=== PATIENT | female | born 1975 | race Caucasian/White ===

== ENCOUNTER → 2025-07-08 | Outpatient (CLI) | payer MEDICAID, SELFPAY ==
--- OUTSIDE RECORDS SUMMARY | 2025-07-09 10:46 | XMS RPT_ITS | CCD ---
Author Organization [facility] Care Team Providers Care Seo Professional Name Role Phone Marika Ortega Unavailable David Steven Unavailable Inder Jordan Admitting Unavaila ble Inder Jordan Attending Unavaila ble Octavio Tomlinson Admitting Unavailable Octavio Tomlinson Attending Unavailable Ortega, Marika Admitting Unavailable Ortega, Marika Attending Unavailable Ortega, Marika Admitting Unavailable Ortega, Marika Attending Unavailable Ortega, Marika Admitting Unavailable Ortega, Marika Attending Unavailable Apolinar Ta Admitting Unavailable Apolinar Ta Attending Unavailable Ortega, Marika Admitting Unavailable Ortega, Marika Attending Unavailable Ortega, Marika Admitting Unavailable Ortega, Marika Attending Unavailable Ortega, Marika Lara Primary Care Provider [phone] Ortega, Marika Lara Primary Care Provider Ortega, Marika Primary Care Provider Ortega, Marika Lara Primary Care Provider Ortega BOULEVARD GLASSWARE REPLACER, Marika Lara Primary Care Provider Ortega BOULEVARD GLASSWARE REPLACER, Marika Lara Primary Care Provider Ortega BOULEVARD GLASSWARE REPLACER, Marika Lara Primary Care Provider [phone] PRYKHODKO, GAYATHRI OLEKSEYOVICH Referring U navailable PRYKHODKO, GAYATHRI OLEKSEYOVICH Admitting U navailable ORTEGA, MARIKA LARA Primary Care Unavailable ORTEGA, MARIKA LARA Primary Care Unavailable MARIELLE PALMER Referring Unavailab le MARIELLE PALMER Admitting Unavailab le Ortega BOULEVARD GLASSWARE REPLACER, Marika Lara Primary Care Provider Ortega BOULEVARD GLASSWARE REPLACER, Marika Lara Primary Care Provider Arpita Coto RN Unavailable Unavailable Ortega BOULEVARD GLASSWARE REPLACER, Marika Lara Primary Care Provider MEGAN MCMAHAN Attending Unavai lable ORTEGA, MARIKA LARA Primary Care Unavailable MEGAN MCMAHAN Attending Unavai lable ORTEGA, MARIKA LARA Primary Care Unavailable ORTEGA, MARIKA LARA Primary Care Unavailable ORTEGA, MARIKA LARA Attending Unavailable MEGAN MCMAHAN Attending Unavai lable ORTEGA, MARIKA LARA Primary Care Unavailable MEGAN MCMAHAN Attending Unavai lable ORTEGA, MARIKA LARA Primary Care Unavailable ROTEGA, MARIKA LARA Primary Care Unavailable ORTEGA, MARIKA LARA Primary Care Unavailable LEONID ECHOLS Attending Unavailable MIHAI HOFFMAN Attending Unavailable ORTEGA, MARIKA LARA Primary Care Unavailable MARTIN NATION Attending Unavailab le ORTEGA, MAIRKA LARA Primary Care Unavailable MARTIR FISHER Attending Unavailable SELF Referring Unavailable Allergies Allergy Classification Reported Allergen(s) Allergy Type Date of Onset Reaction(s) Facility Corticosteroids (2 sources) Hydrocortisone Drug Allergy 04-11-20 18 Itching [facility] Latex (2 sources) Latex Substance Allergy 07-09-20 17 Rash [facility] Penicillins (antibiotic) (4 sources) Amoxicillin Drug Allergy 10-03-19 18 [facility] (20 sources) Latex; Translations: [LATEX] Propensity to adverse reactions to drug 07-09-20 17 Rash, Contact Dermatitis [facility] Work Phone: (20 sources) penicillin g; Translations: [PENICILLIN G] Propensity to adverse reactions to drug 10-03-19 18 [facility] (20 sources) Amoxicillin; Translations: [AMOXICILLIN] Drug Allergy 08-15-19 19 [facility] (20 sources) Hydrocortisone; Translations: [HYDROCORTISONE] Drug Allergy 04-11-20 18 Itching [facility] Medications Current Medications Medication Drug Class(es) Dates Sig (Normalized) Sig (Original) acetaminophen 325 mg / HYDROcodone bitartrate 5 mg oral tablet (3 sources) Opioid Agonist Start: 03-10-2020 End: 03-13-2020 take 1 tablet by mouth every six hours as needed for pain HYDROcodone-aceta minophen (NORCO) 5-325 mg per tablet Indications: Cellulitis of right lower extremity Take 1 (one) tablet by mouth every 6 (six) hours as needed for pain (Days supply per fill: {DAYS SUPPLY:3) . 12 tablet 0 03/10/2020 03/13/2020 Active Start: 08-28-2017 End: 09-02-2017 take 1 tablet by mouth every four hours for pain and pain HYDROcodone-acetaminophen (NORCO) 5-325 mg per tablet Indications: Post-op pain Take 1 (one) tablet by mouth every 4 (four) hours as needed. 20 tablet 0 08/28/2017 09/02/2017 Active [id number] 200 actuat albuterol 0.09 mg/actuat metered dose inhaler (20 sources) beta2-Adrenergic Agonist Start: 06-30-2021 End: 05-01-2024 take 2 puff(s) by inhalation every four to six hours as needed for wheezing albuterol 90 mcg/actuation inhaler Inhale 2 (two) puffs every 4 to 6 hours as needed for wheezing . 6.7 g 2 04/24/2024 Active Start: 08-25-2019 End: 09-24-2019 take 2 puff(s) by inhalation every six hours as needed for wheezing ProAir HFA 90 mcg/actuation inhaler Inhale 2 (two) puffs every 6 (six) hours as needed for wheezing . 1 Inhaler 0 08/25/2019 Active Start: 08-25-2019 End: 03-02-2021 take 2 puff(s) by inhalation every six hours as needed for wheezing ProAir HFA 90 mcg/actuation inhaler Inhale 2 (two) puffs every 6 (six) hours as needed for wheezing . 1 Inhaler 0 08/25/2019 03/02/2021 Discontinued (Therapy completed) Start: 08-25-2019 albuterol inha ler 2 puff aspirin 81 mg delayed release oral tablet (3 sources) Platelet Aggregation Inhibitor, Nonsteroidal Anti-inflammatory Drug Start: 01-26-2022 End: 02-25-2022 take 1 tablet by mouth twice daily aspirin 81 MG EC tablet Take 1 (one) tablet (81 mg total) by mouth 2 (two) times a day . 60 tablet 0 01/26/2022 02/25/2022 Active busPIRone hydrochloride 10 mg oral tablet (7 sources) Start: 01-22-2020 End: 01-21-2021 take 1 tablet by mouth three times daily busPIRone (BUSPAR) 10 MG tablet Indications: Anxiety and depression Take 1 (one) tablet (10 mg total) by mouth 3 (three) times a day . 90 tablet 2 01/22/2020 01/21/2021 Active cetirizine hydrochloride 10 mg oral tablet (18 sources) Histamine-1 Receptor Antagonist Start: 11-30-2022 End: 04-24-2025 take 1 tablet by mouth once daily cetirizine (ZYRTEC) 10 MG tablet Indications: Asthma, unspecified asthma severity, unspecified whether complicated, unspecified whether persistent Take 1 (one) tablet (10 mg total) by mouth daily . 90 tablet 1 04/24/2024 04/24/2025 Active cyclobenzaprine hydrochloride 10 mg oral tablet (3 sources) Muscle Relaxant Start: 06-06-2023 End: 07-23-2023 take 1 tablet by mouth twice daily as needed for pain cyclobenzaprine (FLEXERIL) 10 MG tablet Take 1 tablet p.o. twice daily as needed muscle spasm/pain. . 8 tablet 0 06/06/2023 07/23/2023 Discontinued (Patient's Request) Start: 02-07-2022 End: 02-17-2022 take 1 tablet by mouth three times daily as needed for muscle spasms cyclobenzaprine (FLEXERIL) 10 MG tablet Indications: S/P left knee arthroscopy Take 1 (one) tablet (10 mg total) by mouth 3 (three) times a day as needed for muscle spasms . 30 tablet 0 02/07/2022 02/17/2022 Active docusate sodium 100 mg oral capsule (3 sources) Start: 05-13-2019 take 1 capsule by mouth at bedtime docusate 100 MG Cap capsule Take 1 capsule by mouth at bedtime. 30 capsule 0 05/13/2019 Active ELDERBERRY FRUIT (11 sources) End: 07-23-2023 ELDERBERRY FRUIT ORAL Take by mouth daily . 0 07/23/2023 Discontinued (Patient's Request) ELDERBERRY FRUIT ORAL Take by mouth daily . 0 Active erythromycin 0.005 mg/mg ophthalmic ointment (1 source) Macrolide, Macrolide Antimicrobial Start: 02-19-2019 End: 02-26-2019 apply 3.5 g into the eye(s) four times daily erythromycin 0.5% (ROMYCIN) ophthalmic ointment Administer into the left eye 4 (four) times a day for 7 days . 3.5 g 0 02/19/2019 02/26/2019 Active estrogens, conjugated (correction) 0.625 mg/ml vaginal cream (8 sources) Estrogen Start: 05-04-2024 conjugated estrogens (Premarin) vaginal cream Insert 0.5 (one-half) g into the vagina twice weekly . 30 g 05/04/2024 Active Start: 09-12-2023 End: 09-11-2024 conjugated estrogens (Premar in) vaginal cream Insert 0.5 (one-half) g into the vagina daily Daily for two weeks followed by twice weekly . A pea size amount when applying internally . 42.5 g 3 09/12/2023 05/04/2024 Discontinued fluconazole 150 mg oral tablet (6 sources) Azole Antifungal Start: 07-25-2023 End: 07-25-2023 take 1 tablet by mouth once fluconazole (DIFLUCAN) 150 MG tablet Take 1 (one) tablet (150 mg total) by mouth once for 1 dose . 1 tablet 0 07/25/2023 07/25/2023 Active Start: 11-10-2018 End: 06-05-2019 take 1 tablet by mouth every other day fluconazole (DIFLUCAN) 150 MG tablet Take 1 (one) tablet (150 mg total) by mouth every other day . 3 tablet 0 11/10/2018 06/05/2019 Discontinued (Therapy completed) Start: 08-15-2018 End: 08-20-2018 take 1 tablet by mouth every other day fluconazole (DIFLUCAN) 150 MG tablet Take 1 (one) tablet (150 mg total) by mouth every other day for 3 doses . 3 tablet 0 08/15/2018 08/20/2018 Active fluocinonide 0.5 mg/ml topical cream (12 sources) Corticosteroid Start: 04-04-2018 End: 11-10-2019 fluocinonide (LIDEX) 0.05 % cream Indications: Skin rash Apply topically 2 (two) times a day . 120 g 2 11/10/2018 11/10/2019 Active hydrocortisone 25 mg/ml topical cream (12 sources) Corticosteroid Start: 06-29-2019 End: 07-29-2019 hydrocortisone (ANUSOL-HC) 2.5 % Cream Indications: Rectal bleed Apply 1 Application topically 2 times daily. 1 Tube 0 06/29/2019 07/29/2019 Active Start: 12-06-2017 End: 12-06-2018 hydrocortisone valerate (ABI T-JM) 0.2 % cream Indications: Dermatitis Apply topically 2 (two) times a day. 45 g 2 12/06/2017 04/04/2018 Discontinued Start: 12-06-2017 End: 12-06-2018 hydrocortisone valerate (ABI T-JM) 0.2 % cream Indications: Dermatitis Apply topically 2 (two) times a day. 45 g 2 12/06/2017 12/06/2018 Active ibuprofen 600 mg oral tablet (17 sources) Nonsteroidal Anti-inflammatory Drug Start: 06-22-2023 take 1 tablet by mouth every six hours as needed for pain ibuprofen (ADVIL,MOTRIN) 600 MG tablet Take 1 (one) tablet (600 mg total) by mouth every 6 (six) hours as needed for pain . 10 tablet 06/22/2023 Active Start: 02-19-2019 End: 02-19-2019 ibuprofen (ADVIL,MOTRIN) tab let 400 mg Start: 10-31-2018 End: 11-30-2018 take 1 tablet by mouth every eight hours as needed ibuprofen (ADVIL,MOTRIN) 400 MG tablet Take 1 (one) tablet (400 mg total) by mouth every 8 (eight) hours as needed for pain . 20 tablet 0 10/31/2018 11/30/2018 Active Start: 04-11-2018 take 1 tablet by earle three times daily as needed for pain ibuprofen 600 MG Tab tablet Take 1 tablet by mouth 3 times daily as needed for Mild Pain for up to 5 days. 15 tablet 0 04/11/2018 Active Start: 10-04-2017 End: 10-05-2017 take 1 tablet by mouth every six hours Iron (3 sources) IRON PO Take by mouth. 0 Active Lactobacillus acidoph-L.bulgar 1 million cell Tab (3 sources) Start: 04-12-2021 Lactobacillus acidoph-L.bulgar 1 million cell Tab Take 1 tablet by mouth daily . 90 tablet 1 04/12/2021 Active lactobacillus acidophilus 1 mg oral tablet (20 sources) Start: 02-20-2019 take 1 capsule by mouth once daily Lactobacillus acidophilus 0.5 mg (100 million cell) Tab Take 1 capsule by mouth daily . 90 tablet 3 02/20/2019 Active Start: 07-21-2018 End: 11-10-2018 take 1 capsule by mouth once daily Lactobacillus acidophilus 0.5 mg (100 million cell) Tab Take 1 capsule by mouth daily . 90 tablet 3 02/20/2019 Active End: 11-10-2018 take 1 tablet by mouth once daily in the morning LACTOBACILLUS ACIDOPHILUS (PROBIOTIC ORAL) Take 1 tablet by mouth every morning. 0 11/10/2018 Discontinued (Therapy completed) End: 11-10-2018 take 1 tablet by mouth once daily in the morning LACTOBACILLUS ACIDOPHILUS (PROBIOTIC ORAL) Take 1 tablet by mouth every morning. 0 11/10/2018 Discontinued take 1 tablet by earle th once daily in the morning LACTOBACILLUS ACIDOPHILUS (PROBIOTIC ORAL) Take 1 tablet by mouth every morning. 0 Active take 1 tablet by earle th once daily in the morning LACTOBACILLUS ACIDOPHILUS (PROBIOTIC ORAL) Take 1 tablet by mouth every morning. Active meclizine hydrochloride 25 mg oral tablet (1 source) Antiemetic Start: 07-05-2023 take 1 tablet by mouth three times daily as needed for nausea meclizine (ANTIVERT) 25 mg tablet Take 1 (one) tablet (25 mg total) by mouth 3 (three) times a day as needed for nausea . 9 tablet 0 07/05/2023 Active omeprazole 40 mg delayed release oral capsule (20 sources) Proton Pump Inhibitor Start: 07-23-2023 End: 04-19-2025 take 1 capsule by mouth once daily omeprazole (PRILOSEC) 40 MG capsule Indications: Laryngopharyngeal reflux disease Take 1 (one) capsule (40 mg total) by mouth daily . 90 capsule 3 04/24/2024 04/19/2025 Active Start: 06-01-2022 take 1 capsule by mo ut once daily omeprazole (PRILOSEC) 40 MG capsule Indications: Laryngopharyngeal reflux disease Take 1 (one) capsule (40 mg total) by mouth daily . 90 capsule 3 06/01/2022 Active Start: 08-21-2021 End: 09-20-2021 take 1 capsule by mouth once daily omeprazole (PRILOSEC) 40 MG capsule Indications: Laryngopharyngeal reflux disease Take 1 (one) capsule (40 mg total) by mouth daily . 90 capsule 3 08/21/2021 Active Start: 04-12-2021 End: 05-12-2021 take 1 capsule by mouth once daily omeprazole (PRILOSEC) 40 MG capsule Indications: Laryngopharyngeal reflux disease Take 1 (one) capsule (40 mg total) by mouth daily . 30 capsule 5 04/12/2021 Active predniSONE 20 mg oral tablet (6 sources) Start: 08-25-2019 End: 08-28-2019 take 3 tablets by mouth once daily predniSONE (DELTASONE) 20 MG tablet Take 3 (three) tablets (60 mg total) by mouth daily for 3 days . 9 tablet 0 08/25/2019 08/28/2019 Active Start: 08-25-2019 End: 08-25-2019 predniSONE (DELTASONE) table t 60 mg Start: 07-30-2017 take 1 tablet by earle th twice daily predniSONE 20 MG Tab tablet Take 1 tablet by mouth 2 times daily. 10 tablet 0 07/30/2017 Active Probiotic Product (PROBIOTIC DAILY PO) (3 sources) Probiotic Produc t (PROBIOTIC DAILY PO) Take by mouth. 0 Active levothyroxine sodium 0.088 mg oral tablet (20 sources) l-Thyroxine Start: 06-01-2022 End: 12-02-2024 take 1 tablet by mouth once daily in the morning levothyroxine (SYNTHROID, LEVOTHROID) 88 MCG tablet Indications: Hypothyroidism, unspecified type Take 1 (one) tablet (88 mcg total) by mouth every morning . 90 tablet 12/02/2024 Active Start: 02-24-2020 End: 12-12-2021 take 1 tablet by mouth once daily in the morning levothyroxine (SYNTHROID, LEVOTHROID) 88 MCG tablet Indications: Hypothyroidism, unspecified type Take 1 (one) tablet (88 mcg total) by mouth every morning . 90 tablet 1 12/13/2021 Active Start: 12-24-2018 take 1 tablet by earle th once daily in the morning levothyroxine (SYNTHROID, LEVOTHROID) 88 MCG tablet Indications: Hypothyroidism, unspecified type Take 1 (one) tablet (88 mcg total) by mouth every morning . 90 tablet 3 02/20/2019 Active Start: 10-20-2018 take 1 tablet by earle th once daily in the morning levothyroxine (SYNTHROID, LEVOTHROID) 88 MCG tablet Indications: Hypothyroidism, unspecified type take 1 tablet by mouth every morning 30 tablet 1 10/20/2018 Active Start: 12-06-2017 End: 06-26-2019 take 1 tablet by mouth once daily in the morning levothyroxine (SYNTHROID, LEVOTHROID) 75 MCG tablet Indications: Hypothyroidism, unspecified type take 1 tablet by mouth every morning 30 tablet 5 02/17/2018 04/04/2018 Discontinued (Reorder (Suppress CancelRx Message to Pharmacy)) Start: 10-04-2017 End: 12-06-2017 Start: 06-14-2017 levothyroxine 100 MCG Tab tablet Completed/Discontinued Medications Medication Drug Class(es) Dates Sig (Normalized) Sig (Original) acetaminophen 325 mg oral tablet (3 sources) Start: 12-09-2018 End: 12-09-2018 acetaminophen (TYLENOL) tablet 975 mg Start: 10-31-2018 End: 10-31-2018 acetaminophen (TYLENOL) tabl et 650 mg Start: 10-04-2017 End: 10-05-2017 take 2 tablets by mouth every four hours acetaminophen 325 mg / oxyCODONE hydrochloride 5 mg oral tablet (1 source) Opioid Agonist Start: 10-04-2017 End: 10-04-2017 take 2 tablets by mouth every twenty-four hours as needed Acidophilus Probiotic Complex 250 million cell cap (1 source) Start: 05-21-2020 End: 09-12-2020 take 1 capsule by mouth once daily Acidophilus Probiotic Complex 250 million cell cap TAKE 1 CAPSULE BY MOUTH DAILY 90 capsule 1 05/21/2020 09/12/2020 Discontinued (Reorder) atorvastatin 10 mg oral tablet (4 sources) HMG-CoA Reductase Inhibitor Start: 12-06-2022 End: 12-06-2023 take 1 tablet by mouth once daily atorvastatin (LIPITOR) 10 MG tablet Take 1 (one) tablet (10 mg total) by mouth daily . 90 tablet 1 12/06/2022 05/03/2023 Discontinued (Non-compliance (Suppress CancelRx Message to Pharmacy)) Azithromycin (4 sources) Macrolide Antimicrobial Start: 08-25-2019 End: 09-21-2019 take 2 tablets by mouth once daily, then take 1 tablet by mouth, then take 1 tablet by mouth once daily azithromycin (Z-JAIME) 5 day dose pack Two tabs given in ER already today (day 1). Please take 1 tablet by mouth daily on days 2-5. . 4 tablet 0 08/25/2019 09/21/2019 Discontinued (Error) Start: 08-25-2019 take 2 tablets by mo uth once daily, then take 1 tablet by mouth, then take 1 tablet by mouth once daily azithromycin (Z-JAIME) 5 day dose pack Two tabs given in ER already today (day 1). Please take 1 tablet by mouth daily on days 2-5. . 4 tablet 0 08/25/2019 Active Start: 08-25-2019 End: 08-25-2019 azithromycin (ZITHROMAX) tab let 500 mg calcium chloride 0.0014 meq/ ml / potassium chloride 0.004 meq/ml / sodium chloride 0.103 meq/ml / sodium lactate 0.028 meq/ml injectable solution (3 sources) Start: 06-26-2019 End: 06-26-2019 lactated ringers IV solution Start: 10-04-2017 End: 10-05-2017 cephalexin 500 mg oral capsule (3 sources) Cephalosporin Antibacterial Start: 01-31-2018 End: 02-14-2018 take 1 capsule by mouth four times daily cephALEXin (KEFLEX) 500 MG capsule Indications: Cellulitis of right lower leg Take 1 (one) capsule (500 mg total) by mouth 4 (four) times a day. 28 capsule 0 01/31/2018 02/14/2018 Discontinued 12 hr cetirizine hydrochloride 5 mg / pseudoephedrine hydrochloride 120 mg extended release oral tablet (1 source) alpha-Adrenergic Agonist, Histamine-1 Receptor Antagonist Start: 09-18-2021 End: 11-14-2021 take 1 tablet by mouth every twelve hours as needed for congestion cetirizine-pseudo ePHEDrine (ZyrTEC-D) 5-120 mg per tablet Take 1 tablet p.o. every 12 hours as needed congestion. . 14 tablet 0 09/18/2021 11/14/2021 Discontinued (Therapy completed) clindamycin 150 mg oral capsule (10 sources) Lincosamide Antibacterial Start: 04-05-2021 End: 04-12-2021 take 3 capsules by mouth three times daily clindamycin (CLEOCIN) 150 MG capsule Take 3 (three) capsules (450 mg total) by mouth 3 (three) times a day for 7 days . 63 capsule 0 04/05/2021 04/12/2021 Start: 03-10-2020 End: 03-18-2020 take 3 capsules by mouth three times daily clindamycin (CLEOCIN) 150 MG capsule Take 3 (three) capsules (450 mg total) by mouth 3 (three) times a day for 7 days . 63 capsule 0 03/10/2020 03/18/2020 cyanocobalamin, vitamin B-12 , (VITAMIN B-12 ORAL) (9 sources) End: 06-03-2023 cyanocobalamin, vitamin B-12 , (VITAMIN B-12 ORAL) Take by mouth daily . 0 06/03/2023 Discontinued (Patient's Request) cyanocobalamin, vitamin B-12, (VITAMIN B-12 ORAL) Take by mouth daily . 0 Active diphenhydrAMINE hydrochloride 25 mg oral tablet (3 sources) Histamine-1 Receptor Antagonist Start: 10-05-2017 End: 10-05-2017 take 25 mg by mouth every six hours as needed diphenhydrAMINE (BENADRYL) oral solid 25 mg Start: 10-04-2017 End: 10-04-2017 diphenhydrAMINE (BENADRYL) injection 25 mg Start: 10-04-2017 End: 10-04-2017 take 12.5 mg intravenous route every twenty-four hours as needed diphenhydrAMINE (BENADRYL) injection 12.5 mg docusate sodium 50 mg / sennosides, correction 8.6 mg oral tablet (1 source) Start: 10-04-2017 End: 10-05-2017 doxycycline hyclate 100 mg oral tablet (4 sources) Tetracycline- class Drug Start: 12-06-2017 End: 01-03-2018 take 1 tablet by mouth twice daily doxycycline hyclate (VIBRA-TABS) 100 MG tablet Indications: Acute non-recurrent sinusitis, unspecified location Take 1 (one) tablet (100 mg total) by mouth 2 (two) times a day. 20 tablet 0 12/06/2017 01/03/2018 Discontinued escitalopram 10 mg oral tablet (20 sources) Serotonin Reuptake Inhibitor Start: 12-06-2017 End: 02-20-2020 take 1 tablet by mouth once daily escitalopram oxalate (LEXAPRO) 10 MG tablet Indications: Current severe episode of major depressive disorder without psychotic features without prior episode (HCC) Take 1 (one) tablet (10 mg total) by mouth daily. 90 tablet 3 01/03/2018 04/04/2018 Discontinued (Reorder (Suppress CancelRx Message to Pharmacy)) famotidine (PEPCID) injection 20 mg (1 source) Start: 10-04-2017 End: 10-05-2017 take 20 mg intravenous route every twelve hours as needed famotidine (PEPCID) injection 20 mg ferrous sulfate 325 mg oral tablet (1 source) End: 10-05-2017 take 1 tablet by mouth once daily in the morning ferrous sulfate 325 (65 FE) MG tablet Take 325 mg by mouth every morning. 10/05/2017 Discontinued FLUoxetine 20 mg oral capsule (20 sources) Serotonin Reuptake Inhibitor Start: 01-22-2020 End: 11-30-2022 take 1 capsule by mouth once daily FLUoxetine (PROZAC) 20 MG capsule Indications: Anxiety and depression Take 1 (one) capsule (20 mg total) by mouth daily . 90 capsule 1 04/12/2021 11/30/2022 Discontinued (Therapy completed) furosemide 20 mg oral tablet (20 sources) Loop Diuretic Start: 03-08-2021 End: 11-06-2023 take 1 tablet by mouth once daily as needed furosemide (LASIX) 20 MG tablet Indications: Localized edema Take 1 (one) tablet (20 mg total) by mouth daily as needed (swelling) . 30 tablet 1 11/06/2022 05/03/2023 Discontinued (Patient's Request) hydroCHLOROthiazide 25 mg oral tablet (20 sources) Thiazide Diuretic Start: 03-18-2020 End: 04-12-2022 take 1 tablet by mouth once daily hydroCHLOROthiazide (HYDRODIURIL) 25 MG tablet Indications: Localized edema Take 1 (one) tablet (25 mg total) by mouth daily . 90 tablet 1 02/26/2022 04/12/2022 Discontinued (Therapy completed) Start: 02-14-2018 End: 01-21-2021 take 1 capsule by mouth once daily hydroCHLOROthiazide (MICROZIDE) 12.5 mg capsule Indications: Localized edema Take 1 (one) capsule (12.5 mg total) by mouth daily. 30 capsule 2 02/14/2018 04/04/2018 Discontinued (Reorder (Suppress CancelRx Message to Pharmacy)) HYDROCHLOROTHIAZ LAKSHMI PO Take by mouth. 0 Active 0.5 ml HYDROmorphone hydrochloride 1 mg/ml prefilled syringe (1 source) Opioid Agonist Start: 10-04-2017 End: 10-04-2017 [id number]-SVKA-b e-mv 1.5 mg iron- 8.73 mg CpID (16 sources) End: 01-23-2021 [id number]-ece-[id number]-[id number]-DEJH -be-mv 1.5 mg iron- 8.73 mg CpID Take by mouth . 0 01/23/2021 Discontinued (Therapy completed) [id number]-XP-hhu-epa- OOV-TSCQ-iw-mv 1.5 mg iron- 8.73 mg CpID Take by mouth . 0 Active 1 ml ketorolac tromethamine 30 mg/ml injection (3 sources) Nonsteroidal Anti-inflammatory Drug, Cyclooxygenase Inhibitor Start: 10-29-2020 End: 10-29-2020 ketorolac (TORADOL) injection 60 mg Start: 09-21-2019 End: 09-21-2019 ketorolac (TORADOL) injectio n 60 mg Start: 07-16-2019 End: 07-16-2019 ketorolac (TORADOL) injectio n 15 mg L.acidophilus,helvet-B.bifid um (Acidophilus Probiotic Complex) 250 million cell cap (9 sources) Start: 01-23-2021 End: 03-02-2021 take 1 capsule by mouth once daily L.acidophilus,helvet-B.bifidum (Acidophilus Probiotic Complex) 250 million cell cap Take 1 capsule by mouth daily . 90 capsule 1 01/23/2021 03/02/2021 Discontinued (Therapy completed) Start: 01-23-2021 take 1 capsule by mouth once daily L.acidophilus,helvet-B.bifidum (Acidophi geovany Probiotic Complex) 250 million cell cap Take 1 capsule by mouth daily . 90 capsule 1 01/23/2021 Active Start: 09-12-2020 End: 01-23-2021 take 1 capsule by mouth once daily L.acidophilus,helvet-B.bifidum (Acidophi geovany Probiotic Complex) 250 million cell cap Take 1 capsule by mouth daily . 90 capsule 1 09/12/2020 01/23/2021 Discontinued (Reorder) Start: 09-12-2020 take 1 capsule by mouth once daily L.acidophilus,helvet-B.bifidum (Acidophi geovany Probiotic Complex) 250 million cell cap Take 1 capsule by mouth daily . 90 capsule 1 09/12/2020 Active L.crispa,simón,ludwin,rhamno/allyson t (AZO DUAL PROTECTION ORAL) (2 sources) End: 07-13-2022 L.crispa,simón,ludwin,rhamno/allyson t (AZO DUAL PROTECTION ORAL) Take by mouth . 0 07/13/2022 Discontinued (Therapy completed) L.crispa,simón,je n,rhamno/bact (AZO DUAL PROTECTION ORAL) Take by mouth . 0 Active loratadine 10 mg oral tablet (8 sources) Start: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 [id number] #### LAB [address] [place] [address] Jose Goodwin M.D. [id number] Neutrophils/100 WBC (Bld) 48.3 % Normal [facility] Comment on above: Performed By: #### L [id number] #### LAB [address] [place] [address] Jose Goodwin M.D. [id number] Platelet mean volume (Bld) [Entitic vol] 10.3 fL Normal 9.4-12.4 [facility] Comment on above: Performed By: #### L [id number] #### LAB [address] [place] [address] Jose Goodwin M.D. [id number] Platelets (Bld) [#/Vol] 291 10*3/uL Normal 150-400 [facility] Comment on above: Performed By: #### L [id number] #### MH LAB [address] [address] Jose Goodwin M.D. [id number] RBC (Bld) [#/Vol] 4.78 10*6/uL Normal 4.00-5.20 [facility] Comment on above: Performed By: #### L [id number] #### MH LAB [address] [address] Jose Goodwin M.D. [id number] WBC (Bld) [#/Vol] 7.01 10*3/uL Normal 4.50-11.00 [facility] Comment on above: Performed By: #### L [id number] #### G[facility] LAB [address] [address] Jose Goodwin M.D. [id number] COMPREHENSIVE METABOLIC PANE Bucky 02-27-2024 Albumin [Mass/Vol] 4.1 g/dL Normal 3.2-5.2 [facility] Comment on above: Order Comment: [facility] has implemented the eGFR calculation approach that does not have a coefficient for race that conforms to the NKF-ASN Task Force Recommendations. Performed By: #### 4 [id number] #### MH LAB [address] [address] Jose Goodwin M.D. [id number] ALP [Catalytic activity/Vol] 94 U/L Normal 40-150 [facility] Comment on above: Order Comment: [facility] has implemented the eGFR calculation approach that does not have a coefficient for race that conforms to the NKF-ASN Task Force Recommendations. Performed By: #### 4 [id number] #### MH LAB [address] [address] Jose Goodwin M.D. [id number] ALT [Catalytic activity/Vol] 17 U/L Normal 0-35 U/L [facility] Comment on above: Order Comment: [facility] has implemented the eGFR calculation approach that does not have a coefficient for race that conforms to the NKF-ASN Task Force Recommendations. Performed By: #### 4 [id number] #### LAB [address] [address] Jose Goodwin M.D. [id number] Anion gap [Moles/Vol] 14 mmol/L Normal 10-20 [facility] Comment on above: Order Comment: [facility] has implemented the eGFR calculation approach that does not have a coefficient for race that conforms to the NKF-ASN Task Force Recommendations. Performed By: #### 4 [id number] #### LAB [address] [address] Jose Goodwin M.D. [id number] AST [Catalytic activity/Vol] 23 U/L Normal 0-35 U/L [facility] Comment on above: Order Comment: [facility] has implemented the eGFR calculation approach that does not have a coefficient for race that conforms to the NKF-ASN Task Force Recommendations. Performed By: #### 4 [id number] #### LAB [address] [address] Jose Goodwin M.D. [id number] Bilirubin [Mass/Vol] 0.4 mg/dL Normal 0.0-1.3 [facility] Comment on above: Order Comment: [facility] has implemented the eGFR calculation approach that does not have a coefficient for race that conforms to the NKF-ASN Task Force Recommendations. Performed By: #### 4 [id number] #### LAB [address] [address] Jose Goodwin M.D. [id number] Calcium [Mass/Vol] 9.4 mg/dL Normal 8.4-10.2 [facility] Comment on above: Order Comment: [facility] has implemented the eGFR calculation approach that does not have a coefficient for race that conforms to the NKF-ASN Task Force Recommendations. Performed By: #### 4 [id number] #### LAB [address] [address] Jose Goodwin M.D. [id number] Chloride [Moles/Vol] 105 mmol/L Normal 98-108 [facility] Comment on above: Order Comment: [facility] has implemented the eGFR calculation approach that does not have a coefficient for race that conforms to the NKF-ASN Task Force Recommendations. Performed By: #### 4 6182 #### LAB [address] [place], [place] [address] Jose Goodwin M.D. [id number] Creatinine [Mass/Vol] 0.88 mg/dL Normal 0.40-1.10 [facility] Comment on above: Order Comment: [facility] has implemented the eGFR calculation approach that does not have a coefficient for race that conforms to the NKF-ASN Task Force Recommendations. Performed By: #### 4 6187 #### LAB [address] [address] Jose Goodwin M.D. [id number] EGFR 81 mL/min/1.73 m2 Normal >=60 [facility] Comment on above: Order Comment: [facility] has implemented the eGFR calculation approach that does not have a coefficient for race that conforms to the NKF-ASN Task Force Recommendations. Result Comment: Siena mated GFR was calculated using the 2020 CKD-EPI creatinine equation. Performed By: #### 4 6170 #### LAB [address] [address] Jose Goodwin M.D. [id number] Glucose [Mass/Vol] 93 mg/dL Normal 65-99 [facility] Comment on above: Order Comment: [facility] has implemented the eGFR calculation approach that does not have a coefficient for race that conforms to the NKF-ASN Task Force Recommendations. Performed By: #### 4 6198 #### LAB [address] [id number] Jose Goodwin M.D. [id number] HCO3 (Bld) [Moles/Vol] 24 mmol/L Normal 21-32 [facility] Comment on above: Order Comment: [facility] has implemented the eGFR calculation approach that does not have a coefficient for race that conforms to the NKF-ASN Task Force Recommendations. Performed By: #### 4 [id number] #### MH LAB [address] [id number] Jose Goodwin M.D. [id number] Potassium [Moles/Vol] 4.0 mmol/L Normal 3.5-5.1 [facility] Comment on above: Order Comment: [facility] has implemented the eGFR calculation approach that does not have a coefficient for race that conforms to the NKF-ASN Task Force Recommendations. Performed By: #### 4 [id number] #### LAB [address] [address] Jose Goodwin M.D. [id number] Protein [Mass/Vol] 7.3 g/dL Normal 6.0-8.0 [facility] Comment on above: Order Comment: [facility] has implemented the eGFR calculation approach that does not have a coefficient for race that conforms to the NKF-ASN Task Force Recommendations. Performed By: #### 4 [id number] #### LAB [address] [address] Jose Goodwin M.D. [id number] Sodium [Moles/Vol] 139 mmol/L Normal 135-145 [facility] Comment on above: Order Comment: [facility] has implemented the eGFR calculation approach that does not have a coefficient for race that conforms to the NKF-ASN Task Force Recommendations. Performed By: #### 4 [id number] #### LAB [address] [address] Jose Goodwin M.D. [id number] Urea nitrogen [Mass/Vol] 17 mg/dL Normal 8-25 [facility] Comment on above: Order Comment: [facility] has implemented the eGFR calculation approach that does not have a coefficient for race that conforms to the NKF-ASN Task Force Recommendations. Performed By: #### 4 6126 #### LAB [address] [address] Jose Goodwin M.D. [id number] Urea nitrogen/Creatinine [Mass ratio] 19.3 mg/mg Normal 10.0-20.0 [facility] Comment on above: Order Comment: [facility] has implemented the eGFR calculation approach that does not have a coefficient for race that conforms to the NKF-ASN Task Force Recommendations. Performed By: #### 4 [id number] #### MH LAB [address] [address] Jose Goodwin M.D. [id number] HEMOGLOBIN A1Con 02-27-2024 Glucose [Mass/Vol] 117 mg/dL High 74-114 [facility] Comment on above: Performed By: #### 4 [id number] #### MH LAB [address] [address] Jose Goodwin M.D. [id number] HbA1c (Bld) [Mass fraction] 5.7 % High 4.2-5.6 [facility] Comment on above: Performed By: #### 4 8202 #### MH LAB [address] [address] Jose Goodwin M.D. [id number] LIPID PANELon 02-27-2024 Cholesterol [Mass/Vol] 194 mg/dL Normal 100-199 [facility] Comment on above: Performed By: #### 4 6087 #### MH LAB [address] [address] Jose Goodwin M.D. [id number] Cholesterol in HDL [Mass/Vol] 54 mg/dL Normal 40-59 [facility] Comment on above: Performed By: #### 4 6087 #### MH LAB [address] [address] Jose Goowdin M.D. [id number] Cholesterol.total/Chol esterol in HDL [Mass ratio] 3.6 {ratio} Normal [facility] Comment on above: Result Comment: Fema le Cholesterol/HDL Ratio: Average risk: 4.4 1/2 average risk: 3.3 2 x average risk: 7.1 Performed By: #### 4 6087 #### MH LAB [address] [address] Jose Goodwin M.D. [id number] LDL CHOLESTEROL CALCULATED 121 mg/dL Normal 10-130 [facility] Comment on above: Result Comment: [facility] Cholesterol Education Program Guidelines: LDL Cholesterol Optimal: <100 mg/dL Near Optimal/above Optimal: 100-129 mg/dL Borderline High: 130-159 mg/dL High: 160-189 mg/dL Very High: greater than or equal to 190 mg/dL Performed By: #### 4 6087 #### LAB [address] [address] Jose Goodwin M.D. [id number] NON HDL CHOL 140 mg/dL Normal [facility] Comment on above: Result Comment: [facility] Cholesterol Education Program Guidelines: NON HDL Cholesterol Desirable: <130 mg/dL Borderline High: 130-159 mg/dL High: 160-189 mg/dL Very High: > or = 190 mg/dL Performed By: #### 4 [id number] #### LAB [address] [address] Jose Goodwin M.D. [id number] Triglyceride [Mass/Vol] 93 mg/dL Normal 30-150 [facility] Comment on above: Performed By: #### 4 [id number] #### LAB [address] [address] Jose Goodwin M.D. [id number] T4, FREEon 02-27-2024 Free T4 [Mass/Vol] 1.3 ng/dL Normal 0.7-1.7 [facility] Comment on above: Performed By: #### 4 6567 #### LAB [address] [address] Jose Goodwin M.D. [id number] TSHon 02-27-2024 TSH Qn 3.06 m[IU]/L Normal 0.27-4.20 [facility] Comment on above: Performed By: #### 4 6613 #### LAB [address] [address] Jose Goodwin M.D. [id number] COVID-19, MOLECULARon 2022 SARS-CoV-2 (COVID-19) Ab IA Ql Not detected Normal Not Detected [facility] Comment on above: Result Comment: Test ing was performed using the [employer] ID NOW COVID-19 assay on the ID NOW platform. This test has not been approved for use in asymptomatic patients and its performance in this patient population has not been evaluated. Negative results do not rule out the presence of SARS-CoV-2/COVID-19. Performed By: #### L [id number] #### ONED FSED POCT LAB [address] [address] Boyd López D.O. [id number] XR CHEST AP/PA AND LATon XR CHEST AP/PA AND LAT EXAMINATION: XR CHEST AP/PA AND LAT HISTORY: ORDERING SYSTEM PROVIDED HISTORY: cough, TECHNOLOGIST PROVIDED HISTORY: Illness/Other Reason for exam: /o body aches, congestion, lower back pain x 1 week. Cancer History: n Surgery, RadiationHistory: n Encounter Type: Initial Additional signs and symptoms: N ORDERING SYSTEM PROVIDED DIAGNOSIS CODES: COMPARISON: 11/11/2015 FINDINGS: The lungs are clear of airspace consolidation. There is no appreciable pneumothorax or pleural effusion. The pulmonary vascularity is within normal limits for technique. The cardiomediastinal silhouette is within normal limits. IMPRESSION: Lungs are clear. No acute cardiopulmonary disease. Workstation ID: [id number] Dictated by: GREGORY CRAIG on SatJun 06, 2023 5:01:38 PM EDT Transcribed by: GREGORY CRAIG on SatJun 06, 2023 5:01:38 PM EDT Finalized by: GREGORY CRAIG on SatJun 06, 2023 5:01:38 PM EDT [facility] Comment on above: Order Comment: Injur y/Trauma or Illness?:Illness/Other How long have you had these symptoms (acute/chronic)?:Acute Reason for exam?:/o body aches, congestion, lower back pain x 1 week. History of cancer?:n Surgeries, chemotherapy, or radiation?:n Type of Exam?:Initial Additional signs and symptoms?:N Chlamydia/Gonorrhoeae Amplif ied RNAOrdered By: Kelsy Arrington on 06-04-2023 C. trachomatis rRNA MANAS+probe Ql (Vag fld) Negative [facility] N. gonorrhoeae rRNA MANAS+probe Ql (Vag fld) Negative [facility] No Panel InformationOrdered By: Kelsy Arrington on 06-04-2023 Interpretation and review of laboratory results Normal [facility] Trichomonas vaginalis Amplif ied RNAon 06-04-2023 T. vaginalis rRNA MANAS+probe Ql (Vag fld) [facility] V[facility] DNA ProbesOrdered By: Yoon Kat on 06-04-2023 Nataliia sp DNA Probe+sig amp Ql (Vag fld) Negative Negative [facility] G. vaginalis DNA Probe+sig amp Ql (Vag fld) Negative Negative [facility] Interpretation and review of laboratory results Normal [facility] T. vaginalis DNA Probe+sig amp Ql (Vag fld) Refer to Trichomonas Amplified RNA Result Negative [facility] Vaginitis DNA ProbesOrdered By: Cielo Pickens on 05-04-2023 Nataliia sp DNA Probe+sig amp Ql (Vag fld) Negative Negative [facility] G. vaginalis DNA Probe+sig amp Ql (Vag fld) Negative Negative [facility] Interpretation and review of laboratory results Normal [facility] T. vaginalis DNA Probe+sig amp Ql (Vag fld) Negative Negative [facility] HbA1c (Bld) [Mass fraction]O rdered By: Gia Lawrence on 12-02-2022 Average glucose Estimated from glycated hemoglobin (Bld) [Mass/Vol] 108 mg/dL 68 - 114 mg/dL [facility] Interpretation and review of laboratory results Normal [facility] Normal: 4.0% - 5.6% Increased risk for diabetes: 5.7% - 6.4% Diabetes: >= 6.5% Pediatrics: No established reference range Estimated average glucose: 68-114 mg/dL [facility] Hemoglobin [id number] By: Wilma Lawrence on 12-02-2022 HbA1c (Bld) [Mass fraction] 5.4 % 4.0 - 5.6 % [facility] B12/Folateon 11-30-2022 Cobalamin (Vitamin B12) [Mass/Vol] 592 pg/mL 193 - 986 pg/mL [facility] Folate [Mass/Vol] 10.0 ng/mL 3.1 - 17.5 ng/mL [facility] Comment on above: Deficient <2.2 Borderline 2.2 - 3.0 Excessive >17.5 Interpretation and review of laboratory results Normal [facility] Comprehensive metabolic 2000 panelon 11-30-2022 Albumin [Mass/Vol] 3.6 g/dL 3.2 - 5.2 g/dL [facility] ALP [Catalytic activity/Vol] 101 U/L 40 - 150 U/L [facility] ALT [Catalytic activity/Vol] 37 U/L 14 - 65 U/L [facility] Anion gap [Moles/Vol] 7 mmol/L Low 10 - 2 0 mmol/L [facility] AST [Catalytic activity/Vol] 20 U/L 0 - 45 U/L [facility] Bilirubin [Mass/Vol] 0.3 mg/dL 0.0 - 1 .3 mg/dL [facility] Calcium [Mass/Vol] 9.1 mg/dL 8.4 - 10. 2 mg/dL [facility] Chloride [Moles/Vol] 109 mmol/L High 98 - 10 8 mmol/L [facility] Creatinine [Mass/Vol] 0.85 mg/dL 0.40 - 1.10 mg/dL [facility] GFR/1.73 sq M.predicted CKD-EPI (S/P/Bld) [Vol rate/Area] 85 - PINF [facility] Comment on above: Estimated GFR was ca lculated using the 2020 CKD-EPI creatinine equation. Glucose [Mass/Vol] 85 mg/dL 65 - 99 mg/dL [facility] HCO3 [Moles/Vol] 26 mmol/L 21 - 32 mmol/L [facility] Potassium [Moles/Vol] 4.4 mmol/L 3.5 - 5.1 mmol/L [facility] Protein [Mass/Vol] 7.3 g/dL 6.0 - 8.0 g/dL [facility] Sodium [Moles/Vol] 138 mmol/L 135 - 145 mmol/L [facility] Urea nitrogen [Mass/Vol] 15 mg/dL 8 - 25 mg/dL [facility] Urea nitrogen/Creatinine [Mass ratio] 17.6 mg/mg 10.0 - 20.0 [facility] has implemented the eGFR calculation approach that does not have a coefficient for race that conforms to the NKF-ASN Task Force Recommendations. [facility] Iron Study with Ferritinon 0 11-30-2022 Ferritin [Mass/Vol] 133 ng/mL 13 - 150 ng/mL [facility] Iron [Mass/Vol] 62 ug[facility]dL [facility] binding capacity [Mass/Vol] 333 [facility] Iron saturation [Mass fraction] 19 % Low 20 - 50 % [facility] Lipid 1996 panelon 04-21-202 3 Cholesterol [Mass/Vol] 227 mg/dL High 100 - 199 mg/dL [facility] Comment on above: National Cholesterol Education Program Guidelines: Cholesterol Desirable: <200 mg/dL Borderline High: 200-239 mg/dL High: greater than or equal to 240 mg/dL Cholesterol in HDL [Mass/Vol] 58 mg/dL 40 - 59 mg/dL [facility] Comment on above: National Cholesterol Education Program Guidelines: HDL Cholesterol Low: <40 mg/dL Near Optimal: 40-59 mg/dL High: greater than or equal to 60 mg/dL Cholesterol in LDL [Mass/Vol] 144 mg/dL High 10 - 130 mg/dL [facility] Comment on above: National Cholesterol Education Program Guidelines: LDL Cholesterol Optimal: <100 mg/dL Near Optimal/above Optimal: 100-129 mg/dL Borderline High: 130-159 mg/dL High: 160-189 mg/dL Very High: greater than or equal to 190 mg/dL Cholesterol non HDL [Mass/Vol] 169 mg/dL [facility] Comment on above: National Cholesterol Education Program Guidelines: NON HDL Cholesterol Desirable: <130 mg/dL Borderline High: 130-159 mg/dL High: 160-189 mg/dL Very High: > or = 190 mg/dL Cholesterol.total/Chol esterol in HDL [Mass ratio] 3.9 {ratio} ratio [facility] Comment on above: Female Cholesterol/H DL Ratio: Average risk: 4.4 1/2 average risk: 3.3 2 x average risk: 7.1 Triglyceride [Mass/Vol] 126 mg/dL 30 - 150 mg/dL [facility] Comment on above: National Cholesterol Education Program Guidelines: Triglyceride Normal: <150 mg/dL Borderline High: 150-199 mg/dL High: 200-499 mg/dL Very High: greater than or equal to 500 mg/dL No Panel Informationon 11-30 Interpretation and review of laboratory results Abnormal [facility] Interpretation and review of laboratory results Normal [facility] T4, Freeon 11-30-2022 Free T4 [Mass/Vol] 0.8 ng/dL 0.7 - 1.7 ng/dL [facility] TSH DL <= 0.005 mIU/L Qnon 0 11-30-2022 TSH Qn 2.60 m[IU]/L [facility] Vaginitis DNA ProbesOrdered By: Valeri Patel on 07-14-2022 Nataliia sp DNA Probe+sig amp Ql (Vag fld) Negative Negative [facility] G. vaginalis DNA Probe+sig amp Ql (Vag fld) Negative Negative [facility] Interpretation and review of laboratory results Normal [facility] T. vaginalis DNA Probe+sig amp Ql (Vag fld) Negative Negative [facility] POC Urinalysis Dipstick, Aut oOrdered By: Radha Haskins on 07-13-2022 Bilirubin Ql (U) Negative Negative [facility] Glucose Ql (U) Negative Normal, Negative mg/dL [facility] Hemoglobin Ql (U) Trace-lysed Abnormal Negative [facility] alth Interpretation and review of laboratory results Abnormal [facility] Ketones Ql (U) Negative Negative mg/dL [facility] Leukocyte esterase Test strip Ql (U) Negative Negative [facility] Nitrite Ql (U) Negative Negative [facility] pH (U) 5.5 [pH] 5.0 - 7.0 [facility] Protein Ql (U) Negative Negative mg/dL [facility] Specific gravity (U) [Rel density] 1.025 1.005 - 1.025 [facility] Urobilinogen Qn (U) 0.2 mg/dL <2.0, 0. 2, Normal, Negative, 1.0, 2.0, <1.0 [facility] Bacteria identified Aer cx N om (Unsp spec)Ordered By: Cathy Fournier on 04-15-2022 [facility] Urine Aerobic CultureOrdered By: Cathy Fournier on 04-15-2022 Bacteria identified Aer cx Nom (Unsp spec) < 10,000 CFU/mL of normal urogenital microbiota [facility] Urinalysis with microscopicO rdered By: Tawana Howe on 04-13-2022 Bacteria Auto Ql (U) None Seen None Se en /hpf [facility] Bilirubin Ql (U) Negative Negative [facility] Clarity Refractometry automated (U) Clear Clear [facility] Color (U) Yellow Colorless, Yellow [facility] Epithelial cells.squamous Auto (Urine sed) [#/Area] 6 High [facility] Glucose Auto test strip (U) [Mass/Vol] Negative Negative mg/dL [facility] Hemoglobin Auto test strip Ql (U) Small Abnormal Negative [facility] Interpretation and review of laboratory results Abnormal [facility] Ketones (U) [Mass/Vol] Negative Negat haylie mg/dL [facility] Leukocyte esterase Auto test strip Ql (U) Negative Negative [facility] h Mucus Auto (Urine sed) [#/Area] Rare None Seen, Rare /lpf [facility] Nitrite Auto test strip Ql (U) Negative Negative [facility] pH (U) 6.0 [pH] 5 - 7 [facility] Protein (U) [Mass/Vol] Negative Negat haylie mg/dL [facility] RBC Auto (Urine sed) [#/Area] 8 High [facility] Specific gravity (U) [Rel density] 1.031 High 1.005 - 1.025 [facility] Urobilinogen (U) [Mass/Vol] mg/dL NINF - 2.0 mg/dL [facility] WBC Auto (Urine sed) [#/Area] 1 [facility] Microscopic examination is performed on all urinalysis samples and only positive findings are reported. The test for blood on the chemical analytic portion of urinalysis may also be positive due to hemoglobinuria and myoglobinuria and if red blood cells are present they are quantified by microscopic examination. [facility] Vaginitis DNA ProbesOrdered By: Guillermina Lopez on 04-13-2022 Nataliia sp DNA Probe+sig amp Ql (Vag fld) Negative Negative [facility] G. vaginalis DNA Probe+sig amp Ql (Vag fld) Negative Negative [facility] Interpretation and review of laboratory results Normal [facility] T. vaginalis DNA Probe+sig amp Ql (Vag fld) Negative Negative [facility] Urinalysis macro (dipstick) panel (U)Ordered By: Lesetr Ardon on 11-14-2021 Bilirubin Ql (U) Negative Negative [facility] Glucose Ql (U) Negative Normal, Negative mg/dL [facility] Hemoglobin Ql (U) Trace-intact Abnormal Negative [facility] ealth Interpretation and review of laboratory results Abnormal [facility] Ketones Ql (U) Negative Negative mg/dL [facility] Leukocyte esterase Test strip Ql (U) Negative Negative [facility] Nitrite Ql (U) Negative Negative [facility] pH (U) 7.0 [pH] [facility] Protein Ql (U) Negative Negative mg/dL [facility] Specific gravity (U) [Rel density] 1.020 [facility] Urobilinogen Qn (U) 0.2 mg/dL <2.0, 0. 2, Normal, Negative, 1.0, 2.0, <1.0 [facility] COVID-19, MOLECULARon 2021 SARS-CoV-2 (COVID-19) RNA MANAS+probe Ql (Unsp spec) Not detected Normal Not Detected [facility] Comment on above: Result Comment: This test was performed under the FDA's Emergency Use Authorization (EUA). Testing was performed using the Tamica SARS-CoV-2 RT-PCR assay on the Ted Tamica 6800 System. This test has not been approved for use in asymptomatic patients and its performance in this patient population has not been evaluated. Negative results do not rule out the presence of SARS-CoV-2/COVID-19. Fact sheets for this EUA can be found at the following links: For Healthcare Providers: https://www.fda.gov/media/491375/download For Patients: https://www.fda.gov/media/659650/download Performed By: #### L [id number] #### [facility] [address] [place] [address] Richard Knutson M.D. [id number] COVID-19, MOLECULARon 2020 SARS-CoV-2 (COVID-19) RNA MANAS+probe Ql (Unsp spec) Not detected Normal Not Detected [facility] Comment on above: Result Comment: This test was performed under the FDA's Emergency Use Authorization (EUA). Testing was performed using the Tamica SARS-CoV-2 RT-PCR assay on the Ted Tamica 6800 System. This test has not been approved for use in asymptomatic patients and its performance in this patient population has not been evaluated. Negative results do not rule out the presence of SARS-CoV-2/COVID-19. Fact sheets for this EUA can be found at the following links: For Healthcare Providers: https://www.fda.gov/media/980922/download For Patients: https://www.fda.gov/media/123335/download Performed By: #### L [id number] #### [facility] [address] [place] [address] Richard Knutson M.D. [id number] COVID-19, MolecularOrdered B y: Madisyn Shankar on 05-08-2021 SARS-CoV-2 (COVID-19) RNA MANAS+probe Ql (Resp) Not detected Not Detected [facility] Comment on above: This test was perfor med under the FDA's Emergency Use Authorization (EUA). Testing was performed using the Tamica SARS-CoV-2 RT-PCR assay on the Ted Tamica 6800 System. This test has not been approved for use in asymptomatic patients and its performance in this patient population has not been evaluated. Negative results do not rule out the presence of SARS-CoV-2/COVID-19. Fact sheets for this EUA can be found at the following links: For Healthcare Providers: https://www.fda.gov/media/399598/download For Patients: https://www.fda.gov/media/808936/download SARS-CoV-2 (COVID-19) RNA NA A+probe Ql (Resp)Ordered By: Madisyn Shankar on 05-08-2021 Interpretation and review of laboratory results Normal [facility] Comprehensive metabolic 2000 panelOrdered By: Marika Ortega on 03-02-2021 Albumin [Mass/Vol] 3.3 g/dL 3.2 - 5.2 g/dL [facility] ALP [Catalytic activity/Vol] 81 U/L 40 - 150 U/L [facility] ALT [Catalytic activity/Vol] 27 U/L 14 - 65 U/L [facility] Anion gap [Moles/Vol] 9 mmol/L Low 10 - 2 0 mmol/L [facility] AST [Catalytic activity/Vol] 17 U/L 0 - 45 U/L [facility] Bilirubin [Mass/Vol] 0.4 mg/dL 0.0 - 1 .3 mg/dL [facility] Calcium [Mass/Vol] 8.9 mg/dL 8.4 - 10. 2 mg/dL [facility] Chloride [Moles/Vol] 105 mmol/L 98 - 10 8 mmol/L [facility] Creatinine [Mass/Vol] 0.87 mg/dL 0.40 - 1.[address] [facility] GFR/1.73 sq M.predicted CKD-EPI (S/P/Bld) [Vol rate/Area] 80 >=60 mL/min/1.73 m2 [facility] Glucose [Mass/Vol] 86 mg/dL 65 - 99 mg/dL [facility] HCO3 [Moles/Vol] 27 mmol/L 21 - 32 mmol/L [facility] Interpretation and review of laboratory results Abnormal [facility] Potassium [Moles/Vol] 3.3 mmol/L Low 3.5 - 5.1 mmol/L [facility] Protein [Mass/Vol] 7.7 g/dL 6.0 - 8.0 g/dL [facility] Sodium [Moles/Vol] 138 mmol/L 135 - 145 mmol/L [facility] Urea nitrogen [Mass/Vol] 16 mg/dL 8 - 25 mg/dL [facility] Urea nitrogen/Creatinine [Mass ratio] 18.4 mg/mg [facility] The eGFR should be used for monitoring renal function only and not for medication dosing. [facility] ECG 12-LEADOrdered By: Marika Ortega on 03-02-2021 Atrial Rate [facility] P [place] [facility] P-R Interval [facility] Q-T Interval [facility] Q-T Interval (corrected) [facility] QRS Duration [facility] QTC Calculation (Bezet) [facility] R [place] [facility] T [place] [facility] Ventricular Rate [facility] th [facility] NT PRO BNPOrdered By: Marika Ortega on 03-02-2021 Natriuretic peptide.B prohormone N-Terminal [Mass/Vol] 36 pg/mL 0 - 300 pg/mL [facility] Natriuretic peptide.B prohor marina N-Terminal [Mass/Vol]Ordered By: Marika Ortega on 03-02-2021 Pride Study Cut-offs Rule In: < /= 50 Years >450 pg/mL 51 Years - 75 Years >900 pg/mL 76 Years - 99 Years >1800 pg/mL Rule Out: All patients <300 pg/mL [facility] No Panel InformationOrdered By: Marika Ortega on 03-02-2021 Interpretation and review of laboratory results Normal [facility] T4, FreeOrdered By: Marika Todd [email or web address] on 03-02-2021 Free T4 [Mass/Vol] 1.0 ng/dL 0.7 - 1.7 ng/dL [facility] TSH DL <= 0.005 mIU/L QnOrde red By: Marika Ortega on 03-02-2021 TSH Qn 4.11 m[IU]/L [facility] CHLAMYDIA/GONORRHOEAE AMPLIF IED RNAOrdered By: Marika Ortega on 01-24-2021 C. trachomatis rRNA MANAS+probe Ql (Cvx) Negative Negative [facility] Interpretation and review of laboratory results Normal [facility] N. gonorrhoeae rRNA MANAS+probe Ql (Cvx) Negative Negative [facility] Trichomonas vaginalis Amplif ied RNAOrdered By: Marika Ortega on 01-24-2021 Interpretation and review of laboratory results Normal [facility] T. vaginalis rRNA MANAS+probe Ql (Cvx) Negative Negative [facility] XR KNEE LEFT 2 VIEWS ([address])on 10-29-2020 No evidence for acute fracture or malalignment. Workstation ID: [id number] [facility] EXAMINATION: XR KNEE LEFT 2 VIEWS (STANDARD) 10/29/2020 3:12 pm HISTORY: ORDERING SYSTEM PROVIDED HISTORY: Patient was walking and felt sharp pain in left knee which then gave out. Now complains of pain left medial knee., TECHNOLOGIST PROVIDED HISTORY: Illness/Other Reason for exam: sharp stabbing pain in left knee, no known injury Cancer History: n Surgery, RadiationHistory: n Encounter Type: Initial Additional signs and symptoms: no ORDERING SYSTEM PROVIDED DIAGNOSIS CODES: COMPARISON: Left knee x-rays of 03/17/2020 FINDINGS: No acute fracture is seen. Alignment of the osseous structures is normal. The joint spaces are preserved. The soft tissues are unremarkable. No significant joint effusion is seen. [facility] Interface, Rad In Fuji Speechq - 10/29/2020 3:22 PM EDT EXAMINATION: XR KNEE LEFT 2 VIEWS (STANDARD) 10/29/2020 3:12 pm HISTORY: ORDERING SYSTEM PROVIDED HISTORY: Patient was walking and felt sharp pain in left knee which then gave out. Now complains of pain left medial knee., TECHNOLOGIST PROVIDED HISTORY: Illness/Other Reason for exam: sharp stabbing pain in left knee, no known injury Cancer History: n Surgery, RadiationHistory: n Encounter Type: Initial Additional signs and symptoms: no ORDERING SYSTEM PROVIDED DIAGNOSIS CODES: COMPARISON: Left knee x-rays of 03/17/2020 FINDINGS: No acute fracture is seen. Alignment of the osseous structures is normal. The joint spaces are preserved. The soft tissues are unremarkable. No significant joint effusion is seen. IMPRESSION: No evidence for acute fracture or malalignment. Workstation ID: [id number] [facility] Stool/GI PCR Panelon 020 Adenovirus 40+41 DNA MANAS+non-probe Ql (Stl) Not Detected Not Detected [facility] Astrovirus subtypes 1-8 RNA MANAS+non-probe Ql (Stl) Not Detected Not Detected [facility] C. cayetanensis DNA MANAS+non-probe Ql (Stl) Not Detected Not Detected [facility] C. coli+jejuni+upsaliensi s DNA MANAS+non-probe Ql (Stl) Not Detected Not Detected [facility] C. difficile toxin A+B tcdA+tcdB genes MANAS+non-probe Ql (Stl) Not Detected Not Detected [facility] Cryptosporidium sp DNA MANAS+non-probe Ql (Stl) Not Detected Not Detected [facility] E. coli enteroaggregative Chelsie plasmid aggR+aatA genes MANAS+non-probe Ql (Stl) Not Detected Not Detected [facility] E. coli enteropathogenic eae gene MANAS+non-probe Ql (Stl) Not Detected Not Detected [facility] E. coli enterotoxigenic ltA+st1a+st1b genes MANAS+non-probe Ql (Stl) Not Detected Not Detected [facility] E. coli stx1+stx2 genes MANAS+non-probe Ql (Stl) Not Detected Not Detected [facility] E. histolytica DNA MANAS+non-probe Ql (Stl) Not Detected Not Detected [facility] G. lamblia DNA MANAS+non-probe Ql (Stl) Not Detected Not Detected [facility] Interpretation and review of laboratory results Normal [facility] Norovirus genogroup I+II RNA MANAS+non-probe Ql (Stl) Not Detected Not Detected [facility] P. shigelloides DNA MANAS+non-probe Ql (Stl) Not Detected Not Detected [facility] Rotavirus A RNA MANAS+non-probe Ql (Stl) Not Detected Not Detected [facility] S. enterica+bongori DNA MANAS+non-probe Ql (Stl) Not Detected Not Detected [facility] Sapovirus genogroups I+II+IV+V RNA MANAS+non-probe Ql (Stl) Not Detected Not Detected [facility] Shigella species+EIEC invasion plasmid antigen H ipaH gene MANAS+non-probe Ql (Stl) Not Detected Not Detected [facility] V. cholerae DNA MANAS+non-probe Ql (Stl) Not Detected Not Detected [facility] V. cholerae+parahaemolyti cus+vulnificus DNA MANAS+non-probe Ql (Stl) Not Detected Not Detected [facility] Y. enterocolitica DNA MANAS+non-probe Ql (Stl) Not Detected Not Detected [facility] Results of PCR testing for stool pathogens must be taken into clinical context when making treatment decisions. Most gastrointestinal infections due to common bacterial and viral causes are self-limited in nature and do not require antimicrobial therapy. The use of antimicrobial therapy must be carefully weighed against unintended and potentially harmful consequences. The role of antimicrobial therapy depends on the implicated pathogen. In general, antimicrobial agents are only used to treat parasitic infections as well as select bacterial infections. [facility] XR KNEE LEFT 2 VIEWS ([address] RD)on 03-17-2020 1. No acute fracture or osseous abnormality identified as described above. 2. Some stable peripheral soft tissue varicose veins suspected. Correlate clinically. [employer] Workstation ID: [id number] [facility] EXAMINATION: TWO VIEWS LEFT KNEE, 03/17/2020 COMPARISON: Left knee, 10/31/2018. HISTORY: Injury/Trauma or Illness?:Illness/Oth er How long have you had these symptoms (acute/chronic)?:Acu teknee pain Injury/Trauma or Illness?:Illness/Oth er How long have you had these symptoms (acute/chronic)?:Acu te Reason for exam?:Pt was seen at [facility] on 03/10/20 with Dx of cellulitis to right leg. Pt states was putting more weight on left leg due to this. C/o right knee pain. More pain with weightbearing and movement. History of cancer?:n Surgeries, chemotherapy, or radiation?:n S86.912A Strain of left knee, initial encounterknee pain FINDINGS: No acute fracture, subluxation or dislocation. If there is persistent clinical concern for the possibility of a subtle or nondisplaced acute fracture, a repeat radiograph may be helpful in one or two week period of time. No joint effusion. Some superficial venous collateralization suspected suggestive of some varicose veins is a stable finding. [facility] Interface, Rad In Fuji Speechq - 03/17/2020 6:05 PM EDT EXAMINATION: TWO VIEWS LEFT KNEE, 03/17/2020 COMPARISON: Left knee, 10/31/2018. HISTORY: Injury/Trauma or Illness?:Illness/Oth er How long have you had these symptoms (acute/chronic)?:Acu teknee pain Injury/Trauma or Illness?:Illness/Oth er How long have you had these symptoms (acute/chronic)?:Acu te Reason for exam?:Pt was seen at [facility] on 03/10/20 with Dx of cellulitis to right leg. Pt states was putting more weight on left leg due to this. C/o right knee pain. More pain with weightbearing and movement. History of cancer?:n Surgeries, chemotherapy, or radiation?:n S86.911D Strain of left knee, initial encounterknee pain FINDINGS: No acute fracture, subluxation or dislocation. If there is persistent clinical concern for the possibility of a subtle or nondisplaced acute fracture, a repeat radiograph may be helpful in one or two week period of time. No joint effusion. Some superficial venous collateralization suspected suggestive of some varicose veins is a stable finding. IMPRESSION: 1. No acute fracture or osseous abnormality identified as described above. 2. Some stable peripheral soft tissue varicose veins suspected. Correlate clinically. [employer] Workstation ID: [id number] [facility] POC Basic Metabolic Panelon 03-10-2020 Calcium.ionized (Bld) [Mass/Vol] 4.6 mg/dL 4.5 - 5.3 mg/dL [facility] Chloride [Moles/Vol] 107 mmol/L 98 - 10 8 mmol/L [facility] CO2 [Moles/Vol] 23 mmol/L 21 - 32 mmol/L [facility] Creatinine [Mass/Vol] 0.72 mg/dL 0.40 - 1.[address] [facility] GFR/1.73 sq M.predicted MDRD (S/P/Bld) [Vol rate/Area] 101 mL/min/{1.73_m2} >=60 mL/min/1.73 m2 [facility] Glucose [Mass/Vol] 85 mg/dL 65 - 99 mg/dL [facility] Interpretation and review of laboratory results Normal [facility] Potassium [Moles/Vol] 3.9 mmol/L 3.5 - 5.1 mmol/L [facility] Sodium [Moles/Vol] 141 mmol/L 135 - 145 mmol/L [facility] Urea nitrogen [Mass/Vol] 13 mg/dL 8 - 25 mg/dL [facility] POC CBC and Differentialon 0 03-10-2020 Erythrocyte distribution width (RBC) [Entitic vol] 13.8 % 11.6 - 14.8 % [facility] Hematocrit (Bld) [Volume fraction] 41.0 % 36 - 46 % [facility] Hemoglobin (Bld) [Mass/Vol] 13.9 g/dL 12 - 16 g/dL [facility] Lymphocytes (Bld) [#/Vol] 2.1 10*3/uL [facility] Lymphocytes/100 WBC (Bld) 34.1 % [facility] MCH (RBC) [Entitic mass] 29.8 pg 26 - 34 pg [facility] MCHC (RBC) [Mass/Vol] 33.9 g/dL 31 - 37 g/dL [facility] MCV (RBC) [Entitic vol] 88.0 fL 80 - 100 fL [facility] Mixed 7.8 % [facility] Mixed Abs 0.5 K/mcl [facility] Neutrophil Abs 3.6 [facility] Neutrophils/100 WBC (Bld) 58.1 % [facility] Platelet mean volume (Bld) [Entitic vol] 10.4 fL 9.4 - 12.4 fL [facility] Platelets (Bld) [#/Vol] 268 10*3/uL [facility] RBC (Bld) [#/Vol] 4.66 10*6/uL [facility] WBC (Bld) [#/Vol] 6.20 10*3/uL [facility]alth POC D-dimeron 03-10-2020 Fibrin D-dimer DDU (PPP) [Mass/Vol] 279 <350 ng/mL DDU [facility] Interpretation and review of laboratory results Normal [facility] A D-Dimer concentration of <350 ng/mL DDU is considered a low probability for pulmonary embolism (PE) and deep venous thrombosis (DVT). Results of this test should always be interpreted in conjunction with the patient's medical history, clinical presentation, and other findings. Clinical diagnosis should not be based on the results of the D-dimer alone. The above D-dimer cutoff pertains to its use for the exclusion of DVT or PE. The range associated with other clinical conditions (e.g. sepsis) has not been validated for this method. 90% of normal patients are less than 400 ng/ml. [facility] POC PT/INRon 03-10-2020 INR Coag (Bld) [Relative time] 1.0 {INR} [facility] Interpretation and review of laboratory results Normal [facility] XR Elbow Left 3+ Views ([place] dard)on 09-21-2019 FINDINGS/ No evidence of acute fracture or dislocation. Joint spaces appear maintained. No sizable joint effusion. Overlying soft tissues are grossly unremarkable. Workstation ID: [id number] [facility] EXAMINATION: XR ELBOW LEFT 3+ VIEWS (STANDARD) HISTORY: ORDERING SYSTEM PROVIDED HISTORY: injury, struck on object, TECHNOLOGIST PROVIDED HISTORY: Illness/Other Reason for exam: left elbow pain, anterior/posterior and lateral pain, no injury Cancer History: n Surgery, RadiationHistory: n Encounter Type: Initial Additional signs and symptoms: no ORDERING SYSTEM PROVIDED DIAGNOSIS CODES: COMPARISON: No relevant prior study available at time of interpretation. [facility], Rad In Fuji Speechq - 09/21/2019 9:35 PM EST EXAMINATION: XR ELBOW LEFT 3+ VIEWS (STANDARD) HISTORY: ORDERING SYSTEM PROVIDED HISTORY: injury, struck on object, TECHNOLOGIST PROVIDED HISTORY: Illness/Other Reason for exam: left elbow pain, anterior/posterior and lateral pain, no injury Cancer History: n Surgery, RadiationHistory: n Encounter Type: Initial Additional signs and symptoms: no ORDERING SYSTEM PROVIDED DIAGNOSIS CODES: COMPARISON: No relevant prior study available at time of interpretation. IMPRESSION: FINDINGS/ No evidence of acute fracture or dislocation. Joint spaces appear maintained. No sizable joint effusion. Overlying soft tissues are grossly unremarkable. Workstation ID: [id number] [facility] CBCon 07-16-2019 ABSOLUTE BAS 0.1 10*3/uL Normal 0.0-0.2 [facility] ABSOLUTE EOS 0.30 10*3/uL Normal 0.0-0.7 [facility] ABSOLUTE NEUTROPHIL COUNT 3.7 10*3/uL Normal 1.4-6.5 [facility] Basophils/100 WBC (Bld) 0.8 % Normal 0.0-2.0 [facility] DTYPE AUTO DIFF Normal [facility] Eosinophils/100 WBC (Bld) 4.0 % Normal 0.0-11.0 [facility] Lymphocytes (Bld) [#/Vol] 2.10 10*3/uL Normal 1.2-3.4 [facility] Lymphocytes/100 WBC (Bld) 32.0 % Normal 20.0-55.0 [facility] Monocytes (Bld) [#/Vol] 0.4 10*3/uL Normal 0.0-0.7 [facility] Monocytes/100 WBC (Bld) 6.3 % Normal 0.0-10.0 [facility] Neutrophils/100 WBC (Bld) 56.9 % Normal 37.0-75.0 [facility] Erythrocyte distribution width (RBC) [Ratio] 13.1 % Normal 11.5-14.5 [facility] Hematocrit (Bld) [Volume fraction] 39.2 % Normal 36.0-48.0 [facility] Hemoglobin (Bld) [Mass/Vol] 13.2 g/dL Normal 12.0-16.0 [facility] MCH (RBC) [Entitic mass] 29.5 pg Normal 26.0-35.0 [facility] MCHC (RBC) [Mass/Vol] 33.7 g/dL Normal 27.0-37.0 [facility] MCV (RBC) [Entitic vol] 87.6 fL Normal 80.0-100.0 [facility] Platelet mean volume (Bld) [Entitic vol] 7.7 fL Normal 7.4-11.0 [facility] Platelets (Bld) [#/Vol] 226 10*3/uL Normal 130.0-400.0 [facility] RBC (Bld) [#/Vol] 4.47 10*6/uL Normal 4.0-5.4 [facility] WBC (Bld) [#/Vol] 6.6 10*3/uL Normal 3.6-11.0 [facility] CBC, EDIF, PLATELETon 2018 ABSOLUTE BASOPHIL COUNT 0.1 10*3/uL 0 - 0.2 10*3/uL [facility] Basophils/100 WBC (Bld) 0.8 % 0 - 2 % [facility] Differential cell count method Nom (Bld) AUTO DIFF % [facility] Eosinophils (Bld) [#/Vol] 0.30 10*3/uL 0 - 0.7 10*3/uL [facility] Eosinophils/100 WBC (Bld) 4.0 % 0 - 11 % [facility] Erythrocyte distribution width (RBC) [Ratio] 13.1 % 11.5 - 14.5 % [facility] Hematocrit (Bld) [Volume fraction] 39.2 % 36 - 48 % [facility] Hemoglobin (Bld) [Mass/Vol] 13.2 g/dL [facility] Lymphocytes (Bld) [#/Vol] 2.10 10*3/uL 1.2 - 3.4 10*3/uL [facility] Lymphocytes/100 WBC (Bld) 32.0 % 20 - 55 % [facility] MCH (RBC) [Entitic mass] 29.5 pg 26 - 35 PG [facility] MCHC (RBC) [Mass/Vol] 33.7 g/dL [facility] MCV (RBC) [Entitic vol] 87.6 fL [facility] Monocytes (Bld) [#/Vol] 0.4 10*3/uL 0 - 0.7 10*3/uL [facility] Monocytes/100 WBC (Bld) 6.3 % 0 - 10 % [facility] Neutrophils (Bld) [#/Vol] 3.7 10*3/uL 1.4 - 6.5 10*3/uL [facility] Neutrophils/100 WBC (Bld) 56.9 % 37 - 75 % [facility] Platelet mean volume (Bld) [Entitic vol] 7.7 fL [facility] Platelets (Bld) [#/Vol] 226 10*3/uL 130 - 400 10*3/uL [facility] RBC (Bld) [#/Vol] 4.47 10*6/uL 4 - 5.4 10*6/uL [facility] WBC (Bld) [#/Vol] 6.6 10*3/uL 3.6 - 11 10*3/uL [facility] CMP FASTINGon 07-16-2019 A:G RATIO 1.1 RATIO Low 1.3-2.2 [facility] Albumin [Mass/Vol] 3.6 G/dl Normal 3.5-5.0 [facility] ALP [Catalytic activity/Vol] 62 U/L Normal 38-126 [facility] ALT [Catalytic activity/Vol] 21 U/L Normal 9-52 [facility] AST [Catalytic activity/Vol] 23 U/L Normal 14-36 [facility] Bilirubin [Mass/Vol] 0.2 mg/dL Normal 0.2-1.3 [facility] Calcium [Mass/Vol] 8.8 mg/dL Normal 8.4-10.2 [facility] Chloride [Moles/Vol] 108 mmol/L High 98-107 [facility] Comment on above: Result Comment: Sondra herrera note: Triglyceride levels of 600mg/dL or higher may positively bias chloride results by approximately 2.1 mmol CO2 [Moles/Vol] 27 mmol/L Normal 22-30 [facility] Creatinine [Mass/Vol] 0.73 mg/dL Normal 0.7-1.2 [facility] EST. GFR, >60 Normal [facility] EST. GFR,Non >60 Normal [facility] GFR/1.73 sq M predicted among non-blacks MDRD (S/P/Bld) [Vol rate/Area] Average GFR for 40-49 years old = 99. Normal [facility] Comment on above: Result Comment: Triage Registered Nurse bk Kidney disease, GFR = <60. Kidney failure, GFR = <15. The GFR estimate is not adjusted for extreme body surface area or acute process, nor has it been validated for women or ethnic groups other than and . Glucose [Mass/Vol] 95 mg/dL Normal 70-100 [facility] Comment on above: Result Comment: NORMAL <100 mg/dL PREDIABETES 101-126 mg/dL DIABETES 126 mg/dL or higher Potassium [Moles/Vol] 4.0 mmol/L Normal 3.5-5.1 [facility] Protein [Mass/Vol] 7.0 g/dL Normal 6.3-8.2 [facility] Sodium [Moles/Vol] 140 mmol/L Normal 137-145 [facility] Urea nitrogen [Mass/Vol] 18 mg/dL Normal 7-20 [facility] COMPREHENSIVE METABOLIC PANE Bucky 07-16-2019 Albumin [Mass/Vol] 3.6 G/dl 3.5 - 5 G/dl [facility] Albumin/Globulin [Mass ratio] 1.1 {ratio} Low [facility] ALP [Catalytic activity/Vol] 62 U/L [facility] ALT [Catalytic activity/Vol] 21 U/L [facility] AST [Catalytic activity/Vol] 23 U/L [facility] Bilirubin [Mass/Vol] 0.2 mg/dL [facility] Calcium [Mass/Vol] 8.8 mg/dL [facility] Chloride [Moles/Vol] 108 mmol/L High [facility] [employer] Comment on above: Please note: Triglyc eride levels of 600mg/dL or higher may positively bias chloride results by approximately 2.1 mmol CO2 [Moles/Vol] 27 mmol/L [facility] Creatinine [Mass/Vol] 0.73 mg/dL [employer] GFR/1.73 sq M predicted among blacks MDRD (S/P/Bld) [Vol rate/Area] mL/min/{1.73_m2} ml/min/1.73s q.m [facility] [employer] GFR/1.73 sq M predicted among non-blacks MDRD (S/P/Bld) [Vol rate/Area] mL/min/{1.73_m2} ml/min/1.73s q.m [facility] GFR/1.73 sq M predicted among non-blacks MDRD (S/P/Bld) [Vol rate/Area] Average GFR for 40-49 years old = 99. [facility] Comment on above: Chronic Kidney disea se, GFR = <60. Kidney failure, GFR = <15. The GFR estimate is not adjusted for extreme body surface area or acute process, nor has it been validated for women or ethnic groups other than and . Glucose post fast [Mass/Vol] 95 mg/dL [facility] Comment on above: NORMAL <100 mg/dL PREDIABETES 101-126 mg/dL DIABETES 126 mg/dL or higher Interpretation and review of laboratory results Abnormal [facility] Potassium [Moles/Vol] 4.0 mmol/L [employer] Protein [Mass/Vol] 7.0 g/dL [facility] Sodium [Moles/Vol] 140 mmol/L [facility] Urea nitrogen [Mass/Vol] 18 mg/dL [facility] HCG QUALITATIVE, URINEon HCG ( test) Ql (U) Negative [facility] INFLUENZA A AND B, PCRon FLUBV Ag IA Ql (Unsp spec) Negative NEGATIVE [facility] Comment on above: TESTING PERFORMED BY [facility] INFLUENZA A Negative NEGATIVE [facility] Otheron 07-16-2019 Interpretation and review of laboratory results Abnormal [facility] RAPID FLU Aon 07-16-2019 INFLUENZA A Negative Normal NEGATIVE [facility] INFLUENZA B Negative Normal NEGATIVE [facility] Comment on above: Result Comment: TEST ING PERFORMED BY MANAS TSHon 07-16-2019 TSH Qn 1.830 uIU/ML Normal 0.46-4.68 [facility] TSH Qn 1.830 m[IU]/L [facility] URINALYSIS, MACROon 07-16-20 19 Bilirubin Ql (U) SMALL Abnormal NEGATIVE [facility] Clarity (U) CLEAR CLEAR [facility] Color (U) YELLOW YELLOW [facility] Glucose Test strip (U) [Mass/Vol] Negative NEGATIVE mg/dl [facility] Hemoglobin Ql (U) TRACE Abnormal NEGATIVE [facility] Ketones (U) [Mass/Vol] Negative NEGAT [place] mg/dl [facility] Leukocyte esterase Test strip Ql (U) Negative NEGATIVE [facility] Nitrite Ql (U) Negative NEGATIVE [facility] pH (U) 6.5 [pH] [facility] Protein Ql (U) TRACE Abnormal NEGATIVE mg/dl [facility] Specific gravity (U) [Rel density] 1.015 [facility] Urobilinogen (U) [Mass/Vol] 0.2 [facility] URINE HCG QUALon 07-16-2019 Beta HCG ( test) Ql (U) Negative Normal [facility] URINE MACROSCOPICon 07-16-20 19 Bilirubin Ql (U) SMALL Abnormal NEGATIVE [facility] Clarity (U) CLEAR Normal CLEAR [facility] Color (U) YELLOW Normal YELLOW [facility] Glucose Ql (U) Negative Normal NEGATIVE [facility] pH (U) 6.5 [pH] Normal 5.0-7.0 [facility] Protein (U) [Mass/Vol] TRACE Abnormal NEGATIVE [facility] URINE HEMOGLOBIN TRACE Abnormal NEGATIVE [facility] URINE KETONE Negative Normal NEGATIVE [facility] URINE LEUKOTEST Negative Normal NEGATIVE [facility] URINE NITRATES Negative Normal NEGATIVE [facility] URINE SPEC GRAVITY 1.015 Normal 1.010-1.025 [facility] Urobilinogen Qn (U) 0.2 {Zamzam'U}/dL Normal 0.2-1.0 [facility] URINE MICROSCOPICon 07-16-20 19 Bacteria LM.HPF (Urine sed) [#/Area] TRACE Abnormal NEGATIVE [facility] Casts LM.LPF (Urine sed) [#/Area] NONE Normal NONE [facility] CRYSTAL NONE Normal NONE [facility] Epithelial cells LM.HPF (Urine sed) [#/Area] TOO NUMEROUS TO COUNT Normal [facility] Mucus Ql (Urine sed) Negative Normal NEGATIVE [facility] RBC (U) [#/Vol] 1 TO 5 Normal NEGATIVE [facility] URINE COMMENT CULTURE CRITERIA NOT MET, NO CULTURE PERFORMED. Normal [facility] WBC (U) [#/Vol] Negative Normal NEGATIVE [facility] Bacteria LM.HPF (Urine sed) [#/Area] TRACE Abnormal NEGATIVE [facility] Casts LM.LPF (Urine sed) [#/Area] NONE NONE /LPF [facility] Crystals LM Nom (Urine sed) NONE NONE [facility] Epithelial cells LM Ql (Urine sed) TOO NUMEROUS TO COUNT /HPF [facility] Mucus Ql (Urine sed) Negative NEGATIVE [facility] RBC LM.HPF (Urine sed) [#/Area] 1 TO 5 NEGATIVE /HPF [facility] Urine sediment comments LM Francisco (Urine sed) CULTURE CRITERIA NOT MET, NO CULTURE PERFORMED. [facility] WBC LM.HPF (Urine sed) [#/Area] Negative NEGATIVE /HPF [facility] COLONOSCOPYon 06-26-2019 [facility] Gastroenterology Patient Name: Neda Lawrence Procedure Date: 06/26/2019 12:27 PM Date of : 1975 Admit Type: Outpatient Age: 43 Room: Procedure Room #1 Gender: Female Note Status: Finalized Attending MD: Ye Doty DO Instrument Name: [id number] Procedure: Colonoscopy Indications: Rectal bleeding Providers: Ye Doty DO Referring MD: Self Self, MD Complications: No immediate complications. Procedure: After I obtained informed consent, the scope was passed under direct vision. Throughout the procedure, the patient's blood pressure, pulse, and oxygen saturations were monitored continuously. CO2 was used. The Colonoscope was introduced through the anus and advanced to the cecum, identified by the appendiceal orifice, ileocecal valve and palpation. The colonoscopy was performed without difficulty. The patient tolerated the procedure well. Findings: Non-bleeding internal hemorrhoids were found. The hemorrhoids were small. The exam was otherwise without abnormality. Impression: - Non-bleeding internal hemorrhoids. - The examination was otherwise normal. - No specimens collected. Recommendation: - Repeat colonoscopy in 10 years for screening purposes. Procedure Code(s): --- Professional --- 54357, Colonoscopy, flexible; diagnostic, including collection of specimen(s) by brushing or washing, when performed (separate procedure) Diagnosis Code(s): --- Professional --- K64.8, Other hemorrhoids K62.5, Hemorrhage of anus and rectum CPT copyright 2018 [employer]. All rights reserved. The codes documented in this report are preliminary and upon information assurance review may be revised to meet current compliance requirements. DO Ye Novak DO 06/26/2019 1:13:45 PM This report has been signed electronically. Number of Addenda: 0 Note Initiated On: 06/26/2019 12:27 PM [employer] [facility] US SOFT TISSUE NECK OR HEADo n 06-19-2019 Heterogeneous, multinodular, hypervascular thyroid gland. /[employer] Workstation ID: [id number] [facility] EXAMINATION: US SOFT TISSUE NECK OR HEAD HISTORY: ORDERING SYSTEM PROVIDED HISTORY: hypothyroidism, TECHNOLOGIST PROVIDED HISTORY: Illness/Other Reason for exam: Dysphagia, hypothyroid Cancer History: n Surgery, RadiationHistory: n Encounter Type: Initial Additional signs and symptoms: n ORDERING SYSTEM PROVIDED DIAGNOSIS CODES: E03.9 Hypothyroidism, unspecified type COMPARISON: None. TECHNIQUE: Thyroid ultrasound. FINDINGS: Normal-sized thyroid gland. Diffusely heterogeneous echotexture of multifocal nodularity. Right thyroid lobe measures 4.6 x 1.5 x 2.1 cm. Isthmus measures 0.6 cm. Left thyroid lobe measures 4.5 x 1.6 x 1.8 cm. Multiple nodules are seen throughout the thyroid gland. For example: 1 cm hypoechoic nodule at the left isthmus, 0.8 cm hypoechoic nodule at the mid right thyroid and additional 0.7 cm hypoechoic nodule at the mid right thyroid. [facility] Interface, Rad In [employer] - 06/19/2019 7:30 PM EST EXAMINATION: US SOFT TISSUE NECK OR HEAD HISTORY: ORDERING SYSTEM PROVIDED HISTORY: hypothyroidism, TECHNOLOGIST PROVIDED HISTORY: Illness/Other Reason for exam: Dysphagia, hypothyroid Cancer History: n Surgery, RadiationHistory: n Encounter Type: Initial Additional signs and symptoms: n ORDERING SYSTEM PROVIDED DIAGNOSIS CODES: E03.9 Hypothyroidism, unspecified type COMPARISON: None. TECHNIQUE: Thyroid ultrasound. FINDINGS: Normal-sized thyroid gland. Diffusely heterogeneous echotexture of multifocal nodularity. Right thyroid lobe measures 4.6 x 1.5 x 2.1 cm. Isthmus measures 0.6 cm. Left thyroid lobe measures 4.5 x 1.6 x 1.8 cm. Multiple nodules are seen throughout the thyroid gland. For example: 1 cm hypoechoic nodule at the left isthmus, 0.8 cm hypoechoic nodule at the mid right thyroid and additional 0.7 cm hypoechoic nodule at the mid right thyroid. IMPRESSION: Heterogeneous, multinodular, hypervascular thyroid gland. /formerly named [facility] Workstation ID: [id number] [facility] CBCon 05-13-2019 ABSOLUTE BAS 0.1 10*3/uL Normal 0.0-0.2 [facility] Comment on above: Performed By: #### A CBC, CMPF, LIPA2 #### Testing performed at [address] [address] ABSOLUTE EOS 0.30 10*3/uL Normal 0.0-0.7 [facility] [place] Comment on above: Performed By: #### A CBC, CMPF, LIPA2 #### Testing performed at [address] [address] ABSOLUTE NEUTROPHIL COUNT 4.6 10*3/uL Normal 1.4-6.5 [facility] Comment on above: Performed By: #### A CBC, CMPF, LIPA2 #### Testing performed at [address] [address] Basophils/100 WBC (Bld) 0.7 % Normal 0.0-2.0 [facility] Comment on above: Performed By: #### A CBC, CMPF, LIPA2 #### Testing performed at [address] [address] DTYPE AUTO DIFF Normal [facility] Comment on above: Performed By: #### A CBC, CMPF, LIPA2 #### Testing performed at [address] [place] [address] Eosinophils/100 WBC (Bld) 4.0 % Normal 0.0-11.0 [facility] Comment on above: Performed By: #### A CBC, CMPF, LIPA2 #### Testing performed at [address] [address] Lymphocytes (Bld) [#/Vol] 2.70 10*3/uL Normal 1.2-3.4 [facility] Comment on above: Performed By: #### A CBC, CMPF, LIPA2 #### Testing performed at [address] [address] Lymphocytes/100 WBC (Bld) 32.9 % Normal 20.0-55.0 [facility] Comment on above: Performed By: #### A CBC, CMPF, LIPA2 #### Testing performed at [address] [address] Monocytes (Bld) [#/Vol] 0.5 10*3/uL Normal 0.0-0.7 [facility] Comment on above: Performed By: #### A CBC, CMPF, LIPA2 #### Testing performed at [address] [address] Monocytes/100 WBC (Bld) 6.1 % Normal 0.0-10.0 [facility] Comment on above: Performed By: #### A CBC, CMPF, LIPA2 #### Testing performed at [address] [address] Neutrophils/100 WBC (Bld) 56.3 % Normal 37.0-75.0 [facility] Comment on above: Performed By: #### A CBC, CMPF, LIPA2 #### Testing performed at [address] [address] Erythrocyte distribution width (RBC) [Ratio] 13.2 % Normal 11.5-14.5 [facility] Comment on above: Performed By: #### A CBC, CMPF, LIPA2 #### Testing performed at [address] [address] Hematocrit (Bld) [Volume fraction] 40.2 % Normal 36.0-48.0 [facility] Comment on above: Performed By: #### A CBC, CMPF, LIPA2 #### Testing performed at [address] [address] Hemoglobin (Bld) [Mass/Vol] 13.6 g/dL Normal 12.0-16.0 [facility] Comment on above: Performed By: #### A CBC, CMPF, LIPA2 #### Testing performed at [address] [address] MCH (RBC) [Entitic mass] 29.6 pg Normal 26.0-35.0 [facility] Comment on above: Performed By: #### A CBC, CMPF, LIPA2 #### Testing performed at [address] [address] MCHC (RBC) [Mass/Vol] 33.7 g/dL Normal 27.0-37.0 [facility] Comment on above: Performed By: #### A CBC, CMPF, LIPA2 #### Testing performed at [address] [address] MCV (RBC) [Entitic vol] 88.0 fL Normal 80.0-100.0 [facility] Comment on above: Performed By: #### A CBC, CMPF, LIPA2 #### Testing performed at [address] [address] Platelet mean volume (Bld) [Entitic vol] 7.9 fL Normal 7.4-11.0 [facility] Comment on above: Performed By: #### A CBC, CMPF, LIPA2 #### Testing performed at [address] [address] Platelets (Bld) [#/Vol] 246 10*3/uL Normal 130.0-400.0 [facility] Comment on above: Performed By: #### A CBC, CMPF, LIPA2 #### Testing performed at [address] [address] RBC (Bld) [#/Vol] 4.57 10*6/uL Normal 4.0-5.4 [facility] Comment on above: Performed By: #### A CBC, CMPF, LIPA2 #### Testing performed at [address] [place] [address] WBC (Bld) [#/Vol] 8.1 10*3/uL Normal 3.6-11.0 [facility] Comment on above: Performed By: #### A CBC, CMPF, LIPA2 #### Testing performed at [address] [address] CMP FASTINGon 05-13-2019 A:G RATIO 1.1 RATIO Low 1.3-2.2 [facility] Comment on above: Performed By: #### A CBC, CMPF, LIPA2 #### Testing performed at [address] [address] Albumin [Mass/Vol] 3.9 G/dl Normal 3.5-5.0 [facility] Comment on above: Performed By: #### A CBC, CMPF, LIPA2 #### Testing performed at [address] [address] ALP [Catalytic activity/Vol] 62 U/L Normal 38-126 [facility] Comment on above: Performed By: #### A CBC, CMPF, LIPA2 #### Testing performed at [address] [place] [address] ALT [Catalytic activity/Vol] 14 U/L Normal 14-54 [facility] Comment on above: Performed By: #### A CBC, CMPF, LIPA2 #### Testing performed at [address] [address] AST [Catalytic activity/Vol] 17 U/L Normal 15-41 [facility] Comment on above: Performed By: #### A CBC, CMPF, LIPA2 #### Testing performed at [address] [address] Bilirubin [Mass/Vol] 0.4 mg/dL Normal 0.2-1.2 [facility] Comment on above: Performed By: #### A CBC, CMPF, LIPA2 #### Testing performed at [address] [address] Creatinine [Mass/Vol] 0.82 mg/dL Normal 0.52-1.04 [facility] Comment on above: Performed By: #### A CBC, CMPF, LIPA2 #### Testing performed at [address] [address] EST. GFR, >60 Normal [facility] Comment on above: Performed By: #### A CBC, CMPF, LIPA2 #### Testing performed at [address] [address] EST. GFR,Non >60 Normal [facility] Comment on above: Performed By: #### A CBC, CMPF, LIPA2 #### Testing performed at [address] [address] GFR/1.73 sq M predicted among non-blacks MDRD (S/P/Bld) [Vol rate/Area] Average GFR for 40-49 years old = 99. Normal [facility] Comment on above: Result Comment: Triage Registered Nurse bk Kidney disease, GFR = <60. Kidney failure, GFR = <15. The GFR estimate is not adjusted for extreme body surface area or acute process, nor has it been validated for women or ethnic groups other than and . Performed By: #### A CBC, CMPF, LIPA2 #### Testing performed at [address] [address] Protein [Mass/Vol] 7.6 g/dL Normal 6.3-8.2 [facility] Comment on above: Performed By: #### A CBC, CMPF, LIPA2 #### Testing performed at [address] [address] Urea nitrogen [Mass/Vol] 19 mg/dL Normal 7-20 [facility] Comment on above: Performed By: #### A CBC, CMPF, LIPA2 #### Testing performed at [address] [address] Calcium [Mass/Vol] 8.6 mg/dL Normal 8.4-10.2 [facility] Comment on above: Performed By: #### A CBC, CMPF, LIPA2 #### Testing performed at [address] [address] Chloride [Moles/Vol] 106 mmol/L Normal 98-107 [facility] Comment on above: Performed By: #### A CBC, CMPF, LIPA2 #### Testing performed at [address] [address] CO2 [Moles/Vol] 23 mmol/L Normal 22-30 [facility] Comment on above: Performed By: #### A CBC, CMPF, LIPA2 #### Testing performed at [address] [address] Glucose [Mass/Vol] 98 mg/dL Normal 70-100 [facility] Comment on above: Result Comment: NORMAL <100 mg/dL PREDIABETES 101-126 mg/dL DIABETES 126 mg/dL or higher Performed By: #### A CBC, CMPF, LIPA2 #### Testing performed at [address] [address] Potassium [Moles/Vol] 3.3 mmol/L Low 3.5-5.1 [facility] Comment on above: Performed By: #### A CBC, CMPF, LIPA2 #### Testing performed at [address] [address] Sodium [Moles/Vol] 136 mmol/L Normal 136-145 [facility] Comment on above: Performed By: #### A CBC, CMPF, LIPA2 #### Testing performed at [address] [address] [address] ABDOMEN/PELVIS WITHOUT CO NTRASTon 05-13-2019 CT ABDOMEN/PELVIS WITHOUT CONTRAST EXAMINATION: CT ABDOMEN/PELVIS WITHOUT CONTRAST HISTORY: Rectal bleeding COMPARISON: No relevant prior TECHNIQUE: Non-contrast helical imaging of the abdomen and pelvis is performed. Multiplanar reconstructions are submitted. Dose reduction techniques were achieved by using: automated exposure control and/or adjustment of mA and /or kV according to patient size and/or use of iterative reconstruction technique. FINDINGS: Hepatobiliary:The liver, spleen, gallbladder, and pancreas are normal. No free air or fluid collections are identified. . Gastrointestinal: No bowel wall thickening or obstruction. No evidence for acute appendicitis. There is diverticulosis without evidence for diverticulitis. Genitourinary: Kidneys are symmetric in size and contour. No hydronephrosis or perinephric fluid. No calcifications in the collecting system. Status post hysterectomy. Bladder is unremarkable. There is no significant fluid collection or lymphadenopathy. Skeleton: No acute fracture or bone destruction. Lower thorax: No acute process. IMPRESSION: No acute abdominal process There is diverticulosis without evidence for diverticulitis. Normal [facility] LIPASE,SERUMon 05-13-2019 LIPASE,SERUM 28 U/L Normal 23-300 [facility] Comment on above: Performed By: #### A CBC, CMPF, LIPA2 #### Testing performed at [facility] [address] [place] [address] POC Basic Metabolic Panelon 12-09-2018 Calcium mass conc 9.4 mg/dL 8.4 - 10.2 mg/dL [facility] Chloride molar conc 102 mmol/L 98 - 108 mmol/L [facility] CO2 molar conc 28 mmol/L 21 - 32 mmol/L [facility] Creatinine mass conc 0.9 mg/dL 0.4 - 1 .1 mg/dL [facility] Glucose mass conc 109 mg/dL High 65 - 99 mg/dL [facility] Interpretation and review of laboratory results Abnormal [facility] Potassium molar conc 3.8 mmol/L 3.5 - 5 .1 mmol/L [facility] Sodium molar conc 140 mmol/L 135 - 145 mmol/L [facility] Urea nitrogen mass conc 15 mg/dL 8 - 25 mg/dL [facility] POC CBC and Differentialon 0 12-09-2018 Erythrocyte distribution width Entitic volume (RBC) 13.4 % 11.6 - 14.8 % [facility] Hematocrit Volume Fraction (Bld) 43.9 % 36 - 46 % [facility] Hemoglobin mass conc (Bld) 14.8 g/dL 12 - 16 g/dL [facility] Interpretation and review of laboratory results Abnormal [facility] Lymphocytes #/vol (Bld) 0.9 10*3/uL [facility] Lymphocytes/100 WBC (Bld) 8.7 % [facility] MCH Entitic mass (RBC) 30.1 pg 26 - [address] [facility] MCHC mass conc (RBC) 33.7 g/dL 31 - 37 g/dL [facility] MCV Entitic volume (RBC) 89.2 fL 80 - 100 fL [facility] Mixed 6.0 % [facility] Mixed Abs 0.6 K/mcl [facility] Neutrophil Abs 8.6 High [facility] Neutrophils/100 WBC (Bld) 85.3 % [facility] Platelet mean volume Entitic volume (Bld) 10.3 fL 9 - 15.5 fL [facility] Platelets #/vol (Bld) 230 10*3/uL [facility] RBC #/vol (Bld) 4.92 10*6/uL [facility] WBC #/vol (Bld) 10.10 10*3/uL [facility] alth Otheron 11-10-2018 Interpretation and review of laboratory results Normal [facility] T4, Freeon 11-10-2018 Free T4 [Mass/Vol] 1.0 ng/dL 0.7 - 1.7 ng/dL [facility] TSHon 11-10-2018 TSH Qn 1.35 m[IU]/L [facility] Comment on above: Please note reference range change as of 05/15/18. XR KNEE LEFT 2 VIEWS (ST[address] RD)on 10-31-2018 Unremarkable left knee. Workstation ID: [id number] [facility] EXAMINATION: XR KNEE LEFT 2 VIEWS (STANDARD) ADDITIONAL CLINICAL INFORMATION: left knee pain s/p fall COMPARISON: None. FINDINGS: Three views of the knee were obtained. There is no evidence of fracture, dislocation or significant joint effusion. [facility] [employer] - 10/31/2018 4:39 PM EDT EXAMINATION: XR KNEE LEFT 2 VIEWS (STANDARD) ADDITIONAL CLINICAL INFORMATION: left knee pain s/p fall COMPARISON: None. FINDINGS: Three views of the knee were obtained. There is no evidence of fracture, dislocation or significant joint effusion. IMPRESSION: Unremarkable left knee. Workstation ID: [id number] [facility] XR Wrist Right 3+ Views (Sta [address])on 10-31-2018 Unremarkable right wrist. Workstation ID: [id number] [facility] EXAMINATION: XR WRIST RIGHT 3+ VIEWS (STANDARD) ADDITIONAL CLINICAL INFORMATION: right wrist pain s/p fall COMPARISON: None. FINDINGS: Four views of the right wrist were obtained. There is no evidence of fracture or dislocation. [employer] - 10/31/2018 4:39 PM EDT EXAMINATION: XR WRIST RIGHT 3+ VIEWS (STANDARD) ADDITIONAL CLINICAL INFORMATION: right wrist pain s/p fall COMPARISON: None. FINDINGS: Four views of the right wrist were obtained. There is no evidence of fracture or dislocation. IMPRESSION: Unremarkable right wrist. Workstation ID: [id number] [facility] CBC with Diffon 08-15-2018 Basophils #/vol (Bld) 0.0 K/mcL Normal 0-0.2 [facility] Comment on above: Performed By: #### F T4, TSH, LIPID, CMET, CBCDIF #### Unless otherwise noted, all testing performed by [place] [id number] CLIA: [id number] Exchange Architect: Jose Goodwin M.D. Basophils/100 WBC (Bld) 0.6 % Normal [facility] Comment on above: Performed By: #### F T4, TSH, LIPID, CMET, CBCDIF #### Unless otherwise noted, all testing performed by [place] [id number] CLIA: [id number] Exchange Architect: Jose Goodwin M.D. Eosinophils #/vol (Bld) 0.3 K/mcL Normal 0-0.5 [facility] Comment on above: Performed By: #### F T4, TSH, LIPID, CMET, CBCDIF #### Unless otherwise noted, all testing performed by [place] [address] CLIA: [id number] Exchange Architect: Jose Goodwin M.D. Eosinophils/100 WBC (Bld) 4.2 % Normal [facility] Comment on above: Performed By: #### F T4, TSH, LIPID, CMET, CBCDIF #### Unless otherwise noted, all testing performed by [place] [address] CLIA: [id number] Exchange Architect: Jose Goodwin M.D. Erythrocyte distribution width Ratio (RBC) 12.8 % Normal 10.0-14.4 [facility] Comment on above: Performed By: #### F T4, TSH, LIPID, CMET, CBCDIF #### Unless otherwise noted, all testing performed by [place] [address] CLIA: [id number] Exchange Architect: Jose Goodwin M.D. Hematocrit Volume Fraction (Bld) 43.5 % Normal 34.4-44.8 [facility] Comment on above: Performed By: #### F T4, TSH, LIPID, CMET, CBCDIF #### Unless otherwise noted, all testing performed by [place] [address] CLIA: [id number] Exchange Architect: Jose Goodwin M.D. Hemoglobin mass conc (Bld) 14.4 g/dL Normal 11.6-15.4 [facility] Comment on above: Performed By: #### F T4, TSH, LIPID, CMET, CBCDIF #### Unless otherwise noted, all testing performed by [place] [address] CLIA: [id number] Exchange Architect: Jose Goodwin M.D. Lymphocytes #/vol (Bld) 2.5 K/mcL Normal 1.0-3.7 [facility] Comment on above: Performed By: #### F T4, TSH, LIPID, CMET, CBCDIF #### Unless otherwise noted, all testing performed by [place] [address] CLIA: [id number] Exchange Architect: Jose Goodwin M.D. Lymphocytes/100 WBC (Bld) 32.2 % Normal [facility] Comment on above: Performed By: #### F T4, TSH, LIPID, CMET, CBCDIF #### Unless otherwise noted, all testing performed by [place] [address] CLIA: [id number] Exchange Architect: Jose Goodwin M.D. MCH Entitic mass (RBC) 29.5 pg Normal 27.9-33.9 [facility] Comment on above: Performed By: #### F T4, TSH, LIPID, CMET, CBCDIF #### Unless otherwise noted, all testing performed by [place] [address] CLIA: [id number] Exchange Architect: Jose Goodwin M.D. MCHC mass conc (RBC) 33.0 g/dL Low 33.1-35.1 [facility] Comment on above: Performed By: #### F T4, TSH, LIPID, CMET, CBCDIF #### Unless otherwise noted, all testing performed by [place] [address] CLIA: [id number] Exchange Architect: Jose Goodwin M.D. MCV Entitic volume (RBC) 89.6 fL Normal 82.6-98.9 [facility] Comment on above: Performed By: #### F T4, TSH, LIPID, CMET, CBCDIF #### Unless otherwise noted, all testing performed by [place] [address] CLIA: [id number] Exchange Architect: Jose Goodwin M.D. Monocytes #/vol (Bld) 0.5 K/mcL Normal 0.1-0.6 [facility] Comment on above: Performed By: #### F T4, TSH, LIPID, CMET, CBCDIF #### Unless otherwise noted, all testing performed by [place] [address] CLIA: [id number] Exchange Architect: Jose Goodwin M.D. Monocytes/100 WBC (Bld) 5.9 % Normal [facility] Comment on above: Performed By: #### F T4, TSH, LIPID, CMET, CBCDIF #### Unless otherwise noted, all testing performed by [place] [address] CLIA: [id number] Exchange Architect: Jose Goodwin M.D. Neutrophils #/vol (Bld) 4.5 K/mcL Normal 1.2-6.9 [facility] Comment on above: Performed By: #### F T4, TSH, LIPID, CMET, CBCDIF #### Unless otherwise noted, all testing performed by [place] [address] CLIA: [id number] Exchange Architect: Jose Goodwin M.D. Platelet mean volume Entitic volume (Bld) 8.9 fL Normal 7.0-10.6 [facility] Comment on above: Performed By: #### F T4, TSH, LIPID, CMET, CBCDIF #### Unless otherwise noted, all testing performed by [place] [address] CLIA: [id number] Exchange Architect: Jose Goodwin M.D. Platelets #/vol (Bld) 266 K/mcL Normal 162-402 [facility] Comment on above: Performed By: #### F T4, TSH, LIPID, CMET, CBCDIF #### Unless otherwise noted, all testing performed by [place] [address] CLIA: [id number] Exchange Architect: Jose Goodwin M.D. RBC #/vol (Bld) 4.86 M/mcL Normal 3.7-5.0 [facility] Comment on above: Performed By: #### F T4, TSH, LIPID, CMET, CBCDIF #### Unless otherwise noted, all testing performed by [place] [phone] CLIA: [id number] Exchange Architect: Jose Goodwin M.D. Segmented Neut % 57.1 % Normal [facility] Comment on above: Performed By: #### F T4, TSH, LIPID, CMET, CBCDIF #### Unless otherwise noted, all testing performed by [place] [address] CLIA: [id number] Exchange Architect: Jose Goodwin M.D. WBC #/vol (Bld) 7.9 K/mcL Normal 3.4-10.6 [facility] Comment on above: Performed By: #### F T4, TSH, LIPID, CMET, CBCDIF #### Unless otherwise noted, all testing performed by [place] [address] CLIA: [id number] Exchange Architect: Jose Goodwin M.D. Chlamydia/GC/Trich Amp RNAon 08-15-2018 Chlamydia trach, Amp. RNA Genl Negative Normal Negative [facility] Comment on above: Performed By: #### T SH, FT4 #### Unless otherwise noted, all testing performed by [place] [address] CLIA: [id number] Exchange Architect: Jose Goodwin M.D. Neisseria Gonorrhoeae, Amp.RNA Negative Normal Negative [facility] Comment on above: Result Comment: Test Performed by [facility] [address] [place] [address] Performed By: #### T SH, FT4 #### Unless otherwise noted, all testing performed by [place] [address] CLIA: [id number] Exchange Architect: Jose Goodwin M.D. Trichomonas vaginalis Amp.RNA Negative Normal Negative [facility] Comment on above: Result Comment: Test Performed by [facility] [address] [place] [address] Performed By: #### T SH, FT4 #### Unless otherwise noted, all testing performed by [place] [phone] CLIA: [id number] Exchange Architect: Jose Goodwin M.D. Comprehensive Metabolic Pane [facility] 08-15-2018 Albumin mass conc 3.7 g/dL Normal 3.2-5.2 [facility] Comment on above: Performed By: #### F T4, TSH, LIPID, CMET, CBCDIF #### Unless otherwise noted, all testing performed by [place] [phone] CLIA: [id number] Exchange Architect: Jose Goodwin M.D. ALP enzyme act/vol 81 U/L Normal 40-150 [facility] Comment on above: Performed By: #### F T4, TSH, LIPID, CMET, CBCDIF #### Unless otherwise noted, all testing performed by [place] [phone] CLIA: [id number] Exchange Architect: Jose Goodwin M.D. ALT enzyme act/vol 20 U/L Normal 14-65 [facility] Comment on above: Result Comment: This test result might be falsely depressed or falsely elevated on samples drawn from patients taking Sulfasalazine and Sulfapyridine. Venipuncture should occur prior to taking either of these drugs. Performed By: #### F T4, TSH, LIPID, CMET, CBCDIF #### Unless otherwise noted, all testing performed by [place] [address] CLIA: [id number] Exchange Architect: Jose Goodwin M.D. AST enzyme act/vol 16 U/L Normal 0-45 [facility] Comment on above: Result Comment: This test result might be falsely depressed or falsely elevated on samples drawn from patients taking Sulfasalazine and Sulfapyridine. Venipuncture should occur prior to taking either of these drugs. Performed By: #### F T4, TSH, LIPID, CMET, CBCDIF #### Unless otherwise noted, all testing performed by [place] [address] CLIA: [id number] Exchange Architect: Jose Goodwin M.D. Bilirubin mass conc 0.4 mg/dL Normal 0.3-1.2 [facility] Comment on above: Performed By: #### F T4, TSH, LIPID, CMET, CBCDIF #### Unless otherwise noted, all testing performed by [place] [address] CLIA: [id number] Exchange Architect: Jose Goodwin M.D. Calcium mass conc 8.7 mg/dL Normal 8.4-10.2 [facility] Comment on above: Performed By: #### F T4, TSH, LIPID, CMET, CBCDIF #### Unless otherwise noted, all testing performed by [place] [address] CLIA: [id number] Exchange Architect: Jose Goodwin M.D. Chloride molar conc 104 mmol/L Normal 98-108 [facility] Comment on above: Performed By: #### F T4, TSH, LIPID, CMET, CBCDIF #### Unless otherwise noted, all testing performed by [place] [address] CLIA: [id number] Exchange Architect: Jose Goodwin M.D. CO2 molar conc 28 mmol/L Normal 21-32 [facility] Comment on above: Performed By: #### F T4, TSH, LIPID, CMET, CBCDIF #### Unless otherwise noted, all testing performed by [place] [address] CLIA: [id number] Exchange Architect: Jose Goodwin M.D. Creatinine mass conc 0.90 mg/dL Normal 0.40-1.10 [facility] Comment on above: Performed By: #### F T4, TSH, LIPID, CMET, CBCDIF #### Unless otherwise noted, all testing performed by [place] [address] CLIA: [id number] Exchange Architect: Jose Goodwin M.D. GFR/1.73 sq M predicted among blacks MDRD vol rate/area (S/P/Bld) mL/min/{1.73_m2} Normal [facility] Comment on above: Result Comment: Afri can Guyanese GFR Calc Performed By: #### F T4, TSH, LIPID, CMET, CBCDIF #### Unless otherwise noted, all testing performed by [place] [address] CLIA: [id number] Exchange Architect: Jose Goodwin M.D. GFR/1.73 sq M predicted among non-blacks MDRD vol rate/area (S/P/Bld) mL/min/{1.73_m2} Normal [facility] Comment on above: Result Comment: Non- GFR Calc eGFR is an estimated Glomerular Filtration Rate based on the value of the patient's serum creatinine. In outpatients, eGFR should be used as a helpful tool in screening for CKD. In inpatients or patients with acute renal failure, eGFR represents the GFR at the moment of the draw and should be used with caution. Performed By: #### F T4, TSH, LIPID, CMET, CBCDIF #### Unless otherwise noted, all testing performed by [place] [address] CLIA: [id number] Exchange Architect: Jose Goodwin M.D. Glucose mass conc 88 mg/dL Normal 70-99 [facility] Comment on above: Result Comment: This test result might be falsely depressed or falsely elevated on samples drawn from patients taking Sulfasalazine and Sulfapyridine. Venipuncture should occur prior to taking either of these drugs. Performed By: #### F T4, TSH, LIPID, CMET, CBCDIF #### Unless otherwise noted, all testing performed by [place] [phone] CLIA: [id number] Exchange Architect: Jose Goodwin M.D. Potassium molar conc 4.1 mmol/L Normal 3.5-5.1 [facility] Comment on above: Performed By: #### F T4, TSH, LIPID, CMET, CBCDIF #### Unless otherwise noted, all testing performed by [place] [address] CLIA: [id number] Exchange Architect: Jose Goodwin M.D. Protein mass conc 7.8 g/dL Normal 6.0-8.0 [facility] Comment on above: Performed By: #### F T4, TSH, LIPID, CMET, CBCDIF #### Unless otherwise noted, all testing performed by [place] [phone] CLIA: [id number] Exchange Architect: Jose Goodwin M.D. Sodium molar conc 137 mmol/L Normal 135-145 [facility] Comment on above: Performed By: #### F T4, TSH, LIPID, CMET, CBCDIF #### Unless otherwise noted, all testing performed by [place] [address] CLIA: [id number] Exchange Architect: Jose Goodwin M.D. Urea nitrogen mass conc 20 mg/dL Normal 8-25 [facility] Comment on above: Performed By: #### F T4, TSH, LIPID, CMET, CBCDIF #### Unless otherwise noted, all testing performed by [place] [address] CLIA: [id number] Exchange Architect: Jose Goodwin M.D. Culture,Bacterialon 08-15-19 19 Culture,Bacterial Test Name: Culture,Bacterial Culture Status: Final Culture Report: Normal Tami Gram Stain: Few WBC's Many Squamous Epithelial Cells Few Clue Cells Many Gram Negative Rods Many Gram Positive Cocci Many Gram Variable Rods Gram stain consistent with Bacterial Vaginosis. Micro Source: Genital vaginal Normal [facility] Comment on above: Performed By: #### T SH, FT4 #### Unless otherwise noted, all testing performed by [place] [address] CLIA: [id number] Exchange Architect: Jose Goodwin M.D. 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 Diagnosis Negative for Intraepithelial Lesion or Malignancy. Electronically Signed By Chidi YOUNG (ASCP) , Screening performed at [address] [address] (Case signed 08/25/2018) The Papanicolaou smear is a screening tool, and like any screen, has an inherent false negative rate. Interpretation of results should be made in the context of patient history and clinical findings. Normal [facility] Lipid Panelon 08-15-2018 Cholesterol in HDL mass conc 78 mg/dL High 40-59 [facility] Comment on above: Performed By: #### F T4, TSH, LIPID, CMET, CBCDIF #### Unless otherwise noted, all testing performed by [place] [address] CLIA: [id number] Exchange Architect: Jose Goodwin M.D. Cholesterol in LDL mass conc 106 mg/dL Normal 10-150 [facility] Comment on above: Performed By: #### F T4, TSH, LIPID, CMET, CBCDIF #### Unless otherwise noted, all testing performed by [place] [address] CLIA: [id number] Exchange Architect: Jose Goodwin M.D. Cholesterol in VLDL mass conc 9 mg/dL Normal 5-40 [facility] Comment on above: Performed By: #### F T4, TSH, LIPID, CMET, CBCDIF #### Unless otherwise noted, all testing performed by [place] [address] CLIA: [id number] Exchange Architect: Jose Goodwin M.D. Cholesterol mass conc 192 mg/dL Normal 100-199 [facility] Comment on above: Performed By: #### F T4, TSH, LIPID, CMET, CBCDIF #### Unless otherwise noted, all testing performed by [place] [address] CLIA: [id number] Exchange Architect: Jose Goodwin M.D. Cholesterol.total/Chol esterol in HDL mass ratio 2.5 {ratio} Low 3.2-5.0 [facility] Comment on above: Result Comment: Jennifer reyes Coronary Heart Disease Risk Factor (CHDRF): Average risk= 4.4 1/2 Average risk= 3.3 2 times Average risk= 7.1 Performed By: #### F T4, TSH, LIPID, CMET, CBCDIF #### Unless otherwise noted, all testing performed by [place] [address] CLIA: [id number] Exchange Architect: Jose Goodwin M.D. Triglyceride mass conc 44 mg/dL Normal 30-150 [facility] Comment on above: Performed By: #### F T4, TSH, LIPID, CMET, CBCDIF #### Unless otherwise noted, all testing performed by [place] [address] CLIA: [id number] Exchange Architect: Jose Goodwin M.D. T4, Freeon 08-15-2018 T4 free mass conc 0.9 ng/dL Normal 0.7-1.7 [facility] Comment on above: Result Comment: Samp les from patients routinely receiving high dose biotin therapy (100-300 mg/day) may show falsely increased results. Please correlate clinically. Performed By: #### F T4, TSH, LIPID, CMET, CBCDIF #### Unless otherwise noted, all testing performed by [place] [address] CLIA: [id number] Exchange Architect: Jose Goodwin M.D. TSHon 08-15-2018 Thyrotropin Qn 4.68 uIU/mL High 0.270-4.200 [facility] Comment on above: Result Comment: Samp les from patients routinely receiving high dose biotin therapy (100-300 mg/day) may show falsely decreased results. Please correlate clinically. Please note reference range change as of 06/03/18. Performed By: #### T SH, FT4 #### Unless otherwise noted, all testing performed by [place] [address] CLIA: [id number] Exchange Architect: Jose Goodwin M.D. Chlamydia/GC/Trich Amp RNA U fanta 08-09-2018 Chlamydia trach, Amp RNA Ur Negative Normal Negative [facility] Comment on above: Performed By: #### C HLGCTRU #### Unless otherwise noted, all testing performed by [place] [phone] CLIA: [id number] Exchange Architect: Jose Goodwin M.D. Neisseria Gonorr, Amp.RNA Ur Negative Normal Negative [facility] Comment on above: Result Comment: [place] [address] Performed By: #### C HLGCTRU #### Unless otherwise noted, all testing performed by [place] [phone] CLIA: [id number] Exchange Architect: Jose Goodwin M.D. Trichomonas vag. Amp RNA Ur Negative Normal Negative [facility] Comment on above: Result Comment: [place] [address] Performed By: #### C HLGCTRU #### Unless otherwise noted, all testing performed by [place] [phone] CLIA: [id number] Exchange Architect: Jose Goodwin M.D. 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 COMMENT: A PAS stain is negative for fungal microorganisms. Gross Description The specimen received in formalin is a grayish-lamb fragment measuring 1.0 x 1.0 x 0.6 cm. Serially sectioned. Totally submitted in one cassette. CS:lat (SCOTT/lt) Electronically Signed By Cristian Pizano MD , Pathologist (Case signed 02/17/2018) Normal [facility] Skin / nail biopsyon 018 Skin / nail biopsy Marika Ortega CNP 02/17/2018 3:47 PM Skin / nail biopsy Date/Time: 02/14/2018 8:58 AM Performed by: MARIKA ORTEGA Authorized by: MARIKA ORTEGA Verbal consent: obtained Written consent: obtained Consent given by: patient Relevant documents: Relevent documents present and verified. Medical history, medications, allergies and physical assessment reviewed/completed Test results: test results available and properly labeled Site: site marked by physician or proceduralist who is privileged and credentialed to perform procedure Relevant imaging studies available and labeled: Yes Patient identity confirmed: verified patient name and and verbally with patient Time out: Immediately prior to procedure a time out was called to verify the correct patient, procedure, equipment, customer support professional and site/side marked as required. Timeout performed at: 02/14/2018 8:56 AM Physician or proceduralist has discussed critical or nonroutine steps, procedure duration and anticipated blood loss: Yes All team members agree to proceed: Yes Preparation: Patient was prepped and draped in usual sterile fashion Local anesthesia used?: Yes Anesthesia: Local infiltration Local anesthetic: Lidocaine 1% with epinephrine Anesthetic total (ml): 2 Patient sedated: no Patient tolerance: Patient tolerated the procedure well with no immediate complications Patient's skin lesion is 1 inch in diameter with a crusty/black-brown covering. Patient states that it is extremely itchy. Invalid Interpretation Code [facility] T4, Freeon 01-31-2018 Thyroxine (T4) free 0.9 ng/dL Normal 0.7-1.7 [facility] Comment on above: Samples from patient s routinely receiving high dose biotin therapy (100-300 mg/day) may show falsely decreased results. Please correlate clinically. Result Comment: Samp les from patients routinely receiving high dose biotin therapy (100-300 mg/day) may show falsely decreased results. Please correlate clinically. Performed By: #### F T4, TSH #### Unless otherwise noted, all testing performed by [address] [address] CLIA: [id number] Exchange Architect: Jose Goodwin M.D. TSHon 01-31-2018 Thyroid stimulating hormone (TSH) 2.26 uIU/mL Invalid Interpretation Code 0.320 - 5.000 [facility] Comment on above: Samples from patient s routinely receiving high dose biotin therapy (100-300 mg/day) may show falsely decreased results. Please correlate clinically. Thyrotropin Qn 2.26 uIU/mL Normal 0.320-5.000 [facility] Comment on above: Result Comment: Samp les from patients routinely receiving high dose biotin therapy (100-300 mg/day) may show falsely decreased results. Please correlate clinically. Performed By: #### F T4, TSH #### Unless otherwise noted, all testing performed by [facility] [address] [place] [address] CLIA: [id number] Exchange Architect: Jose Goodwin M.D. POC Urinalysis Dipstick, Aut oon 12-10-2017 Interpretation and review of laboratory results Normal Invalid Interpretation Code [facility] Urine, bilirubin presence Negative Invalid Interpretation Code Negative [facility] Urine, glucose presence Negative Invalid Interpretation Code Normal, Negative mg/dL [facility] Urine, hemoglobin presence Negative Invalid Interpretation Code Negative [facility] Urine, ketones presence Negative Invalid Interpretation Code Negative mg/dL [facility] Urine, leukocyte esterase presence Negative Invalid Interpretation Code Negative [facility] Urine, nitrite presence Negative Invalid Interpretation Code Negative [facility] Urine, pH 5.5 [pH] Invalid Interpretation Code 5.0 - 7.0 [facility] Urine, protein presence Negative Invalid Interpretation Code Negative mg/dL [facility] Urine, specific gravity 1.020 1 Invalid Interpretation Code 1.005 - 1.025 [facility] Urine, urobilinogen 0.2 mg/dL Invalid Interpretation Code <2.0, 0.2, Normal, Negative, 1.0, 2.0, <1.0 [facility] T4, Freeon 12-06-2017 Thyroxine (T4) free 0.8 ng/dL Normal 0.7-1.7 [facility] Comment on above: Result Comment: Samp les from patients routinely receiving high dose biotin therapy (100-300 mg/day) may show falsely decreased results. Please correlate clinically. Performed By: #### T SH, FT4 #### Unless otherwise noted, all testing performed by [place] [id number] CLIA: [id number] Exchange Architect: Jose Goodwin M.D. TSHon 12-06-2017 Interpretation and review of laboratory results Abnormal Invalid Interpretation Code [facility] Thyroid stimulating hormone (TSH) 9.46 uIU/mL High 0.320 - 5.000 [facility] Thyrotropin Qn 9.46 uIU/mL High 0.320-5.000 [facility] Comment on above: Result Comment: Samp les from patients routinely receiving high dose biotin therapy (100-300 mg/day) may show falsely decreased results. Please correlate clinically. Performed By: #### T SH, FT4 #### Unless otherwise noted, all testing performed by [place] [id number] CLIA: [id number] Exchange Architect: Jose Goodwin M.D. CBCon 10-05-2017 Erythrocytes (RBC) 0.00 K/mcL Invalid Interpretation Code 0.00 - 0.00 [facility] Erythrocytes (RBC) 3.84 M/mcL Low 4.00 - 5.20 [facility] Hematocrit (HCT) 32.8 % Low 36 - 46 % [facility] Hemoglobin (HGB) 10.5 g/dL Low 12 - 16 g/dL [facility] Interpretation and review of laboratory results Abnormal Invalid Interpretation Code [facility] MCH 27.3 pg Invalid Interpretation Code 26 - 34 pg [facility] MCHC 32.0 g/dL Invalid Interpretation Code 31 - 37 g/dL [facility] MCV 85.4 fL Invalid Interpretation Code 80 - 100 fL [facility] Nucleated erythrocytes/100 erythrocytes 0.0 % Invalid Interpretation Code [facility] Platelet mean volume (PMV) 10.4 fL Invalid Interpretation Code 9 - 15.5 fL [facility] Platelets 224 K/mcL Invalid Interpretation Code 150 - 400 [facility] RDW-CA 19.8 % High 11.6 - 14.8 % [facility] WBC (Leukocytes) 10.35 K/mcL Invalid Interpretation Code 4.50 - 11.00 [facility] Renal Function Panelon 10-05 Albumin 3.3 g/dL Invalid Interpretation Code 3.2 - 5.2 g/dL [facility] Anion gap 14 mmol/L Invalid Interpretation Code 10 - 20 mmol/L [facility] Bicarbonate (HCO3) 25 mmol/L Invalid Interpretation Code 21 - 32 mmol/L [facility] BUN/Creatinine Ratio 16.7 mg/mg Invalid Interpretation Code 10.0 - 20.0 [facility] Calcium 8.7 mg/dL Invalid Interpretation Code 8.4 - 10.2 mg/dL [facility] Chloride 103 mmol/L Invalid Interpretation Code 98 - 108 mmol/L [facility] Creatinine 0.78 mg/dL Invalid Interpretation Code 0.4 - 1.1 mg/dL [facility] eGFR (non-black) The eGFR should be used for monitoring renal function only and not for medication dosing. Invalid Interpretation Code [facility] eGFR (non-black) 93 mL/min/{1.73_m2} Invalid Interpretation Code >=60 [facility] Glucose 93 mg/dL Invalid Interpretation Code 65 - 99 mg/dL [facility] Interpretation and review of laboratory results Normal Invalid Interpretation Code [facility] Phosphate 3.1 mg/dL Invalid Interpretation Code 2.7 - 4.5 mg/dL [facility] Potassium 3.8 mmol/L Invalid Interpretation Code 3.5 - 5.1 mmol/L [facility] Sodium 138 mmol/L Invalid Interpretation Code 135 - 145 mmol/L [facility] Urea nitrogen 13 mg/dL Invalid Interpretation Code 8 - 25 mg/dL [facility] ABORH Verificationon 018 ABO+Rh group Positive Invalid Interpretation Code [facility] Verification of ABORH ABO/Rh Verification Invali d Interpretation Code [facility] ABORH Verification Patient's ABO/Rh is verified. Invalid Interpretation Code [facility] POC HCT+HGBon 10-04-2017 Hematocrit (HCT) 38 % Invalid Interpretation Code 36 - 46 % [facility] Hemoglobin (HGB) 12.9 g/dL Invalid Interpretation Code 12 - 16 g/dL [facility] Interpretation and review of laboratory results Normal Invalid Interpretation Code [facility] POC , Urineon 10-04 Interpretation and review of laboratory results Normal Invalid Interpretation Code [facility] Urine, test (choriogonadotropin presence) Negative Invalid Interpretation Code Negative [facility] Type and Screenon 10-04-2017 ABO+Rh group Positive Invalid Interpretation Code [facility] Blood group antibody presence Negative Invalid Interpretation Code [facility] Specimen Expires 10/07/2017 23:59 EST Invalid Interpretation Code [facility] Vital Signs Date Time Vital Sign Value Performing Clinician Jayleni leroy 02-06-2024 15:33-0400 Body height 167.6 cm Marika Ortega [employer] Work Phone: [facility] 02-06-2024 15:33-0400 Body mass index (BMI) [Ratio] 45.35 kg/m2 Marika Ortega [employer] Work Phone: [facility] 02-06-2024 15:33-0400 Body temperature 98.29 [degF] Marika Ortega [employer] Work Phone: [facility] 02-06-2024 15:33-0400 Body weight 127.46 kg Marika Ortega [employer] Work Phone: [facility] 02-06-2024 15:33-0400 Diastolic blood pressure 82 mm[Hg] Marika Ortega [employer] Work Phone: [facility] 02-06-2024 15:33-0400 Heart rate 78 /min Marika Ortega [employer] Work Phone: [facility] 02-06-2024 15:33-0400 Respiratory rate 16 /min Marika Ortega [employer] Work Phone: [facility] 02-06-2024 15:33-0400 SaO2% (BldA) [Mass fraction] 95 % Marika Ortega [employer] Work Phone: [facility] 02-06-2024 15:33-0400 Systolic blood pressure 118 mm[Hg] Marika Ortega [employer] Work Phone: [facility] 09-27-2023 08:56-0500 Body height 167.6 cm Megan Mcmahan MD Work Phone: [facility] 09-27-2023 08:56-0500 Body mass index (BMI) [Ratio] 43.58 kg/m2 Megan Mcmahan MD Work Phone: [facility] 09-27-2023 08:56-0500 Body weight 122.47 kg Megan Mcmhaan MD Work Phone: [facility] 09-27-2023 08:56-0500 Diastolic blood pressure 70 mm[Hg] Megan Mcmahan MD Work Phone: [facility] 09-27-2023 08:56-0500 Heart rate 106 /min Megan Mcmahan MD Work Phone: [facility] 09-27-2023 08:56-0500 Systolic blood pressure 107 mm[Hg] Megan Mcmahan MD Work Phone: [facility] 06-03-2023 11:09-0400 Body height 167.6 cm Megan Mcmahan MD Work Phone: [facility] 06-03-2023 11:09-0400 Body mass index (BMI) [Ratio] 43.45 kg/m2 Megan Mcmahan MD Work Phone: [facility] 06-03-2023 11:09-0400 Body weight 122.11 kg Megan Mcmahan MD Work Phone: [facility] 06-03-2023 11:09-0400 Diastolic blood pressure 70 mm[Hg] Megan Mcmahan MD Work Phone: [facility] 06-03-2023 11:09-0400 Heart rate 76 /min Megan Mcmahan MD Work Phone: [facility] 06-03-2023 11:09-0400 Systolic blood pressure 108 mm[Hg] Megan Mcmahan MD Work Phone: [facility] 05-03-2023 10:42-0400 Body height 167.6 cm Megan Mcmahan MD Work Phone: [facility] 05-03-2023 10:42-0400 Body mass index (BMI) [Ratio] 43.93 kg/m2 Megan Mcmahan MD Work Phone: [facility] 05-03-2023 10:42-0400 Body weight 123.47 kg Megan Mcmahan MD Work Phone: [facility] 05-03-2023 10:42-0400 Diastolic blood pressure 64 mm[Hg] Megan Mcmahan MD Work Phone: [facility] 05-03-2023 10:42-0400 Heart rate 75 /min Megan Mcmahan MD Work Phone: [facility] 05-03-2023 10:42-0400 Systolic blood pressure 100 mm[Hg] Megan Mcmahan MD Work Phone: [facility] 11-30-2022 14:59-0400 Body height 168.4 cm Marika Ortega [employer] Work Phone: [facility] 11-30-2022 14:59-0400 Body mass index (BMI) [Ratio] 44.16 kg/m2 Marika Ortega [employer] Work Phone: [facility] 11-30-2022 14:59-0400 Body temperature 97.3 [degF] Marika Ortega [employer] Work Phone: [facility] 11-30-2022 14:59-0400 Body weight 125.24 kg Marika Ortega [employer] Work Phone: [facility] 11-30-2022 14:59-0400 Diastolic blood pressure 77 mm[Hg] Marika Ortega [employer] Work Phone: [facility] 11-30-2022 14:59-0400 Heart rate 93 /min Marika Ortega [employer] Work Phone: [facility] 11-30-2022 14:59-0400 Respiratory rate 18 /min Marika Ortega [employer] Work Phone: [facility] 11-30-2022 14:59-0400 SaO2% (BldA) [Mass fraction] 97 % Marika Ortega [employer] Work Phone: [facility] 11-30-2022 14:59-0400 Systolic blood pressure 109 mm[Hg] Marika Ortega [employer] Work Phone: [facility] 10-26-2022 15:27-0400 Body mass index (BMI) [Ratio] 44.13 kg/m2 Megan Mcmahan MD Work Phone: [facility] 10-26-2022 15:27-0400 Body weight 125.28 kg Megan Mcmahan MD Work Phone: [facility] 10-26-2022 15:27-0400 Diastolic blood pressure 72 mm[Hg] Megan Mcmahan MD Work Phone: [facility] 10-26-2022 15:27-0400 Heart rate 91 /min Megan Mcmahan MD Work Phone: [facility] 10-26-2022 15:27-0400 Systolic blood pressure 109 mm[Hg] Megan Mcmahan MD Work Phone: [facility] 07-13-2022 14:06-0500 Body height 168.5 cm Megan Mcmahan MD Work Phone: [facility] 07-13-2022 14:06-0500 Body mass index (BMI) [Ratio] 42.18 kg/m2 Megan Mcmahan MD Work Phone: [facility] 07-13-2022 14:06-0500 Body weight 119.75 kg Megan Mcmahan MD Work Phone: [facility] 07-13-2022 14:06-0500 Diastolic blood pressure 81 mm[Hg] Megan Mcmahan MD Work Phone: [facility] 07-13-2022 14:06-0500 Heart rate 90 /min Megan Mcmahan MD Work Phone: [facility] 07-13-2022 14:06-0500 Systolic blood pressure 130 mm[Hg] Megan Mcmahan MD Work Phone: [facility] 04-12-2022 14:31-0400 Body height 167.6 cm Marika Ortega [employer] Work Phone: [facility] 04-12-2022 14:31-0400 Body mass index (BMI) [Ratio] 42.24 kg/m2 Marika Ortega [employer] Work Phone: [facility] 04-12-2022 14:31-0400 Body temperature 98.2 [degF] Marika Ortega [employer] Work Phone: [facility] 04-12-2022 14:31-0400 Body weight 118.71 kg Marika Ortega [employer] Work Phone: [facility] 04-12-2022 14:31-0400 Diastolic blood pressure 77 mm[Hg] Marika Ortega [employer] Work Phone: [facility] 04-12-2022 14:31-0400 Heart rate 92 /min Marika Ortega [employer] Work Phone: [facility] 04-12-2022 14:31-0400 Respiratory rate 16 /min Marika Ortega [employer] Work Phone: [facility] 04-12-2022 14:31-0400 SaO2% (BldA) [Mass fraction] 96 % Marika Ortega [employer] Work Phone: [facility] 04-12-2022 14:31-0400 Systolic blood pressure 109 mm[Hg] Marika Ortega [employer] Work Phone: [facility] 01-18-2022 13:31-0400 Body height 167.6 cm Marielle Palmer MD Work Phone: [facility] 01-18-2022 13:31-0400 Body mass index (BMI) [Ratio] 41.64 kg/m2 Marielle Palmer MD Work Phone: [facility] 01-18-2022 13:31-0400 Body weight 117.03 kg Marielle Palmer MD Work Phone: [facility] 01-18-2022 13:31-0400 Diastolic blood pressure 80 mm[Hg] Marielle Palmer MD Work Phone: [facility] 01-18-2022 13:31-0400 Heart rate 82 /min Marielle Palmer MD Work Phone: [facility] 01-18-2022 13:31-0400 Systolic blood pressure 126 mm[Hg] Marielle Palmer MD Work Phone: [facility] 12-27-2021 14:18-0400 Body height 167.6 cm Marika Ortega [employer] Work Phone: [facility] 12-27-2021 14:18-0400 Body mass index (BMI) [Ratio] 41.71 kg/m2 Marika Ortega [employer] Work Phone: [facility] 12-27-2021 14:18-0400 Body temperature 97.59 [degF] Marika Ortega [employer] Work Phone: [facility] 12-27-2021 14:18-0400 Body weight 117.21 kg Marika Ortega [employer] Work Phone: [facility] 12-27-2021 14:18-0400 Diastolic blood pressure 73 mm[Hg] Marika Ortega [employer] Work Phone: [facility] 12-27-2021 14:18-0400 Heart rate 75 /min Marika Ortega [employer] Work Phone: [facility] 12-27-2021 14:18-0400 Respiratory rate 16 /min Marika Ortega [employer] Work Phone: [facility] 12-27-2021 14:18-0400 SaO2% (BldA) [Mass fraction] 97 % Marika Ortega [employer] Work Phone: [facility] 12-27-2021 14:18-0400 Systolic blood pressure 107 mm[Hg] Marika Ortega [employer] Work Phone: [facility] 11-14-2021 14:35-0400 Body height 167.6 cm Mirian Hanson [employer] Work Phone: [facility] 11-14-2021 14:35-0400 Body mass index (BMI) [Ratio] 39.87 kg/m2 Mirian Jallohe [employer] Work Phone: [facility] 11-14-2021 14:35-0400 Body temperature 98.01 [degF] Mirian Jallohe [employer] Work Phone: [facility] 11-14-2021 14:35-0400 Body weight 112.04 kg Mirian Jallohe [employer] Work Phone: [facility] 11-14-2021 14:35-0400 Diastolic blood pressure 78 mm[Hg] Mirian Hanson [employer] Work Phone: [facility] 11-14-2021 14:35-0400 Heart rate 98 /min Mirian Hanson [employer] Work Phone: [facility] 11-14-2021 14:35-0400 Respiratory rate 18 /min Mirian Hanson [employer] Work Phone: [facility] 11-14-2021 14:35-0400 SaO2% (BldA) [Mass fraction] 96 % Mirian Hanson [employer] Work Phone: [facility] 11-14-2021 14:35-0400 Systolic blood pressure 118 mm[Hg] Mirian Hanson [employer] Work Phone: [facility] 07-19-2021 14:39-0500 Body height 167.6 cm Liz Madison CN P Work Phone: [facility] 07-19-2021 14:39-0500 Body mass index (BMI) [Ratio] 40.35 kg/m2 Liz Madison [employer] Work Phone: [facility] 07-19-2021 14:39-0500 Body weight 113.4 kg Liz Madison CN P Work Phone: [facility] 05-23-2021 15:07-0400 Diastolic blood pressure 75 mm[Hg] Liz Madison [employer] Work Phone: [facility] 05-23-2021 15:07-0400 Heart rate 67 /min Liz Madison CN P Work Phone: [facility] 05-23-2021 15:07-0400 Systolic blood pressure 118 mm[Hg] Liz Madison [employer] Work Phone: [facility] 04-12-2021 10:34-0400 Body height 167.6 cm Gayathri Martinez MD Work Phone: [facility] 04-12-2021 10:34-0400 Body mass index (BMI) [Ratio] 39.72 kg/m2 Gayathri Martinez MD Work Phone: [facility] 04-12-2021 10:34-0400 Body weight 111.63 kg Gayathri Martienz MD Work Phone: [facility] 04-12-2021 10:34-0400 Diastolic blood pressure 68 mm[Hg] Gayathri Martinez MD Work Phone: [facility] 04-12-2021 10:34-0400 Heart rate 91 /min Gayathri Martinez MD Work Phone: [facility] 04-12-2021 10:34-0400 SaO2% (BldA) [Mass fraction] 98 % Gayathri Martinez MD Work Phone: [facility] 04-12-2021 10:34-0400 Systolic blood pressure 108 mm[Hg] Gayathri Martinez MD Work Phone: [facility] 03-31-2021 14:32-0400 Body height 170.2 cm Freeman Dandy Tender [employer] Work Phone: [facility] 03-31-2021 14:32-0400 Body mass index (BMI) [Ratio] 39 kg/m2 Freeman Dandy Tender [employer] Work Phone: [facility] 03-31-2021 14:32-0400 Body weight 112.95 kg Freeman Castleford [employer] Work Phone: [facility] 03-31-2021 14:32-0400 Diastolic blood pressure 71 mm[Hg] Freeman Dandy Tender [employer] Work Phone: [facility] 03-31-2021 14:32-0400 Heart rate 79 /min Freeman Dandy Tender [employer] Work Phone: [facility] 03-31-2021 14:32-0400 SaO2% (BldA) [Mass fraction] 96 % Freeman Dandy Tender [employer] Work Phone: [facility] 03-31-2021 14:32-0400 Systolic blood pressure 104 mm[Hg] Freeman Dandy Tender [employer] Work Phone: [facility] 03-02-2021 15:03-0400 Body height 170.2 cm Marika Ortega [employer] Work Phone: [facility] 03-02-2021 15:03-0400 Body mass index (BMI) [Ratio] 39.8 kg/m2 Marika Ortega [employer] Work Phone: [facility] 03-02-2021 15:03-0400 Body temperature 98.49 [degF] Marika Ortega [employer] Work Phone: [facility] 03-02-2021 15:03-0400 Body weight 115.26 kg Marika Ortega [employer] Work Phone: [facility] 03-02-2021 15:03-0400 Diastolic blood pressure 72 mm[Hg] Marika Ortega [employer] Work Phone: [facility] 03-02-2021 15:03-0400 Heart rate 76 /min Marika Ortega [employer] Work Phone: [facility] 03-02-2021 15:03-0400 Respiratory rate 16 /min Marika Ortega [employer] Work Phone: [facility] 03-02-2021 15:03-0400 SaO2% (BldA) [Mass fraction] 97 % Marika Ortega [employer] Work Phone: [facility] 03-02-2021 15:03-0400 Systolic blood pressure 103 mm[Hg] Marika Ortega [employer] Work Phone: [facility] 01-23-2021 15:31-0400 Body height 170.2 cm Marika Ortega [employer] Work Phone: [facility] 01-23-2021 15:31-0400 Body mass index (BMI) [Ratio] 39.19 kg/m2 Marika Ortega [employer] Work Phone: [facility] 01-23-2021 15:31-0400 Body temperature 97.81 [degF] Marika Ortega [employer] Work Phone: [facility] 01-23-2021 15:31-0400 Body weight 113.49 kg Marika Ortega [employer] Work Phone: [facility] 01-23-2021 15:31-0400 Diastolic blood pressure 81 mm[Hg] Marika Ortega [employer] Work Phone: [facility] 01-23-2021 15:31-0400 Heart rate 91 /min Marika Ortega [employer] Work Phone: [facility] 01-23-2021 15:31-0400 Respiratory rate 16 /min Marika Ortega [employer] Work Phone: [facility] 01-23-2021 15:31-0400 SaO2% (BldA) [Mass fraction] 96 % Marika Ortega [employer] Work Phone: [facility] 01-23-2021 15:31-0400 Systolic blood pressure 116 mm[Hg] Marika Orteag [employer] Work Phone: [facility] 11-14-2020 07:51-0400 BMI (Body Mass Index) 37.9 kg/m2 Lizyane Wallace [facility] 11-14-2020 07:51-0400 Body weight 109.77 kg Liz [facility] 11-14-2020 07:51-0400 BP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 Subsequent hospital visit by physician Marika Ortega Work Phone: [facility] Ultrasound Comment on above: Hypothyroidism, unsp ecified type Start: 06-05-2019 End: 06-05-2019 Office outpatient visit 15 minutes Marika Ortega Work Phone: [facility] Comment on above: Hypothyroidism, unsp ecified type (Primary Dx); Hypokalemia Start: 02-19-2019 End: 02-19-2019 Emergency department patient visit David Prieto Pk Work Phone: [facility] Emergency Department Comment on above: Abrasion of left cor uma, initial encounter (Primary Dx) Start: 12-09-2018 End: 12-09-2018 Emergency department patient visit Jessica Rojas Work Phone: [facility] Emergency Department Comment on above: Viral gastroenteriti s (Primary Dx) Start: 11-10-2018 End: 11-10-2018 Office outpatient visit 15 minutes Marika Ortega Work Phone: [facility] Comment on above: Vagina itching (Prim erick Dx); Skin rash; Current severe episode of major depressive disorder without psychotic features without prior episode (HCC); Hypothyroidism, unspecified type Start: 10-31-2018 End: 10-31-2018 Emergency department patient visit Apolinar Ta Work Phone: [facility] Emergency Department Comment on above: Contusion of left kn ee, initial encounter (Primary Dx); Contusion of right hand, initial encounter Start: 08-28-2018 End: 08-28-2018 Emergency department patient visit Apolinar Ta Facility:[facility] Start: 08-15-2018 Patient encounter procedure Marika Ortega Facility:[facility] Start: 08-15-2018 Patient encounter procedure Marika Ortega Facility:[facility] Start: 08-15-2018 End: 08-15-2018 Office outpatient visit 25 minutes Marika Ortega Work Phone: [facility] Comment on above: Well female exam wit h routine gynecological exam (Primary Dx); Skin rash; Possible exposure to STD; Encounter for lipid screening for cardiovascular disease; Hypothyroidism, unspecified type; Acquired hypothyroidism Start: 08-09-2018 End: 08-09-2018 Emergency department patient visit Octavio Tomlinson Facility:[facility] Start: 06-18-2018 End: 06-18-2018 Emergency department patient visit Inder Jordan Facility:[facility] Start: 02-15-2018 Refill Marika Leggett en [employer] Work Phone: [facility] Comment on above: Hypothyroidism, unsp ecified type Start: 02-14-2018 Patient encounter procedure Marika Ortega Facility:[facility] Start: 02-14-2018 End: 02-14-2018 Patient encounter procedure Marika Lara Ortega Work Phone: [facility] Start: 02-14-2018 End: 02-14-2018 Office outpatient visit 25 minutes Marika Lara Ortega Work Phone: [facility] Start: 01-31-2018 Patient encounter procedure Marikachristopher Ortega Facility:[facility] Start: 01-31-2018 End: 01-31-2018 Ambulatory Marika Lara Ortega Work Phone: [facility] Start: 01-31-2018 End: 01-31-2018 Patient encounter Deborah Vieira [facility] Start: 01-30-2018 Ambulatory Alexandria Holguin Work Phone: [facility] Start: 01-03-2018 End: 01-03-2018 Office/outpatient visit, est, level 3 Marika Lara Ortega Work Phone: [facility] Start: 12-10-2017 End: 12-10-2017 Office/outpatient visit, est, level 3 Marika Lara Ortega Work Phone: [facility] Start: 12-06-2017 Patient encounter procedure Marika Ortega Facility:[facility] Start: 12-06-2017 End: 12-06-2017 Ambulatory Marika Lara Ortega Work Phone: [facility] Start: 12-06-2017 End: 12-06-2017 Office/outpatient visit, est, level 4 Marika Lara Ortega Work Phone: [facility] Start: 10-04-2017 End: 10-05-2017 Ambulatory Jose Vigil Work Phone: [facility]Infant Start: 08-30-2017 End: 08-30-2017 Ambulatory Marika Bermudez Juan Alberto Work Phone: [facility] Start: 08-21-2017 End: 08-21-2017 Ambulatory Marika Lara Ortega Work Phone: [facility] Procedures Date Procedure Procedure Detail Performing Clinician Start: 06-03-2023 Iadna nataliia species direct probe tq Megan Mcmahan MD Work Phone: Start: 05-03-2023 Iadna nataliia species direct probe tq Megan Mcmahan MD Work Phone: Start: 07-13-2022 Urnls dip stick/tablet rgnt auto w/o microscopy Megan Mcmahan MD Work Phone: Start: 07-13-2022 Iadna nataliia species direct probe tq Megan Mcmahan MD Work Phone: Start: 04-12-2022 Iadna nataliia species direct probe tq Marika Ortega [employer] Work Phone: Start: 01-19-2022 Mammography Marielle Palmer MD Work Phone: Start: 11-14-2021 Urnls dip stick/tablet rgnt non-auto w/o micrscp Mirian Hanson [employer] Work Phone: Start: 03-02-2021 Ecg routine ecg w/least 12 lds w/i&r Marika Ortega [employer] Work Phone: Start: 01-23-2021 Iadna chlamydia trachomatis amplified probe tq Marika Ortega [employer] Work Phone: Start: 10-29-2020 X-ray of left knee Martin gutierrez Work Phone: Start: 03-18-2020 Gastrointestinal pathogens DNA and RNA panel - Stool by MANAS with non-probe detection Marika Ortega Work Phone: Start: 03-17-2020 X-ray of left knee Leonid Echols Work Phone: Start: 03-10-2020 Fibrin dgradj products d-dimer quantitative [facility] Start: 03-10-2020 Basic metabolic panel calcium ionized [facility] Start: 03-10-2020 Prothrombin time [facility] Start: 03-10-2020 Blood count complete auto&auto difrntl wbc Leonid Echols Work Phone: Start: 09-21-2019 Radex elbow complete minimum 3 views Martin Nation Work Phone: Start: 07-17-2019 Assay of thyroid stimulating hormone tsh Clarence Whitley Work Phone: Start: 07-17-2019 CBC, EDIF, PLATELET Clarence Whitley Work Phone: Start: 07-17-2019 Comprehensive metabolic panel Clarence Ac Co llins Work Phone: Start: 07-17-2019 INFLUENZA A AND B, PCR Clarence Whitley Work Phone: Start: 07-17-2019 Choriogonadotropin ( test) [Presence] in Urine Clarence Whitley Work Phone: Start: 07-17-2019 Urinalysis microscopic only Clarence Ac César ins Work Phone: Start: 07-17-2019 URINALYSIS, MACRO Clarence Whitley Work Phone: Start: 06-26-2019 End: 06-26-2019 Colonoscopy Self Self Start: 06-19-2019 Ultrasonography of head and neck Marika Ortega Work Phone: Start: 12-09-2018 Basic metabolic panel calcium total [facility] Start: 12-09-2018 Blood count complete auto&auto difrntl wbc Jessica Rojas Work Phone: Start: 11-10-2018 Thyrotropin [Units/volume] in Serum or Plasma by Detection limit <= 0.005 mIU/L Marika Ortega Work Phone: Start: 11-10-2018 Thyroxine (T4) free [Mass/volume] in Serum or Plasma Marika Ortega Work Phone: Start: 10-31-2018 Radex wrist complete minimum 3 views Apolinar Childressreary Work Phone: Start: 10-31-2018 X-ray of left knee Apolinar Childressreary Work Phone: Start: 08-15-2018 Microscopic observation [Identifier] in Cervix by Cyto stain Apolinar Cely Start: 02-14-2018 End: 02-14-2018 Bx skin subcutaneous&/mucous membrane 1 lesion Marika Ortega Work Phone: Plan of Treatment Date Care Activity Detail Author Start: 06-26-2029 Screening for malignant neoplasm of colon [facility] Start: 10-31-2028 Tetanus vaccination [facility] Start: 04-12-2025 Influenza vaccination Influenza Vaccine (Season Ended) [facility] Start: 02-09-2025 COVID-19 Vaccine ( season) COVID-19 Vaccine () [facility] Comment on above: Postponed from 04/12/2023 (Treatment Not Available) Start: 02-05-2025 History and physical examination, annual for health maintenance Wellness Visit [facility] Start: 02-05-2025 Pneumococcal Vaccine: Ped or At-Risk (1 of 2 - PCV) Pneumococcal Vaccine: Ped or At-Risk (1 of 2 - PCV) [facility] Comment on above: Postponed from 1980 (Patient Refus ed) Start: 2024 Administration of herpes zoster vaccine Zoster Vaccines (1 of 2) [facility] Start: 2024 Screening for malignant neoplasm of colon Flexible sigmoidoscopy [facility] Start: 04-12-2024 COVID-19 Vaccine ( season) COVID-19 Vaccine ( season) [facility] Start: 04-12-2024 COVID-19 Vaccine ( season) COVID-19 Vaccine ( season) [facility] Start: 04-12-2024 Influenza vaccination [facility] Start: 02-06-2024 End: 02-06-2024 Patient encounter procedure 02/06/2024 3:20 PM EDT Office Visit [facility] [address] [facility] [place] [address] Marika Otrega, [employer] [address] [facility] [address] [place] [id number] [facility] Start: 09-27-2023 End: 09-27-2023 Patient encounter procedure 09/27/2023 9:00 AM EST Office Visit [facility] Obstetrics and Gynecology [address] [place] [phone] Megan Mcmahan MD [address] [place] [phone] [facility] Start: 07-26-2023 End: 07-26-2023 Telemedicine consultation with patient 07/26/2023 3:15 PM EST Telemedicine Telephone [facility]etric[facility] Gynecology [address] [place] [phone] Megan Mcmahan MD [address] [place] [address] [facility] Start: 04-25-2023 End: 04-25-2023 Patient encounter procedure 04/25/2023 9:00 AM EDT Office Visit [facility] [address] [facility] [address] [place] [phone] Megan Mcmahan MD [address] Zayas [address] [place] [phone] [facility] Start: 04-12-2023 COVID-19 Vaccine ( season) COVID-19 Vaccine ( season) [facility] Start: 04-12-2023 Depression screening using PHQ-9 (Patient Health Questionnaire 9) score Depression Screening/Follow-Up (PHQ-2/9) [facility] Start: 04-12-2023 Influenza vaccination [facility] Start: 02-09-2023 Depression Remission Assessment (PHQ9) Depression Remission Assessment (PHQ9) [facility] Start: 01-19-2023 Screening for malignant neoplasm of breast Mammogram [facility] Start: 12-27-2022 COVID-19 Vaccine (#1) COVID-19 Vaccine (#1) [facility] Comment on above: Postponed from 1979 (Patient Refus ed) Postponed from 03/25 (Patient Refused) Start: 12-27-2022 History and physical examination, annual for health maintenance Wellness Visit [facility] Start: 12-20-2022 End: 12-20-2022 Patient encounter procedure 12/20/2022 3:00 PM EDT Initial consult [facility]ne[facility] [address] [facility] [address] [place] [phone] Mary Padgett MD [address] [place] [address] [facility] Physician [facility] Obstetrics and Gynecology Start: 11-23-2022 End: 11-23-2022 Patient encounter procedure 11/23/2022 Office Visit Primary Care Marika Ortega, [employer] [address] [place] [id number] [facility] Start: 11-15-2022 End: 11-15-2022 Patient encounter procedure 11/15/2022 Initial consult Obstetrics and Gynecology Mary Padgett MD [address] [place] [address] [facility] Physician [facility] Obstetrics [facility] Gynecology Start: 10-12-2022 End: 10-12-2022 Patient encounter procedure 10/12/2022 Office Visit Obstetrics and Gynecology Megan Mcmahan MD [address] [address] [facility] Obstetrics [facility] Gynecology Start: 04-12-2022 End: 04-12-2022 Patient encounter procedure 04/12/2022 Office Visit Primary Care Marika Ortega, [employer] [address] [place] [address] [facility] Start: 04-12-2022 Influenza vaccination [facility] Start: 04-06-2022 End: 04-06-2022 Patient encounter procedure 04/06/2022 Office Visit Primary Care Marika Ortega, [employer] [address] [place] [phone] [facility] Start: 02-07-2022 End: 02-07-2022 Follow-up encounter 02/07/2022 Follow-Up Sports Medicine Marielle Palmer MD [address] [place] [address] [facility] Start: 01-26-2022 End: 01-26-2022 Admission to same day surgery center 01/26/2022 Surgery Marielle Palmer MD [address] [place] [address] Left knee arthroscopy partial medial meniscectomy [facility] Comment on above: Left knee arthroscopy partial medial men iscectomy Start: 01-26-2022 End: 01-26-2022 ARTHROSCOPY KNEE WITH OR WITHOUT MENISECTOMY ARTHROSCOPY KNEE WITH OR WITHOUT MENISECTOMY Complex tear of medial meniscus of left knee, unspecified whether old or current tear, subsequent encounter 01/26/2022 7:20 AM EDT [facility] Main OR Start: 01-26-2022 Subsequent hospital visit by physician 01/26/2022 Hospital Encounter Marielle Palmer MD [address] [place] [address] [facility] Start: 01-19-2022 End: 01-19-2022 Patient encounter procedure 01/19/2022 Appointment Radiology Marika Ortega, [employer] [address] [place] [phone] [facility] Mammography Start: 01-18-2022 End: 01-18-2022 Patient encounter procedure 01/18/2022 Surgical Consult Sports Medicine Marielle Palmer MD [address] [place] [phone] [facility] Start: 01-02-2022 End: 01-02-2022 Patient encounter procedure 01/02/2022 Appointment Radiology Mirian Hanson, JULIA [address] [place] [id number] [facility] [address] Scan Start: 12-31-2021 Depression Remission Assessment (PHQ9) Depression Remission Assessment (PHQ9) [facility] Start: 12-27-2021 End: 12-27-2021 Patient encounter procedure 12/27/2021 Office Visit Primary Care Marika Ortega, JULIA [address] [place] [id number] [facility] Start: 12-08-2021 End: 12-08-2021 Patient encounter procedure 12/08/2021 Office Visit Primary Care Marika Ortega CNP [address] [place] [id number] [facility] Start: 10-28-2021 Hepatitis C antibody, confirmatory test Hepatitis C Screening [facility] Comment on above: Postponed from 1992 (Patient Refus ed) Start: 10-28-2021 Hepatitis C screening Hepatitis C Screening [facility] Comment on above: Postponed from 1992 (Patient Refus ed) Start: 10-28-2021 HIV screening HIV Screening [facility] Comment on above: Postponed from 1989 (Patient Refus ed) Start: 10-28-2021 Screening for malignant neoplasm of breast Mammogram [facility] Comment on above: Postponed from 2014 (Patient Refus ed) Start: 10-28-2021 Screening mammography Mammogram [facility] [facility] Comment on above: Postponed from 1974 (Patient Refus ed) Postponed from 09/25 (Patient Refused) Start: 10-06-2021 History and physical examination, annual for health maintenance Wellness Visit [facility] Start: 09-15-2021 End: 09-15-2021 Admission to same day surgery center 09/15/2021 Surgery Marielle Palmer MD [address] [place] [address] Left knee arthroscopy partial medial meniscectomy [facility] Comment on above: Left knee arthroscopy partial medial men iscectomy Start: 09-15-2021 End: 09-15-2021 ARTHROSCOPY KNEE WITH OR WITHOUT MENISECTOMY ARTHROSCOPY KNEE WITH OR WITHOUT MENISECTOMY Complex tear of medial meniscus of left knee, unspecified whether old or current tear, subsequent encounter 09/15/2021 7:20 AM EST [facility] Start: 09-15-2021 Subsequent hospital visit by physician 09/15/2021 Hospital Encounter Marielle Palmer MD [address] [place] [address] [facility] Start: 09-11-2021 End: 09-11-2021 Patient encounter procedure 09/11/2021 Office Visit Lab Marielle Palmer MD [address] [place] [address] [facility] Start: 08-31-2021 End: 08-31-2021 Patient encounter procedure 08/31/2021 Surgical Consult Sports Medicine Marielle Palmer MD [address] [place] [address] [facility] Start: 08-29-2021 End: 08-29-2021 Patient encounter procedure 08/29/2021 Office Visit Primary Care Marika Ortega, JULIA [address] [place] [address] [facility] Start: 08-21-2021 End: 08-21-2021 Patient encounter procedure 08/21/2021 Office Visit Otolaryngology Gayathri Martinez MD [address] [place] [address] [facility] Start: 08-16-2021 End: 08-16-2021 Patient encounter procedure 08/16/2021 Office Visit Otolaryngology Gayathri Martinez MD [address] [place] [address] [facility] Start: 08-15-2021 Screening for malignant neoplasm of cervix PAP SMEAR [facility] Start: 07-28-2021 End: 07-28-2021 Patient encounter procedure 07/28/2021 Office Visit Primary Care Marika Ortega CNP [address] [place] [address] [facility] Start: 07-12-2021 End: 07-12-2021 Patient encounter procedure 07/12/2021 Appointment Radiology Liz Wallace, [employer] [address] [place] [address] [facility] Start: 05-23-2021 End: 05-23-2021 Patient encounter procedure 05/23/2021 Office Visit Sports Medicine Liz Wallace, [employer] [address] [place] [address] [facility] Orth[facility] Medicine Start: 05-11-2021 End: 05-11-2021 Admission to same day surgery center 05/11/2021 Surgery Gayathri Martinez MD [address] [place] [address] microsuspension laryngoscopy with vocal cord lesion right lesion (polyp) excision [facility] Comment on above: microsuspension laryngoscopy with vocal cord lesion right lesion (polyp) excision Start: 05-11-2021 End: 05-11-2021 LARYNGOSCOPY DIRECT LARYNGOSCOPY DIRECT Lesion of vocal cord 05/11/2021 10:30 AM EDT [facility] Start: 05-11-2021 Subsequent hospital visit by physician 05/11/2021 Hospital Encounter Gayathri Martinez MD [address] [place] [address] [facility] Start: 05-09-2021 End: 05-09-2021 Documentation procedure 05/09/2021 Scanned Document Otolaryngology Gayathri Martinez MD [address] [place] [address] [facility] Start: 05-09-2021 End: 05-09-2021 Admission to same day surgery center 05/09/2021 Surgery Gayathri Martinez MD [address] [place] [address] microsuspension laryngoscopy with vocal cord lesion right lesion (polyp) excision [facility] Comment on above: microsuspension laryngoscopy with vocal cord lesion right lesion (polyp) excision Start: 05-09-2021 End: 05-09-2021 LARYNGOSCOPY DIRECT LARYNGOSCOPY DIRECT Lesion of vocal cord 05/09/2021 7:25 AM EDT [facility] Start: 05-09-2021 Subsequent hospital visit by physician 05/09/2021 Hospital Encounter Gayathri Martinez MD [address] [place] [address] [facility] Start: 05-05-2021 End: 05-05-2021 Patient encounter procedure 05/05/2021 Office Visit Lab Gayathri Martinez MD [address] [place] [address] [facility] Start: 04-28-2021 End: 04-28-2021 Patient encounter procedure 04/28/2021 Office Visit Pre-Admission Testing Gayathri Martinez MD [address] [place] [address] [facility] Preadmission Testing Start: 04-24-2021 End: 04-24-2021 Patient encounter procedure 04/24/2021 Office Visit Sports Medicine Liz Wallace, [employer] [address] [place] [address] [facility] Start: 04-12-2021 Influenza vaccination [facility] Start: 04-12-2021 End: 04-12-2021 Patient encounter procedure 04/12/2021 Office Visit Otolaryngology Gayathri Martinez MD [address] [place] [address] [facility] Start: 02-08-2021 Influenza vaccination given Sequential Influenza Vaccine (#1) [facility] Comment on above: Postponed from 04/12/2020 (Patient Refus ed) Start: 12-26-2020 End: 12-26-2020 Office Visit 12/26/2020 Office Visit Sports Medicine Liz Wallace, [employer] [address] [place] [address] [phone] [facility] Start: 11-21-2020 Depression Remission Assessment (PHQ9) Depression Remission Assessment (PHQ9) [facility] Start: 10-06-2020 End: 10-06-2020 Office Visit 10/06/2020 Office Visit Primary Care Marika Ortega, [employer] [address] [facility] [place] [address] [phone] [facility] Start: 06-17-2020 End: 06-17-2020 Office Visit 06/17/2020 Office Visit Primary Care Marika Ortega CNP [address] [place] [address] [phone] [facility] Start: 04-12-2020 Influenza vaccination given [facility] Start: 03-18-2020 End: 03-18-2020 Office Visit 03/18/2020 Office Visit Primary Care Marika Ortega, JULIA [address] [place] [address] [phone] [facility] Start: 12-04-2019 End: 12-04-2019 Office Visit 12/04/2019 Office Visit Primary Care Marika Ortega CNP [address] [place] [address] [phone] [facility] Start: 05-15-2019 End: 05-15-2019 Office Visit 05/15/2019 Office Visit Primary Care Marika Ortega CNP [address] [place] [address] [phone] [facility] Start: 04-12-2019 Influenza vaccination INFLUENZA VACCINE (#1) [facility] Start: 04-12-2019 Influenza vaccination given SEQUENTIAL INFLUENZA VACCINE (#1) [facility] Start: 10-10-2018 End: 10-10-2018 Ambulatory 10/10/2018 Office Visit Primary Care Marika Ortega CNP [address] [place] [address] [phone] [facility] Start: 04-12-2018 Influenza vaccination [facility] Start: 04-12-2018 Influenza vaccination given SEQUENTIAL INFLUENZA VACCINE (#1) [facility] Start: 04-04-2018 End: 04-04-2018 Ambulatory 04/04/2018 Office Visit Primary Care Marika Ortega, JULIA [address] [place] [address] [phone] [facility] Start: 02-14-2018 End: 02-14-2018 Ambulatory 02/14/2018 Procedure visit Primary Care Marika Ortegaa, [employer] [address] [place] [address] [phone] [facility] Start: 01-17-2018 End: 01-03-2019 Thyroxine (T4) free T4, Free Routine Acquired hypothyroidism Expected: 01/17/2018, Expires: 01/03/2019 [facility] Start: 01-17-2018 End: 01-03-2019 TSH TSH Routine Acquired hypothyroidism Expected: 01/17/2018, Expires: 01/03/2019 [facility] Start: 01-03-2018 End: 01-03-2018 Ambulatory 01/03/2018 Office Visit Primary Care OrtegaMarika Lara, [employer] [address] [place] [address] [phone] [facility] Start: 10-25-2017 Ambulatory 10/25/2017 Follow-Up Obstetrics and Gynecology Jose Vigil MD [address] [facility] [address] [place] [address] [phone] [facility] Start: 10-04-2017 Ambulatory [facility] Start: 08-22-2017 Ambulatory 08/22/2017 Office Visit Obstetrics and Gynecology Jose Vigil MD [address] [facility] [address] [place] [address] [phone] [facility] Start: 04-12-2017 Influenza vaccination SEQUENTIAL INFLUENZA VACCINE (#1) [facility] Work Phone: Start: 2014 Fasting lipid profile LIPID SCREENING [facility] Start: 2014 Screening for malignant neoplasm of breast Mammogram [facility] Start: 2014 Screening mammography MAMMOGRAM SCREENING DISCUSSION [facility] Start: 1995 Screening for malignant neoplasm of cervix PAP SMEAR DISCUSSION [facility] Start: 1993 Pneumococcal Vaccine: Age 50+ (1 of 2 - PCV) Pneumococcal Vaccine: Age 50+ (1 of 2 - PCV) [facility] Start: 1993 Third diphtheria, tetanus and acellular pertussis (DTaP) vaccination TDAP (ADULT) [facility] Start: 1992 Hepatitis C antibody, confirmatory test Hepatitis C Screening [facility] Start: 1992 Hepatitis C screening Hepatitis C Screening [facility] Start: 1992 Tetanus vaccination TETANUS [facility] Start: 1990 COVID-19 Vaccine (1 of 2) COVID-19 Vaccine (1 of 2) [facility] Start: 1990 COVID-19 Vaccine (1) COVID-19 Vaccine (1) [facility] Start: 1989 HIV screening HIV Screening [facility] Start: 1987 HIV screening HIV SCREENING DISCUSSION [facility] Start: 1986 COVID-19 Vaccine (1) COVID-19 Vaccine (1) [facility] Start: 1980 Pneumococcal Vaccine: Ped or At-Risk (1 - PCV) Pneumococcal Vaccine: Ped or At-Risk (1 - PCV) [facility] Start: 1980 Pneumococcal Vaccine: Ped or At-Risk (1 of 2 - PCV) Pneumococcal Vaccine: Ped or At-Risk (1 of 2 - PCV) [facility] Start: 1979 COVID-19 Vaccine (1) COVID-19 Vaccine (1) [facility] Start: 1977 History and physical examination, annual for health maintenance Wellness Visit [facility] Start: 03-25-1975 COVID-19 Vaccine (#1) COVID-19 Vaccine (#1) [facility] Start: 1974 Depression screening using PHQ-9 (Patient Health Questionnaire 9) score DEPRESSION SCREENING (PHQ9) [facility] Start: 1974 Protein mass conc Mammogram [facility] Start: 1974 Screening for malignant neoplasm of cervix PAP SMEAR [facility] Work Phone: Start: 1974 Screening for malignant neoplasm of colon [facility] Start: 1974 Screening mammography Mammogram [facility] Start: 1974 Tetanus vaccination TETANUS EVERY 10 YR [facility] Work Phone: Start: 1974 TSH Qn TSH [facility] ARTHROSCOPY KNEE WIT H OR WITHOUT MENISECTOMY ARTHROSCOPY KNEE WITH OR WITHOUT MENISECTOMY Complex tear of medial meniscus of left knee, unspecified whether old or current tear, subsequent encounter [facility] ARTHROSCOPY KNEE WIT H OR WITHOUT MENISECTOMY ARTHROSCOPY KNEE WITH OR WITHOUT MENISECTOMY Complex tear of medial meniscus of left knee, unspecified whether old or current tear, subsequent encounter [facility] End: 07-13-2023 Bacteria identified in Unspecified specimen by Aerobe culture Urine culture Microbiology Routine Malodorous urine 1 Occurrences starting 07/13/2022 until 07/13/2023 [facility] Work Phone: Comment on above: 1 Occurrences starting 07/13/2022 until 07/13/2023 Bacteria identified in Unspecified specimen by Aerobe culture Urine culture Microbiology Routine Malodorous urine 07/13/2022 3:24 PM EST [facility] End: 08-15-2019 Chlamydia trachomatis rRNA assay Chlamydia/GC/Trichomonas Amplified RNA Routine Possible exposure to STD 1 Occurrences starting 08/15/2018 until 08/15/2019 [facility] Comment on above: 1 Occurrences starting 08/15/2018 until 08/15/2019 Complete blood count with white cell differential, automated CBC Auto Differential Routine Well female exam with routine gynecological exam Ordered: 08/15/2018 [facility] Comment on above: Ordered: 08/15/2018 End: 08-15-2019 Complete blood count with white cell differential, manual CBC and Differential Routine Well female exam with routine gynecological exam 1 Occurrences starting 08/15/2018 until 08/15/2019 [facility] Comment on above: 1 Occurrences starting 08/15/2018 until 08/15/2019 End: 01-21-2021 Complete blood count with white cell differential, manual CBC and Differential Lab Routine Hypothyroidism, unspecified type 1 Occurrences starting 01/22/2020 until 01/21/2021 [facility] Comment on above: 1 Occurrences starting 01/22/2020 until 01/21/2021 End: 12-27-2022 Complete blood count with white cell differential, manual CBC and Differential Lab Routine Hypothyroidism, unspecified type 1 Occurrences starting 12/27/2021 until 12/27/2022 [facility] Comment on above: 1 Occurrences starting 12/27/2021 until 12/27/2022 End: 02-05-2025 Complete blood count with white cell differential, manual CBC and Differential Lab Routine Hypothyroidism, unspecified type Elevated fasting glucose 1 Occurrences starting 02/06/2024 until 02/05/2025 [facility] Comment on above: 1 Occurrences starting 02/06/2024 until 02/05/2025 End: 12-01-2023 Complete PFT with Pre and Post Bronchodilator Complete PFT with Pre and Post Bronchodilator PFT Routine SOB (shortness of breath) Asthma, unspecified asthma severity, unspecified whether complicated, unspecified whether persistent 1 Occurrences starting 11/30/2022 until 12/01/2023 [facility] Work Phone: Comment on above: 1 Occurrences starting 11/30/2022 until 12/01/2023 End: 08-15-2019 Comprehensive metabolic 2000 panel Comprehensive Metabolic Panel Routine Well female exam with routine gynecological exam 1 Occurrences starting 08/15/2018 until 08/15/2019 [facility] Comment on above: 1 Occurrences starting 08/15/2018 until 08/15/2019 End: 06-05-2020 Comprehensive metabolic 2000 panel Comprehensive Metabolic Panel Lab Routine Hypokalemia 1 Occurrences starting 06/05/2019 until 06/05/2020 [facility] Comment on above: 1 Occurrences starting 06/05/2019 until 06/05/2020 End: 01-21-2021 Comprehensive metabolic 2000 panel Comprehensive Metabolic Panel Lab Routine Hypothyroidism, unspecified type 1 Occurrences starting 01/22/2020 until 01/21/2021 [facility] Comment on above: 1 Occurrences starting 01/22/2020 until 01/21/2021 End: 12-27-2022 Comprehensive metabolic 2000 panel - Serum or Plasma Comprehensive Metabolic Panel Lab Routine Hypothyroidism, unspecified type 1 Occurrences starting 12/27/2021 until 12/27/2022 [facility] Comment on above: 1 Occurrences starting 12/27/2021 until 12/27/2022 End: 02-05-2025 Comprehensive metabolic 2000 panel - Serum or Plasma Comprehensive Metabolic Panel Lab Routine Hypothyroidism, unspecified type Elevated fasting glucose 1 Occurrences starting 02/06/2024 until 02/05/2025 [facility] Work Phone: Comment on above: 1 Occurrences starting 02/06/2024 until 02/05/2025 End: 11-14-2022 CT of urinary tract CT Kidney Stone Imaging Routine Acute left flank pain 1 Occurrences starting 11/14/2021 until 11/14/2022 [facility] Work Phone: Comment on above: 1 Occurrences starting 11/14/2021 until 11/14/2022 End: 06-05-2020 Free T4 [Mass/Vol] T4, Free Lab Routine Hypothyroidism, unspecified type 1 Occurrences starting 06/05/2019 until 06/05/2020 [facility] Comment on above: 1 Occurrences starting 06/05/2019 until 06/05/2020 End: 01-21-2021 Free T4 [Mass/Vol] T4, Free Lab Routine Hypothyroidism, unspecified type 1 Occurrences starting 01/22/2020 until 01/21/2021 [facility] Comment on above: 1 Occurrences starting 01/22/2020 until 01/21/2021 Genital microscopy, culture and sensitivities Genital Aerobic Culture Routine Possible exposure to STD Ordered: 08/15/2018 [facility] Comment on above: Ordered: 08/15/2018 End: 02-05-2025 Hemoglobin A1c/Hemoglobin.total in Blood Hemoglobin A1c Lab Routine Elevated fasting glucose 1 Occurrences starting 02/06/2024 until 02/05/2025 [facility] Comment on above: 1 Occurrences starting 02/06/2024 until 02/05/2025 End: 05-03-2024 Hepatitis C antibody measurement Hepatitis C Antibody Lab Routine Screening examination for STD (sexually transmitted disease) 1 Occurrences starting 05/03/2023 until 05/03/2024 [facility] Comment on above: 1 Occurrences starting 05/03/2023 until 05/03/2024 End: 05-03-2024 Human immunodeficiency virus antibody test HIV Antibody (HIV1/HIV2) Lab Routine Screening examination for STD (sexually transmitted disease) 1 Occurrences starting 05/03/2023 until 05/03/2024 [facility] Work Phone: Comment on above: 1 Occurrences starting 05/03/2023 until 05/03/2024 LARYNGOSCOPY DIRECT LARYNGOSCOPY DIRECT Lesion of vocal cord [facility] End: 08-15-2019 Lipid 1996 panel Lipid Panel Routine Encounter for lipid screening for cardiovascular disease 1 Occurrences starting 08/15/2018 until 08/15/2019 [facility] Comment on above: 1 Occurrences starting 08/15/2018 until 08/15/2019 End: 01-21-2021 Lipid 1996 panel Lipid Panel Lab Routine Hypothyroidism, unspecified type 1 Occurrences starting 01/22/2020 until 01/21/2021 [facility] Comment on above: 1 Occurrences starting 01/22/2020 until 01/21/2021 End: 12-27-2022 Lipid 1996 panel - Serum or Plasma Lipid Panel Lab Routine Hypothyroidism, unspecified type 1 Occurrences starting 12/27/2021 until 12/27/2022 [facility] Comment on above: 1 Occurrences starting 12/27/2021 until 12/27/2022 End: 02-05-2025 Lipid 1996 panel - Serum or Plasma Lipid Panel Lab Routine Hypothyroidism, unspecified type Elevated fasting glucose 1 Occurrences starting 02/06/2024 until 02/05/2025 [facility] Comment on above: 1 Occurrences starting 02/06/2024 until 02/05/2025 End: 02-26-2023 MG Breast - bilateral Screening Mammography Screening Bill Bilateral Imaging Routine Screening mammogram for breast cancer 1 Occurrences starting 12/27/2021 until 02/26/2023 [facility] Work Phone: Comment on above: 1 Occurrences starting 12/27/2021 until 02/26/2023 End: 04-07-2025 MG Breast - bilateral Screening Mammography Screening Bill Bilateral Imaging Routine Screening mammogram for breast cancer 1 Occurrences starting 02/06/2024 until 04/07/2025 [facility] Comment on above: 1 Occurrences starting 02/06/2024 until 04/07/2025 Microscopic examinat ion of vaginal Papanicolaou smear Thinprep Pap Smear Routine Well female exam with routine gynecological exam Ordered: 08/15/2018 [facility] Comment on above: Ordered: 08/15/2018 POC , Urine POC Pregnan cy, Urine STAT 10/04/2017 8:50 AM EST [facility] End: 04-12-2022 SARS-CoV-2 (COVID-19) RdRp gene [Presence] in Respiratory specimen by MANAS with probe detection COVID-19, Molecular Microbiology Routine Screening for viral disease Lesion of vocal cord 1 Occurrences starting 04/12/2021 until 04/12/2022 [facility] Work Phone: Comment on above: 1 Occurrences starting 04/12/2021 until 04/12/2022 End: 08-09-2022 SARS-CoV-2 (COVID-19) RdRp gene [Presence] in Respiratory specimen by MANAS with probe detection COVID-19, Molecular Microbiology Routine Exposure to SARS-associated coronavirus 1 Occurrences starting 08/13/2021 until 08/09/2022 [facility] Work Phone: Comment on above: 1 Occurrences starting 08/13/2021 until 08/09/2022 End: 08-15-2019 T4 free mass conc T4, Free Routine Hypothyroidism, unspecified type 1 Occurrences starting 08/15/2018 until 08/15/2019 [facility] Comment on above: 1 Occurrences starting 08/15/2018 until 08/15/2019 End: 01-23-2022 Thyrotropin [Units/volume] in Serum or Plasma TSH Lab Routine Hypothyroidism, unspecified type 1 Occurrences starting 01/23/2021 until 01/23/2022 [facility] Comment on above: 1 Occurrences starting 01/23/2021 until 01/23/2022 End: 12-27-2022 Thyrotropin [Units/volume] in Serum or Plasma TSH Lab Routine Hypothyroidism, unspecified type 1 Occurrences starting 12/27/2021 until 12/27/2022 [facility] Comment on above: 1 Occurrences starting 12/27/2021 until 12/27/2022 End: 02-05-2025 Thyrotropin [Units/volume] in Serum or Plasma TSH Lab Routine Hypothyroidism, unspecified type 1 Occurrences starting 02/06/2024 until 02/05/2025 [facility] Comment on above: 1 Occurrences starting 02/06/2024 until 02/05/2025 End: 08-15-2019 Thyrotropin Qn TSH Routine Hypothyroidism, unspecified type 1 Occurrences starting 08/15/2018 until 08/15/2019 [facility] Comment on above: 1 Occurrences starting 08/15/2018 until 08/15/2019 End: 12-06-2018 Thyroxine (T4) free T4, Free Routine Hypothyroidism, unspecified type 1 Occurrences starting 12/06/2017 until 12/06/2018 [facility] End: 01-23-2022 Thyroxine (T4) free [Mass/volume] in Serum or Plasma T4, Free Lab Routine Hypothyroidism, unspecified type 1 Occurrences starting 01/23/2021 until 01/23/2022 [facility] Comment on above: 1 Occurrences starting 01/23/2021 until 01/23/2022 End: 12-27-2022 Thyroxine (T4) free [Mass/volume] in Serum or Plasma T4, Free Lab Routine Hypothyroidism, unspecified type 1 Occurrences starting 12/27/2021 until 12/27/2022 [facility] Comment on above: 1 Occurrences starting 12/27/2021 until 12/27/2022 End: 02-05-2025 Thyroxine (T4) free [Mass/volume] in Serum or Plasma T4, Free Lab Routine Hypothyroidism, unspecified type 1 Occurrences starting 02/06/2024 until 02/05/2025 [facility] Comment on above: 1 Occurrences starting 02/06/2024 until 02/05/2025 Tissue Exam [facility] End: 05-03-2024 Treponema pallidum IgG Ab [Presence] in Serum Syphilis Antibody Lab Routine Screening examination for STD (sexually transmitted disease) 1 Occurrences starting 05/03/2023 until 05/03/2024 [facility] Comment on above: 1 Occurrences starting 05/03/2023 until 05/03/2024 End: 12-06-2018 TSH TSH Routine Hypothyroidism, unspecified type 1 Occurrences starting 12/06/2017 until 12/06/2018 [facility] End: 06-05-2020 TSH Qn TSH Lab Routine Hypothyroidism, unspecified type 1 Occurrences starting 06/05/2019 until 06/05/2020 [facility] Comment on above: 1 Occurrences starting 06/05/2019 until 06/05/2020 End: 01-21-2021 TSH Qn TSH Lab Routine Hypothyroidism, unspecified type 1 Occurrences starting 01/22/2020 until 01/21/2021 [facility] Comment on above: 1 Occurrences starting 01/22/2020 until 01/21/2021 End: 06-05-2020 Ultrasonography of head and neck US Soft Tissue Neck Imaging Routine Hypothyroidism, unspecified type 1 Occurrences starting 06/05/2019 until 06/05/2020 [facility] Comment on above: 1 Occurrences starting 06/05/2019 until 06/05/2020 End: 12-06-2018 XR Hand Right 3+ Views (Standard) XR Hand Right 3+ Views (Standard) Routine Pain of right thumb 1 Occurrences starting 12/06/2017 until 12/06/2018 [facility] Immunizations Immunization Date Immunization Notes Care Provider Kelvin dinero 10-31-2018 diphtheria, tetanus toxoids and acellular pertussis vaccine, unspecified formulation Apolinar Ta [facility] 10-31-2018 tetanus toxoid, redu royal diphtheria toxoid, and acellular pertussis vaccine, adsorbed Apolinar Christiansenary [facility] Payers Date Payer Category Payer Medicaid [id number] 2020 Medicaid [id number] 2020 Medicaid [id number] 2020 Medicaid (Managed Care) [facility] [id number] 2020 Medicaid [id number] 2019 Worker's Compensation [id number] 2018 Worker's Compensation [employer] [id number] 10/30/2018-Present [id number] 10-30-2018 Worker's Compensation [id number] 10-30-2018 Worker's Compensation 1.2.84 [id number] 07-12-2016 Unknown [id number] 3 07-12-2016 Unknown [id number] 1974 Unknown [id number] 2.16.840.1.498828.3.579.2 .900 1974 Unknown [id number] 2.16.840.1.390261.3.579.2 .900 1974 Unknown [id number] 2.16.840.1.867865.3.579.2 .903 1974 Unknown [id number] 2.16.840.1.532770.3.579.2 .903 1974 Unknown [id number] 2.16.840.1.152703.3.579.2 .903 1974 Unknown [id number] 2.16.840.1.774270.3.579.2 .903 1974 Unknown [id number] 2.16.840.1.469956.3.579.2 .903 1974 Unknown [id number] 2.16.840.1.200200.3.579.2 .903 1974 Unknown [id number] 2.16.840.1.715072.3.579.2 .902 1974 Unknown [id number] 2.16.840.1.879095.3.579.2 .902 1974 Unknown [id number] 2.16.840.1.245900.3.579.2 .902 Self-pay [id number] Unknown [id number] 3 Worker's Compensation [employer] xxxxxxxxx Effective for all dates xxxxxxxxx [id number] Social History Date Type Detail Facility Start: 01-03-2018 End: 02-06-2024 Tobacco smoking status NHIS Former smoker [facility] Work Phone: End: 10-04-2009 History of tobacco use Current smoker [facility] Start: 1975 Sex Assigned At Not on file [facility] Work Phone: Start: 10-04-2017 End: 12-27-2021 Tobacco Comment 1 pack per week for 5 years-- quit 2009 [facility] Start: 06-09-2019 End: 02-09-2024 Alcohol intake Current non-drinker of alcohol (finding) [facility] Start: 06-26-2019 End: 07-16-2019 Tobacco smoking status NHIS Never smoker [facility] Start: 11-04-2021 End: 12-19-2022 Exposure to SARS-CoV-2 (event) Not sure [facility] Start: 03-18-2020 End: 04-12-2022 History SDOH Social Connections Get Together 2 [facility] Start: 03-18-2020 End: 03-02-2021 History SDOH Food Worry 3 [facility] Start: 03-23-2020 End: 02-06-2024 Tobacco use and exposure Never used [facility] Start: 03-02-2021 History SDOH Social Connections Get Together 1 [facility] End: 10-04-2009 History of tobacco use Cigarette Smoker [facility] Start: 12-27-2021 End: 02-06-2024 Cigarette pack-years [facility] Start: 10-26-2022 Tobacco Comment Did it because of stress [facility] Start: 04-12-2022 End: 02-06-2024 Social connection and isolation panel [facility] Frequency of Communication with Friends and Family Not on file [facility] (I/We) worried maryse er (my/our) food would run out before (I/we) got money to buy more. Sometimes true [facility] Start: 08-15-2018 Gender identity Identifies as female gender (finding) [facility] Start: 08-15-2018 Sexual orientation Heterosexual (finding) [facility] How hard is it for y ou to pay for the very basics like food, housing, medical care, and heating Very hard [facility] (I/We) worried maryse er (my/our) food would run out before (I/we) got money to buy more. Often true [facility] Clinical Notes 01-31-2021 to 05-05-2025 Telephone Encounter - Tara Cox LPN - 12/02/2024 4:12 PM EDTTelephone Encounter - Tara Cox LPN - 12/02/2024 4:12 PM EDTTelephone Encounter - Tara Cox LPN - 12/02/2024 4:12 PM EDT Note Date & Type Note Facility 05-05-2025 Note HNO ID: [id number] Author: MARTIR FISHER MD Service: ? 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 Neda is a 49 year old No obstetric history on file. who presents for an annual gynecologic exam without complaints. Age at Menarche: 11-12 years Still get period: No Pt reported hysterectomy with ovaries intact 2016 Sexually active: No Contraception: Other Hysterectomy Contraception frequency: Always HPV vaccine: No HPV:Pt reported unknown Last pap smear: unknown History of abnormal pap: Pt reported unknown Last mammogram: Pt reported 2022 normal [facility] Last sexual contact: 12 mo OB History No obstetric history on file. 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 No bloating, early satiety, indigestion, or increased flatulence. Bladder: No dysuria, gross hematuria, urinary frequency, urinary urgency, or incontinence. Breast: No breast lumps, nipple d/c, overlying skin changes, redness or skin retraction. Allergies and current medication updated:Yes SENSITIVE EXAM: The sensitive examination was discussed with the Patient or Patient's Authorized Stewardesses Teacher. As applicable, any other physician, advance practice provider, medical student, or other health professional student that will be observing or involved in the sensitive examination for educational or training purposes was discussed with the Patient or Authorized Stewardesses Teacher. The Patient or Authorized Stewardesses Teacher has agreed to proceed with the sensitive examination. (Sensitive examination includes inspection and/or palpation of the breasts, pelvis, prostate and anorectal regions). EXAM: There were no vitals taken for this visit. GENERAL: pleasant, female in mild distress HEENT: Normocephalic, atraumatic, mucus membranes moist, and no lesions NECK: Supple, full range of motion, no adenopathy, and thyroid normal DERMATOLOGY: Normal, without lesions, non-icteric, and non-hirsute BREAST: soft, non-tender, symmetric, no dominant mass, normal nipple-areolar complex, no lymphadenopathy, and no nipple discharge CHEST: Normal inspiratory effort ABDOMEN: soft, non-tender, and no masses PELVIC: external genitalia normal, normal Bartholin's glands, urethra, Okay's glands, no vulvar lesions, no cervical lesions, good vaginal support, physiologic discharge present, normal appearing perineal body and perianal region, well estrogenized, cervix surgically absent BIMANUAL: no adnexal masses, non-tender, and uterus surgically absent RECTOVAGINAL: deferred. NEURO: alert and oriented x3,exam grossly non-focal EXTREMITIES: normal ASSESSMENT/PLAN: 1) Health maintenance: Mammogram ordered. 3) STD screening: Declined STI check. 4) Follow up one year or sooner as needed Martir Fisher MD [facility] 12-02-2024 Telephone encounter Note Phone call to patient and advised Marika Ortega CNP has always prescribed the 10 mg of cetirizine and the change in size of pill could be due to pharmacy using a different nipple threader. Verbalized understanding. Patient was also updated that she is due to be seen in office. Patient reports she has moved to [place] and will be establishing with a new PCP and needed refill to get through until she can establish. Will update provider. No further needs at this time. [facility] 12-02-2024 Telephone encounter Note ----- Message from Valeri Baker sent at 12/02/2024 3:45 PM EDT ----- Regarding: cetirizine (ZYRTEC) 10 MG tablet Patient states she had a higher MG. It worked better. Wanted to know why it was decreased. Also has not been using inhaler, not working. [facility] 12-02-2024 Miscellaneous Notes Phone call to patient and advised Marika Ortega CNP has always prescribed the 10 mg of cetirizine and the change in size of pill could be due to pharmacy using a different nipple threader. Verbalized understanding. Patient was also updated that she is due to be seen in office. Patient reports she has moved to [place] and will be establishing with a new PCP and needed refill to get through until she can establish. Will update provider. No further needs at this time. ----- Message from Valeri Baker sent at 12/02/2024 3:45 PM EDT ----- Regarding: cetirizine (ZYRTEC) 10 MG tablet Patient states she had a higher MG. It worked better. Wanted to know why it was decreased. Also has not been using inhaler, not working. Last office visit 02/06/2024. No future appointments scheduled. I did call and talked to patient to advise her she is due for an appointment. She states she now lives in [place] and is looking to establish with someone there. She is asking if PCP will refill one more time for her? ----- Message from Valeri Baker sent at 12/02/2024 3:43 PM EDT ----- Regarding: Refill Patient calling for refill on her thyroid medication levothyroxine (SYNTHROID, LEVOTHROID) 88 MCG tablet. Attempted to warm transfer to [facility] . Unable to get through. documented in this encounter [facility] 12-02-2024 Telephone encounter Note Last office visit 02/06/2024. No future appointments scheduled. I did call and talked to patient to advise her she is due for an appointment. She states she now lives in [place] and is looking to establish with someone there. She is asking if PCP will refill one more time for her? [facility] 12-02-2024 Telephone encounter Note ----- Message from Valeri Baker sent at 12/02/2024 3:43 PM EDT ----- Regarding: Refill Patient calling for refill on her thyroid medication levothyroxine (SYNTHROID, LEVOTHROID) 88 MCG tablet. Attempted to warm transfer to [employer] . Unable to get through. [facility] 04-24-2024 Telephone encounter Note Neda is requesting a refill for Requested Prescriptions Pending Prescriptions Disp Refills albuterol 90 mcg/actuation inhaler 6.7 g 2 Sig: Inhale 2 (two) puffs every 4 to 6 hours as needed for wheezing . cetirizine (ZYRTEC) 10 MG tablet 90 tablet 1 Sig: Take 1 (one) tablet (10 mg total) by mouth daily . levothyroxine (SYNTHROID, LEVOTHROID) 88 MCG tablet 90 tablet 1 Sig: Take 1 (one) tablet (88 mcg total) by mouth every morning . omeprazole (PRILOSEC) 40 MG capsule 90 capsule 3 Sig: Take 1 (one) capsule (40 mg total) by mouth daily . Last refill: 02/06/24 albuterol 90 mcg/actuation inhaler 01/17/24 cetirizine (ZYRTEC) 10 MG tablet levothyroxine (SYNTHROID, LEVOTHROID) 88 MCG tablet 07/23/23 omeprazole (PRILOSEC) 40 MG capsule Last appt: 02/06/24 Annual Exam Upcoming appt (when is it due or is it scheduled): None Scheduled Please send to [facility] [address] [place], [place] [address] [place] [id number] Follow up: Refill pending for review without additional follow up based on information above. [facility] 04-24-2024 Miscellaneous Notes Neda is requesting a refill for Requested Prescriptions Pending Prescriptions Disp Refills albuterol 90 mcg/actuation inhaler 6.7 g 2 Sig: Inhale 2 (two) puffs every 4 to 6 hours as needed for wheezing . cetirizine (ZYRTEC) 10 MG tablet 90 tablet 1 Sig: Take 1 (one) tablet (10 mg total) by mouth daily . levothyroxine (SYNTHROID, LEVOTHROID) 88 MCG tablet 90 tablet 1 Sig: Take 1 (one) tablet (88 mcg total) by mouth every morning . omeprazole (PRILOSEC) 40 MG capsule 90 capsule 3 Sig: Take 1 (one) capsule (40 mg total) by mouth daily . Last refill: 02/06/24 albuterol 90 mcg/actuation inhaler 01/17/24 cetirizine (ZYRTEC) 10 MG tablet levothyroxine (SYNTHROID, LEVOTHROID) 88 MCG tablet 07/23/23 omeprazole (PRILOSEC) 40 MG capsule Last appt: 02/06/24 Annual Exam Upcoming appt (when is it due or is it scheduled): None Scheduled Please send to [facility] [address] [place], [place] [address] [place] [address] Follow up: Refill pending for review without additional follow up based on information above. documented in this encounter [facility] 02-09-2024 Evaluation + Plan note Associated Problem(s): Screening mammogram for breast cancer It is time to get your Mammogram done. Please call and schedule your appointment. [facility] ( [facility]) [address] [place] [id number] [facility] 02-09-2024 Evaluation + Plan note Associated Problem(s): Well adult exam Doing well, denies complaints at this time. Health maintenance updated and reviewed with patient. It is recommended that you complete at least 150 minutes of cardiovascular activity weekly. [facility] 02-09-2024 Miscellaneous Notes Associated Problem(s): Screening mammogram for breast cancer It is time to get your Mammogram done. Please call and schedule your appointment. [facility] ( [facility]) [address] [place] [id number] Associated Problem(s): Well adult exam Doing well, denies complaints at this time. Health maintenance updated and reviewed with patient. It is recommended that you complete at least 150 minutes of cardiovascular activity weekly. Associated Problem(s): Elevated fasting glucose Hemoglobin A1c currently 5.4%, this is a 3 month average of your glucose levels. I would like your A1c to be less than 7%. Please continue to take medications as ordered as you are doing well on these medications. Continue to monitor your carb intake as well as work on increasing activity to at least 150 minutes of cardiovascular activity weekly. Associated Problem(s): Hypothyroidism As discussed within your appointment today, you are doing well on levothyroxine. I would like you to continue to take your medication(s) as ordered. If medication refills are needed, they have been sent to your pharmacy. documented in this encounter [facility] 02-09-2024 Evaluation + Plan note Associated Problem(s): Elevated fasting glucose Hemoglobin A1c currently 5.4%, this is a 3 month average of your glucose levels. I would like your A1c to be less than 7%. Please continue to take medications as ordered as you are doing well on these medications. Continue to monitor your carb intake as well as work on increasing activity to at least 150 minutes of cardiovascular activity weekly. [facility] 02-09-2024 Evaluation + Plan note Associated Problem(s): Hypothyroidism As discussed within your appointment today, you are doing well on levothyroxine. I would like you to continue to take your medication(s) as ordered. If medication refills are needed, they have been sent to your pharmacy. [facility] 02-06-2024 History of Present illness Narrative Images from the original note were not included. OUTPATIENT WELL ADULT PROGRESS NOTE Neda Lawrence is a 48 y.o. female and is here for a preventative care visit. Patient's medical and surgical history was updated, as well as family's medical history. Health maintenance was reviewed and updated Patient is a female with a past medical history of Patient Active Problem List Diagnosis Hypothyroidism Nummular dermatitis Mixed anxiety depressive disorder Localized edema Urinary incontinence Family history of colon cancer Well adult exam Chest pain Lesion of vocal cord Morbid obesity with BMI of 40.0-44.9, adult (HCC) Screening mammogram for breast cancer Elevated fasting glucose SOB (shortness of breath) Asthma-chronic obstructive pulmonary disease overlap syndrome (HCC) who presents to the office today for a well adult exam. Patient is doing well and denies complaints at this time. Subjective: Elevated fasting glucose chronic fasting glucose 85 Diet/exercise no formal diet, minimal activity Lab Results Component Value Date HGBA1C 5.4 11/30/2022 denies polyuria, polydipsia, and polyphagia Thyroid Problem Presents for follow-up visit. Symptoms include leg swelling. Patient reports no anxiety, cold intolerance, constipation, diarrhea, fatigue, heat intolerance, palpitations, tremors, weight gain or weight loss. The symptoms have been stable. Past treatments include levothyroxine. The treatment provided significant relief. There are no known risk factors. Health Maintenance reviewed - labs and mammogram ordered. OBGYN HX - OB History 3 Para 2 Term 2 AB 1 Living 2 SAB 1 IAB Ectopic Multiple Live Births 2 No LMP recorded (lmp unknown). Patient has had a hysterectomy. Patient has periods (heavy, regular, painful): not applicable Sexually active ( control): not currently Any breast concerns? denies Health Maintenance Due Topic Date Due Wellness Visit 12/27/2022 Mammogram 01/19/2023 Health Maintenance Topic Date Due Pap Smear Discontinued Last Pap completed 08/2018, Pap normal, HPV not tested Mammogram Due Date or Overdue Date Topic Date Due Mammogram 01/19/2023 Last Mammogram completed 01/2022, BiRads 1 The following portions of the patient's history were reviewed and updated as appropriate: allergies, current medications, past family history, past medical history, past social history, past surgical history and problem list. Past Medical History: Diagnosis Date Anemia Anxiety Arthritis 2020 Asthma last inhaler use years ago Complication of anesthesia COPD with asthma (HCC) 12/07/2022 Depression Endometriosis Maureen-Mccullough infection GERD (gastroesophageal reflux disease) Hypothyroidism 2016 still adjusting dose Obesity (BMI 30.0-34.9) PONV (postoperative nausea and vomiting) due to eating prior to surgery Seizures (HCC) one as a child Varicose veins of legs ?? varicose veins Past Surgical History: Procedure Laterality Date ARHTROSCOPY KNEE WITH OR WITHOUT MENISECTOMY Left 01/26/2022 Procedure: Left knee arthroscopy partial medial meniscectomy; Surgeon: Marielle Palmer MD; Location: Main OR; Service: Orthopedic CT COLONOSCOPY 06/26/2019 CT COLONOSCOPY HYSTERECTOMY (CERVIX REMAINS) HYSTERECTOMY (CERVIX REMOVED) All i have left is my ovaries HYSTERECTOMY TOTAL LAPAROSCOPIC ROBOTIC ASSISTED SI N/A 10/04/2017 Procedure: ROBOTIC ASSISTED TOTAL ABDOMINAL HYSTERECTOMY BILATERAL SALPINGECTOMY; Surgeon: Jose Vigil MD; [place] [facility] [place]; Service: [employer] PA[employer] HYSTEROSCOPY LAPAROSCOPY age 19s endometriosis LARYNGOSCOPY DIRECT Right 05/11/2021 Procedure: microsuspension laryngoscopy with vocal cord lesion right lesion (polyp) excision; Surgeon: Gayathri Martinez MD; Location: Main OR; Service: Otolaryngology Social History Socioeconomic History Marital status: Tobacco Use Smoking status: Former Current packs/day: 0.00 Types: Cigarettes Quit date: 10/04/2009 Years since quittin.3 Smokeless tobacco: Never Tobacco comments: Did it because of stress Vaping Use Vaping status: Never Used Substance and Sexual Activity Alcohol use: No Drug use: No Sexual activity: Not Currently Partners: Female control/protection: Condom, Surgical Comment: Robotic hysterectomy Social Determinants of Health Financial Resource Strain: High Risk (02/06/2024) Overall Financial Resource Strain (CARDIA) Difficulty of Paying Living Expenses: Very hard Food Insecurity: Food Insecurity Present (02/06/2024) Hunger Vital Sign Worried About Running Out of Food in the Last Year: Often true Ran Out of Food in the Last Year: Often true Transportation Needs: No Transportation Needs (02/06/2024) PRAPARE - Transportation Lack of Transportation (Medical): No Lack of Transportation (Non-Medical): No Social Connections: Unknown (04/12/2022) Social Connection and Isolation Panel [NHANES] Frequency of Social Gatherings with Friends and Family: Once a week Family History Problem Relation Age of Onset Kidney disease Mother Rectal cancer Father No Known Problems Sister No Known Problems Brother Colon cancer Paternal Grandfather Surgical complications Neg Hx Anesthesia problems Neg Hx Heart disease Neg Hx Clotting disorder Neg Hx Deep vein thrombosis Neg Hx Pulmonary embolism Neg Hx Breast cancer Neg Hx Allergies Allergen Reactions Amoxicillin Hydrocortisone Itching Penicillin G Causes yeast infection Latex Rash Contact dermatitis Past Surgical History: Procedure Laterality Date ARHTROSCOPY KNEE WITH OR WITHOUT MENISECTOMY Left 01/26/2022 Procedure: Left knee arthroscopy partial medial meniscectomy; Surgeon: Marielle Palmer MD; Location: Main OR; Service: Orthopedic CT COLONOSCOPY 06/26/2019 CT COLONOSCOPY HYSTERECTOMY (CERVIX REMAINS) HYSTERECTOMY (CERVIX REMOVED) All i have left is my ovaries HYSTERECTOMY TOTAL LAPAROSCOPIC ROBOTIC ASSISTED SI N/A 10/04/2017 Procedure: ROBOTIC ASSISTED TOTAL ABDOMINAL HYSTERECTOMY BILATERAL SALPINGECTOMY; Surgeon: Jose Vigil MD; [place] [facility] [place]; 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 CONJUGATED ESTROGENS (PREMARIN) VAGINAL CREAM Insert 0.5 (one-half) g into the vagina daily Daily for two weeks followed by twice weekly . A pea size amount when applying internally . IBUPROFEN (ADVIL,MOTRIN) 600 MG TABLET Take 1 (one) tablet (600 mg total) by mouth every 6 (six) hours as needed for pain . LEVOTHYROXINE (SYNTHROID, LEVOTHROID) 88 MCG TABLET Take 1 (one) tablet (88 mcg total) by mouth every morning . OMEPRAZOLE (PRILOSEC) 40 MG CAPSULE Take 1 (one) capsule (40 mg total) by mouth daily . Modified Medications Modified Medication Previous Medication ALBUTEROL 90 MCG/ACTUATION INHALER albuterol 90 mcg/actuation inhaler Inhale 2 (two) puffs every 4 to 6 hours as needed for wheezing . Inhale 2 (two) puffs every 4 to 6 hours as needed for wheezing . Discontinued Medications PAROXETINE (PAXIL) 10 MG TABLET Take 0.5 (one-half) tablet (5 mg total) by mouth daily . Objective: BP 118/82 (BP Location: Right arm, Patient Position: Sitting, BP Cuff Size: X-large Adult) Pulse 78 Temp 98.3 F (36.8 C) (Temporal) Resp 16 Ht 5' 6 Wt 127.5 kg (281 lb) LMP (LMP Unknown) SpO2 95% BMI 45.35 kg/m Review of Systems Review of Systems Constitutional: Negative for activity change, appetite change, chills, fatigue, fever, weight gain and weight loss. HENT: Negative for congestion, drooling and mouth sores. Eyes: Negative for discharge, redness and itching. Respiratory: Negative for apnea, cough, shortness of breath and wheezing. Cardiovascular: Negative for chest pain, palpitations and leg swelling. Gastrointestinal: Negative for abdominal distention, constipation and diarrhea. Endocrine: Negative for cold intolerance and heat intolerance. Genitourinary: Negative for difficulty urinating and flank pain. Musculoskeletal: Negative for gait problem and neck stiffness. Skin: Negative for color change. Neurological: Negative for dizziness, tremors, facial asymmetry, speech difficulty, light-headedness and headaches. Psychiatric/Behavioral: Negative for agitation and behavioral problems. The patient is not nervous/anxious. Vitals: 02/06/24 1533 BP: 118/82 BP Location: Right arm Patient Position: Sitting BP Cuff Size: X-large Adult Pulse: 78 Resp: 16 Temp: 98.3 F (36.8 C) TempSrc: Temporal SpO2: 95% Weight: 127.5 kg (281 lb) Height: 5' 6 Wt Readings from Last 3 Encounters: 02/06/24 127.5 kg (281 lb) 09/27/23 122.5 kg (270 lb) 07/23/23 122.4 kg (269 lb 14.4 oz) Body mass index is 45.35 kg/m . The 10-year ASCVD risk score (Sherlyn CHAVEZ, et al., 2019) is: 1.1% Values used to calculate the score: Age: 48 years Sex: Female Is Non- : No Diabetic: No Tobacco smoker: No Systolic Blood Pressure: 118 mmHg Is BP treated: No HDL Cholesterol: 58 mg/dL Total Cholesterol: 227 mg/dL Physical Exam Physical Exam Vitals and nursing note reviewed. Constitutional: Appearance: Normal appearance. She is well-developed and well-groomed. She is morbidly obese. HENT: Head: Normocephalic. Right Ear: Tympanic membrane, ear canal and external ear normal. Left Ear: Tympanic membrane, ear canal and external ear normal. Nose: Nose normal. Mouth/Throat: Lips: [place]. Mouth: Mucous membranes are moist. Pharynx: Oropharynx is clear. Eyes: General: Lids are normal. Conjunctiva/sclera: Conjunctivae normal. Pupils: Pupils are equal, round, and reactive to light. Neck: Thyroid: No thyroid mass or thyromegaly. Vascular: No carotid bruit or JVD. Cardiovascular: Rate and Rhythm: Normal rate and regular rhythm. Pulses: Normal pulses. Heart sounds: Normal heart sounds. Pulmonary: Effort: Pulmonary effort is normal. Breath sounds: Normal breath sounds. Abdominal: General: Abdomen is flat. Palpations: Abdomen is soft. Musculoskeletal: General: Normal range of motion. Cervical back: Normal range of motion. Lymphadenopathy: Head: Right side of head: No submental, submandibular, tonsillar, preauricular or posterior auricular adenopathy. Left side of head: No submental, submandibular, tonsillar, preauricular or posterior auricular adenopathy. Skin: General: Skin is warm and dry. Capillary Refill: Capillary refill takes less than 2 seconds. Neurological: General: No focal deficit present. Mental Status: She is alert and oriented to person, place, and time. Motor: Motor function is intact. Coordination: Coordination is intact. Gait: Gait is intact. Psychiatric: Attention and Perception: Attention and perception normal. Mood and Affect: Mood and affect normal. Behavior: Behavior normal. Behavior is cooperative. Thought Content: Thought content normal. Cognition and Memory: Cognition normal. Judgment: Judgment normal. Assessment/Plan Problem List Items Addressed This Visit Endocrine Hypothyroidism - Primary As discussed within your appointment today, you are doing well on levothyroxine. I would like you to continue to take your medication(s) as ordered. If medication refills are needed, they have been sent to your pharmacy. Relevant Orders Comprehensive Metabolic Panel CBC and Differential Lipid Panel TSH T4, Free Other Well adult exam Doing well, denies complaints at this time. Health maintenance updated and reviewed with patient. It is recommended that you complete at least 150 minutes of cardiovascular activity weekly. Screening mammogram for breast cancer It is time to get your Mammogram done. Please call and schedule your appointment. [facility] ( [facility]) [address] [place] [id number] Relevant Orders Mammography Screening Bill Bilateral Elevated fasting glucose Hemoglobin A1c currently 5.4%, this is a 3 month average of your glucose levels. I would like your A1c to be less than 7%. Please continue to take medications as ordered as you are doing well on these medications. Continue to monitor your carb intake as well as work on increasing activity to at least 150 minutes of cardiovascular activity weekly. Relevant Orders Comprehensive Metabolic Panel CBC and Differential Lipid Panel Hemoglobin A1c Goals None Electronically signed by: Marika Ortega C.N.P 02/09/24 10:15 AM General Patient Counseling Given: --Nutrition: Stressed importance of moderation in sodium/caffeine intake, saturated fat and cholesterol, caloric balance, sufficient intake of fresh fruits, vegetables, fiber, calcium, iron, and 1 mg of folate supplement per day (for females capable of ). --Exercise: Stressed the importance of regular exercise. --Substance Abuse: Discussed cessation/primary prevention of tobacco, alcohol, or other drug use --Sexuality: Discussed sexually transmitted diseases, partner selection, use of condoms, avoidance of unintended and contraceptive alternatives. --Dental health: Discussed importance of regular dental visits. --Immunizations reviewed.TDaP due every 10 days, Shingles vaccines recommended after the age of 50, Pneumonia vaccines due after the age of 65. --Discussed benefits of screening mammograms, pap smears, Dexa Scan (screening of osteoporosis) and colonoscopy. documented in this encounter [facility] 02-06-2024 Note OUTPATIENT WELL ADUL T PROGRESS NOTE Neda Lawrence is a 48 y.o. female and is here for a preventative care visit. Patient's medical and surgical history was updated, as well as family's medical history. Health maintenance was reviewed and updated Patient is a female with a past medical history of Patient Active Problem List Diagnosis Hypothyroidism Nummular dermatitis Mixed anxiety depressive disorder Localized edema Urinary incontinence Family history of colon cancer Well adult exam Chest pain Lesion of vocal cord Morbid obesity with BMI of 40.0-44.9, adult (HCC) Screening mammogram for breast cancer Elevated fasting glucose SOB (shortness of breath) Asthma-chronic obstructive pulmonary disease overlap syndrome (HCC) who presents to the office today for a well adult exam. Patient is doing well and denies complaints at this time. Subjective: Elevated fasting glucose chronic fasting glucose 85 Diet/exercise no formal diet, minimal activity Lab Results Component Value Date HGBA1C 5.4 11/30/2022 denies polyuria, polydipsia, and polyphagia Thyroid Problem Presents for follow-up visit. Symptoms include leg swelling. Patient reports no anxiety, cold intolerance, constipation, diarrhea, fatigue, heat intolerance, palpitations, tremors, weight gain or weight loss. The symptoms have been stable. Past treatments include levothyroxine. The treatment provided significant relief. There are no known risk factors. Health Maintenance reviewed - labs and mammogram ordered. OBGYN HX - OB History 3 Para 2 Term 2 AB 1 Living 2 SAB 1 IAB Ectopic Multiple Live Births 2 No LMP recorded (lmp unknown). Patient has had a hysterectomy. Patient has periods (heavy, regular, painful): not applicable Sexually active ( control): not currently Any breast concerns? denies Health Maintenance Due Topic Date Due Wellness Visit 12/27/2022 Mammogram 01/19/2023 Health Maintenance Topic Date Due Pap Smear Discontinued Last Pap completed 08/2018, Pap normal, HPV not tested Mammogram Due Date or Overdue Date Topic Date Due Mammogram 01/19/2023 Last Mammogram completed 01/2022, BiRads 1 The following portions of the patient's history were reviewed and updated as appropriate: allergies, current medications, past family history, past medical history, past social history, past surgical history and problem list. Past Medical History: Diagnosis Date Anemia Anxiety Arthritis 2020 Asthma last inhaler use years ago Complication of anesthesia COPD with asthma (HCC) 12/07/2022 Depression Endometriosis Maureen-Mccullough infection GERD (gastroesophageal reflux disease) Hypothyroidism 2016 still adjusting dose Obesity (BMI 30.0-34.9) PONV (postoperative nausea and vomiting) due to eating prior to surgery Seizures (HCC) one as a child Varicose veins of legs ?? varicose veins Past Surgical History: Procedure Laterality Date ARHTROSCOPY KNEE WITH OR WITHOUT MENISECTOMY Left 01/26/2022 Procedure: Left knee arthroscopy partial medial meniscectomy; Surgeon: Marielle Palmer MD; Location: Main OR; Service: Orthopedic CT COLONOSCOPY 06/26/2019 CT COLONOSCOPY HYSTERECTOMY (CERVIX REMAINS) HYSTERECTOMY (CERVIX REMOVED) All i have left is my ovaries HYSTERECTOMY TOTAL LAPAROSCOPIC ROBOTIC ASSISTED SI N/A 10/04/2017 Procedure: ROBOTIC ASSISTED TOTAL ABDOMINAL HYSTERECTOMY BILATERAL SALPINGECTOMY; Surgeon: Jose Vigil MD; [place] [facility] [place]; Service: [employer] HYSTEROSCOPY LAPAROSCOPY age 19s endometriosis LARYNGOSCOPY DIRECT Right 05/11/2021 Procedure: microsuspension laryngoscopy with vocal cord lesion right lesion (polyp) excision; Surgeon: Gayathri Martinez MD; Location: Main OR; Service: Otolaryngology Social History Socioeconomic History Marital status: Tobacco Use Smoking status: Former Current packs/day: 0.00 Types: Cigarettes Quit date: 10/04/2009 Years since quittin.3 Smokeless tobacco: Never Tobacco comments: Did it because of stress Vaping Use Vaping status: Never Used Substance and Sexual Activity Alcohol use: No Drug use: No Sexual activity: Not Currently Partners: Female control/protection: Condom, Surgical Comment: Robotic hysterectomy Social Determinants of Health Financial Resource Strain: High Risk (02/06/2024) Overall Financial Resource Strain (CARDIA) Difficulty of Paying Living Expenses: Very hard Food Insecurity: Food Insecurity Present (02/06/2024) Hunger Vital Sign Worried About Running Out of Food in the Last Year: Often true Ran Out of Food in the Last Year: Often true Transportation Needs: No Transportation Needs (02/06/2024) PRAPARE - Transportation Lack of Transportation (Medical): No Lack of Transportation (Non-Medical): No Social Connections: Unknown (04/12/2022) Social (more content not included)... [facility] 01-17-2024 Telephone encounter Note Neda is requesting a refill for Requested Prescriptions Pending Prescriptions Disp Refills levothyroxine (SYNTHROID, LEVOTHROID) 88 MCG tablet 90 tablet 1 Sig: Take 1 (one) tablet (88 mcg total) by mouth every morning . cetirizine (ZYRTEC) 10 MG tablet 90 tablet 1 Sig: Take 1 (one) tablet (10 mg total) by mouth daily . Last refill for cetirizine (ZYRTEC) 10 MG tablet was : 11/30/2022 Last refill for levothyroxine (SYNTHROID, LEVOTHROID) 88 MCG tablet was : 07/18/2023 Last appt: 11/30/2022 Upcoming appt (when is it due or is it scheduled): 02/06/2024 Please send to [id number] - [place], [place] - [address] [id number] [facility] [phone] Follow up: Refill pending for review without additional follow up based on information above. [facility] 01-17-2024 Miscellaneous Notes Neda is requesting a refill for Requested Prescriptions Pending Prescriptions Disp Refills levothyroxine (SYNTHROID, LEVOTHROID) 88 MCG tablet 90 tablet 1 Sig: Take 1 (one) tablet (88 mcg total) by mouth every morning . cetirizine (ZYRTEC) 10 MG tablet 90 tablet 1 Sig: Take 1 (one) tablet (10 mg total) by mouth daily . Last refill for cetirizine (ZYRTEC) 10 MG tablet was : 11/30/2022 Last refill for levothyroxine (SYNTHROID, LEVOTHROID) 88 MCG tablet was : 07/18/2023 Last appt: 11/30/2022 Upcoming appt (when is it due or is it scheduled): 02/06/2024 Please send to [facility] #[id number] - [address] [id number] Follow up: Refill pending for review without additional follow up based on information above. documented in this encounter [facility] 09-27-2023 History of Present illness Narrative Images from the original note were not included. 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 who presents today for follow up of medication management of perimenopausal symptoms. She states that she believes she needs low estrogen pills but is concerned with the possible side effects from what she heard on TikTok. She also would like to know about wild yam for her menopausal symptoms has she say that it helps quickly. She mentions that she has not been able to take Paxil consistently because of the high demand that her family has of her and it makes her a little sleepy. She denies any vaginal symptoms and has been exercising and dieting and believes she is becoming more toned than previously. Past Medical History: Diagnosis Date Anemia Anxiety Arthritis 2020 Asthma last inhaler use years ago Complication of anesthesia COPD with asthma 12/07/2022 Depression Endometriosis Maureen-Mccullough infection GERD (gastroesophageal reflux disease) Hypothyroidism 2016 still adjusting dose Obesity (BMI 30.0-34.9) PONV (postoperative nausea and vomiting) due to eating prior to surgery Seizures (HCC) one as a child Varicose veins of legs ?? varicose veins Past Surgical History: Procedure Laterality Date ARHTROSCOPY KNEE WITH OR WITHOUT MENISECTOMY Left 01/26/2022 Procedure: Left knee arthroscopy partial medial meniscectomy; Surgeon: Marielle Palmer MD; Location: Main OR; Service: Orthopedic CT COLONOSCOPY 06/26/2019 CT COLONOSCOPY HYSTERECTOMY (CERVIX REMAINS) HYSTERECTOMY (CERVIX REMOVED) All i have left is my ovaries HYSTERECTOMY TOTAL LAPAROSCOPIC ROBOTIC ASSISTED SI N/A 10/04/2017 Procedure: ROBOTIC ASSISTED TOTAL ABDOMINAL HYSTERECTOMY BILATERAL SALPINGECTOMY; Surgeon: Jose Vigil MD; [place] [facility] [place]; Service: [employer] HYSTEROSCOPY LAPAROSCOPY age 19s endometriosis LARYNGOSCOPY DIRECT Right 05/11/2021 Procedure: microsuspension laryngoscopy with vocal cord lesion right lesion (polyp) excision; Surgeon: Gayathri Martinez MD; Location: Main OR; Service: Otolaryngology Allergies Allergen Reactions Amoxicillin Hydrocortisone Itching Penicillin G Causes yeast infection Latex Rash Contact dermatitis The following portions of the patient's history were reviewed and updated as appropriate: allergies, current medications, past family history, past medical history, past social history, past surgical history and problem list. Review of Systems Objective: Physical Exam BP 107/70 Pulse (!) 106 Ht 5' 6 Wt 122.5 kg (270 lb) LMP (LMP Unknown) BMI 43.58 kg/m General: Alert, well nourished, in no apparent distress HEENT: Normocephalic, atraumatic Lungs: No visible distress with breaths Assessment/Plan: Vasomotor Symptoms -Patient counseled on consistent usage of Paxil and the continuation of premarin cream -Discussed with patient about her concerns previously regarding cancer and stroke with oral premarin , Patient counseled on local effect of vaginal premarin medication. -Patient aware that studies have shown that wild yam is ineffective for vasomotor symptoms of menopause but is free to try it if she wishes -All questions and concerns were addressed. Megan Mcmahan MD Obstetrics and Gynecology [facility] [address] [place] [address] documented in this encounter [facility] 07-18-2023 Telephone encounter Note ----- Message from Anai Anders sent at 07/18/2023 9:32 AM EST ----- Regarding: rx refill Contact: self MEDICATION REFILL REQUEST: PCP: Marika Ortega CNP Patient called 07/18/23 and is requesting a medication refill for levothyroxine (SYNTHROID, LEVOTHROID) 88 MCG tablet omeprazole (PRILOSEC) 40 MG capsule. This was confirmed from the current medication list found in the patients chart. Supply Requested: # of days: 90 days Method of receiving: Send to pharmacy Last set of flowsheet rows for OARRS report: OARRS/NARxCHECK Report Received and Assessed: No data found Date controlled substance agreement signed: No data found Date of last drug screen: No data found Functional Assessment: No data found Will this refill be sent to the preferred pharmacy listed below? Yes Preferred pharmacies: [id number] [phone] Pt Call Back Number Work Phone Not on file. Patient call back message sent to the primary care clinical pool. Anai Anders [facility] 07-18-2023 Miscellaneous Notes ----- Message from Anai Anders sent at 07/18/2023 9:32 AM EST ----- Regarding: rx refill Contact: self MEDICATION REFILL REQUEST: PCP: Marika Ortega CNP Patient called 07/18/23 and is requesting a medication refill for levothyroxine (SYNTHROID, LEVOTHROID) 88 MCG tablet omeprazole (PRILOSEC) 40 MG capsule. This was confirmed from the current medication list found in the patients chart. Supply Requested: # of days: 90 days Method of receiving: Send to pharmacy Last set of flowsheet rows for OARRS report: OARRS/NARxCHECK Report Received and Assessed: No data found Date controlled substance agreement signed: No data found Date of last drug screen: No data found Functional Assessment: No data found Will this refill be sent to the preferred pharmacy listed below? Yes Preferred pharmacies: [facility] [id number] [phone] Pt Call Back Number Work Phone Not on file. Patient call back message sent to the primary care clinical pool. Anai Anders documented in this encounter [facility] 06-03-2023 History of Present illness Narrative Images from the original note were not included. 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 who presents today for vaginal discharge and itching. Patient states that she did visit her boyfriend recently and after intercourse where the condom broke she started experiencing vaginal itching and discharge. She states that itching did get back to after using baking soda but she would just like to ensure that she does not have any infections at this time. Past Medical History: Diagnosis Date Anemia Anxiety Arthritis 2020 Asthma last inhaler use years ago Complication of anesthesia COPD with asthma 12/07/2022 Depression Endometriosis Maureen-Mccullough infection GERD (gastroesophageal reflux disease) Hypothyroidism 2016 still adjusting dose Obesity (BMI 30.0-34.9) PONV (postoperative nausea and vomiting) due to eating prior to surgery Seizures (HCC) one as a child Varicose veins of legs ?? varicose veins Past Surgical History: Procedure Laterality Date ARHTROSCOPY KNEE WITH OR WITHOUT MENISECTOMY Left 01/26/2022 Procedure: Left knee arthroscopy partial medial meniscectomy; Surgeon: Marielle Palmer MD; Location: Main OR; Service: Orthopedic HYSTERECTOMY (CERVIX REMAINS) HYSTERECTOMY (CERVIX REMOVED) All i have left is my ovaries HYSTERECTOMY TOTAL LAPAROSCOPIC ROBOTIC ASSISTED SI N/A 10/04/2017 Procedure: ROBOTIC ASSISTED TOTAL ABDOMINAL HYSTERECTOMY BILATERAL SALPINGECTOMY; Surgeon: Jose Vigil MD; [place] [facility] [place]; Service: [employer] HYSTEROSCOPY LAPAROSCOPY age 19s endometriosis LARYNGOSCOPY DIRECT Right 05/11/2021 Procedure: microsuspension laryngoscopy with vocal cord lesion right lesion (polyp) excision; Surgeon: Gayathri Martinez MD; Location: Main OR; Service: Otolaryngology Allergies Allergen Reactions Amoxicillin Hydrocortisone Itching Penicillin G Causes yeast infection Latex Rash Contact dermatitis Objective: Physical Exam BP 108/70 Pulse 76 Ht 5' 6 Wt 122.1 kg (269 lb 3.2 oz) LMP (LMP Unknown) BMI 43.45 kg/m General: Alert, well nourished, in no apparent distress HEENT: Normocephalic, atraumatic Lungs: No visible distress with breaths : VULVA: normal appearing vulva with no masses, tenderness or lesions VAGINA: normal appearing vagina with normal color and discharge, no lesions, no obvious signs of infection CERVIX: normal appearing cervix without discharge or lesions. There is no cervical motion tenderness on bimanual exam. Assessment/Plan: 1. Vaginal discharge - Follow-up vaginitis - Pelvic exam within normal limits with no obvious signs of infection Megan Mcmahan MD Obstetrics and Gynecology [facility] [address] [place] [id number] documented in this encounter [facility] 05-03-2023 History of Present illness Narrative Images from the original note were not included. 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 who presents today for follow up of perimenopausal symptoms. She states that since starting on Paxil she has been feeling better. Her mood has improved, as well as her hot flashes and night sweats. She however continues to have significant vaginal dryness. She states that she had been having some itching for the past few weeks but was so busy she was not able to come in. She additionally mentions that she using multiple different home remedies to lighten vulvar and is unsure whether this may have caused any dryness. She states that she does not insert anything into the vagina only the vulvar region. Past Surgical History: Procedure Laterality Date ARHTROSCOPY KNEE WITH OR WITHOUT MENISECTOMY Left 01/26/2022 Procedure: Left knee arthroscopy partial medial meniscectomy; Surgeon: Marielle Palmer MD; Location: Main OR; Service: Orthopedic HYSTERECTOMY (CERVIX REMAINS) HYSTERECTOMY (CERVIX REMOVED) All i have left is my ovaries HYSTERECTOMY TOTAL LAPAROSCOPIC ROBOTIC ASSISTED SI N/A 10/04/2017 Procedure: ROBOTIC ASSISTED TOTAL ABDOMINAL HYSTERECTOMY BILATERAL SALPINGECTOMY; Surgeon: Jose Vigil MD; [place] [facility]; Service: BAR[employer] HYSTEROSCOPY LAPAROSCOPY age 19s endometriosis LARYNGOSCOPY DIRECT Right 05/11/2021 Procedure: microsuspension laryngoscopy with vocal cord lesion right lesion (polyp) excision; Surgeon: Gayathri Martinez MD; Location: Main OR; Service: Otolaryngology Allergies Allergen Reactions Amoxicillin Hydrocortisone Itching Penicillin G Causes yeast infection Latex Rash Contact dermatitis The following portions of the patient's history were reviewed and updated as appropriate: allergies, current medications, past family history, past medical history, past social history, past surgical history and problem list. Review of Systems Objective: Physical Exam BP 100/64 Pulse 75 Ht 5' 6 (1.676 m) Wt 123.5 kg (272 lb 3.2 oz) LMP (LMP Unknown) BMI 43.93 kg/m General: Alert, well nourished, in no apparent distress HEENT: Normocephalic, atraumatic Lungs: No visible distress with breaths Abdominal: Soft, no visible masses, no skin changes : VULVA: normal appearing vulva with no masses, tenderness or lesions, skin is pigmented however within normal limits VAGINA: normal appearing vagina with normal color and discharge, no lesions CERVIX: normal appearing cervix without discharge or lesions. There is no cervical motion tenderness on bimanual exam. UTERUS: uterus is normal size, shape, consistency and nontender ADNEXA: normal adnexa in size, nontender and no masses. Assessment/Plan: Vasomotor Symptoms -Continue Paxil 5mg daily 2. Vaginal dryness -Trial Premarin cream 3.Vaginal Itching -FU vaginitis -No obvious signs of infection on physical exam Megan Mcmahan MD Obstetrics and Gynecology [facility] [address] [place] [address] documented in this encounter [facility] 01-09-2023 Telephone encounter Note Not sure why sent. Looks like there is a refill on it [facility] 01-09-2023 Miscellaneous Notes Not sure why sent. Looks like there is a refill on it documented in this encounter [facility] 12-07-2022 Evaluation + Plan note Associated Problem(s): SOB (shortness of breath) Today, a Pulmonary Function Test was ordered. This test will help us either diagnose your with asthma or COPD or help us see if your asthma/COPD was worsened. The hospital will contact you to schedule an appointment. When the results return to the office, we will contact you with the them and any recommendations related to treatment that are recommended. [facility] 12-07-2022 Miscellaneous Notes Associated Problem(s): SOB (shortness of breath) Today, a Pulmonary Function Test was ordered. This test will help us either diagnose your with asthma or COPD or help us see if your asthma/COPD was worsened. The hospital will contact you to schedule an appointment. When the results return to the office, we will contact you with the them and any recommendations related to treatment that are recommended. Associated Problem(s): Elevated fasting glucose I have ordered blood work for you to have completed. Please have this completed at your earliest convenience. This blood work will need to be completed while fasting. This means nothing to eat or drink for 10-12 hours prior to having it drawn. You can however, drink water and take medications as ordered during this time. We will contact you with the results when they return to the office. Associated Problem(s): Asthma As discussed within your appointment today, you are doing well on Albuterol. I would like you to continue to take your medication(s) as ordered. If medication refills are needed, they have been sent to your pharmacy. Associated Problem(s): Hypothyroid I have ordered blood work for you to have completed. Please have this completed at your earliest convenience. This blood work will need to be completed while fasting. This means nothing to eat or drink for 10-12 hours prior to having it drawn. You can however, drink water and take medications as ordered during this time. We will contact you with the results when they return to the office. As discussed within your appointment today, you are doing well on levothyroxine. I would like you to continue to take your medication(s) as ordered. If medication refills are needed, they have been sent to your pharmacy. documented in this encounter [facility] 12-07-2022 Evaluation + Plan note Associated Problem(s): Elevated fasting glucose I have ordered blood work for you to have completed. Please have this completed at your earliest convenience. This blood work will need to be completed while fasting. This means nothing to eat or drink for 10-12 hours prior to having it drawn. You can however, drink water and take medications as ordered during this time. We will contact you with the results when they return to the office. T [facility] 12-07-2022 Evaluation + Plan note Associated Problem(s): Asthma As discussed within your appointment today, you are doing well on Albuterol. I would like you to continue to take your medication(s) as ordered. If medication refills are needed, they have been sent to your pharmacy. T [facility] 12-07-2022 Evaluation + Plan note Associated Problem(s): Hypothyroid I have ordered blood work for you to have completed. Please have this completed at your earliest convenience. This blood work will need to be completed while fasting. This means nothing to eat or drink for 10-12 hours prior to having it drawn. You can however, drink water and take medications as ordered during this time. We will contact you with the results when they return to the office. As discussed within your appointment today, you are doing well on levothyroxine. I would like you to continue to take your medication(s) as ordered. If medication refills are needed, they have been sent to your pharmacy. [facility] 11-30-2022 History of Present illness Narrative Images from the original note were not included. OFFICE VISIT PROGRESS NOTE Neda Lawrence is a 47 y.o. female with a past medical history of Patient Active Problem List Diagnosis Hypothyroid Nummular dermatitis Anxiety and depression Localized edema Urinary incontinence Family history of colon cancer Chest pain Lesion of vocal cord Morbid obesity with BMI of 40.0-44.9, adult (HCC) Vaginal odor Elevated fasting glucose SOB (shortness of breath) Asthma who presents to the office today for chronic leg swelling. Elevated fasting glucose chronic fasting glucose 102 Diet/exercise generally unhealthy, minimal activity Lab Results Component Value Date HGBA1C 5.4 11/30/2022 denies polyuria, polydipsia, and polyphagia Thyroid Problem Presents for follow-up visit. Symptoms include leg swelling and weight gain. Patient reports no anxiety, depressed mood, fatigue, hair loss or palpitations. The symptoms have been stable. Past treatments include levothyroxine. The treatment provided significant relief. There are no known risk factors. Asthma There is no cough or shortness of breath. This is a chronic problem. The current episode started more than 1 year ago. The problem occurs every several days. The problem has been waxing and waning. Pertinent negatives include no appetite change, chest pain, headaches, nasal congestion, orthopnea, sore throat or sweats. Her symptoms are aggravated by change in weather, emotional stress and pollen. Her symptoms are alleviated by beta-agonist. She reports significant improvement on treatment. Her past medical history is significant for asthma. Health Maintenance Topic Date Due Pneumococcal Vaccine: Ped or At-Risk (1 - PCV) Never done Wellness Visit 12/27/2022 COVID-19 Vaccine (1) 12/27/2022 (Originally 03/25/1976) Mammogram 01/19/2023 Depression Remission Assessment (PHQ9) 02/09/2023 Sequential Influenza Vaccine (Season Ended) 2023 Tetanus: Every 10yrs 10/31/2028 Colorectal Cancer Screening/Monitoring 06/26/2029 Hepatitis C Screening Discontinued Pap Smear Discontinued HIV Screening Discontinued The following portions of the patient's history were reviewed and updated as appropriate: allergies, current medications and problem list. Family History Problem Relation Age of Onset Kidney disease Mother Rectal cancer Father No Known Problems Sister No Known Problems Brother Colon cancer Paternal Grandfather Surgical complications Neg Hx Anesthesia problems Neg Hx Heart disease Neg Hx Clotting disorder Neg Hx Deep vein thrombosis Neg Hx Pulmonary embolism Neg Hx Breast cancer Neg Hx Social History Socioeconomic History Marital status: Tobacco Use Smoking status: Former Types: Cigarettes Quit date: 10/04/2009 Years since quittin.1 Smokeless tobacco: Never Tobacco comments: Did it because of stress Vaping Use Vaping status: Never Used Substance and Sexual Activity Alcohol use: No Drug use: No Sexual activity: Not Currently Partners: Male control/protection: Condom, Surgical Comment: Robotic hysterectomy Social Determinants of Health Financial Resource Strain: Unknown (04/12/2022) Overall Financial Resource Strain (CARDIA) Difficulty of Paying Living Expenses: Patient refused Food Insecurity: Food Insecurity Present (04/12/2022) Hunger Vital Sign Worried About Running Out of Food in the Last Year: Sometimes true Ran Out of Food in the Last Year: Sometimes true Transportation Needs: No Transportation Needs (04/12/2022) PRAPARE - Transportation Lack of Transportation (Medical): No Lack of Transportation (Non-Medical): No Social Connections: Unknown (04/12/2022) Social Connection and Isolation Panel [NHANES] Frequency of Social Gatherings with Friends and Family: Once a week Past Surgical History: Procedure Laterality Date ARHTROSCOPY KNEE WITH OR WITHOUT MENISECTOMY Left 01/26/2022 Procedure: Left knee arthroscopy partial medial meniscectomy; Surgeon: Marielle Palmer MD; Location: Main OR; Service: Orthopedic HYSTERECTOMY (CERVIX REMAINS) HYSTERECTOMY (CERVIX REMOVED) All i have left is my ovaries HYSTERECTOMY TOTAL LAPAROSCOPIC ROBOTIC ASSISTED SI N/A 10/04/2017 Procedure: ROBOTIC ASSISTED TOTAL ABDOMINAL HYSTERECTOMY BILATERAL SALPINGECTOMY; Surgeon: Jose Vigil MD; [place] [facility]; Service: BARREL PA[employer] HYSTEROSCOPY LAPAROSCOPY age 20s endometriosis LARYNGOSCOPY DIRECT Right 05/11/2021 Procedure: microsuspension laryngoscopy with vocal cord lesion right lesion (polyp) excision; Surgeon: Gayathri Martinez MD; Location: Main OR; Service: Otolaryngology Allergies Allergen Reactions Amoxicillin Hydrocortisone Itching Penicillin G Causes yeast infection Latex Rash Contact dermatitis Patient's Medications New Prescriptions ATORVASTATIN (LIPITOR) 10 MG TABLET Take 1 (one) tablet (10 mg total) by mouth daily . CETIRIZINE (ZYRTEC) 10 MG TABLET Take 1 (one) tablet (10 mg total) by mouth daily . Previous Medications ALBUTEROL 90 MCG/ACTUATION INHALER Inhale 2 (two) puffs every 4 to 6 hours as needed for wheezing . CYANOCOBALAMIN, VITAMIN B-12, (VITAMIN B-12 ORAL) Take by mouth daily . ELDERBERRY FRUIT ORAL Take by mouth daily . FUROSEMIDE (LASIX) 20 MG TABLET Take 1 (one) tablet (20 mg total) by mouth daily as needed (swelling) . LEVOTHYROXINE (SYNTHROID, LEVOTHROID) 88 MCG TABLET Take 1 (one) tablet (88 mcg total) by mouth every morning . OMEPRAZOLE (PRILOSEC) 40 MG CAPSULE Take 1 (one) capsule (40 mg total) by mouth daily . POTASSIUM CHLORIDE 10 MEQ CR TABLET Take 1 (one) tablet (10 mEq total) by mouth daily . Modified Medications No medications on file Discontinued Medications FLUOXETINE (PROZAC) 20 MG CAPSULE Take 1 (one) capsule (20 mg total) by mouth daily . Review of Systems Review of Systems Constitutional: Positive for weight gain. Negative for activity change, appetite change and fatigue. HENT: Negative for sore throat. Respiratory: Negative for cough and shortness of breath. Cardiovascular: Positive for leg swelling. Negative for chest pain and palpitations. Neurological: Negative for dizziness, facial asymmetry, light-headedness and headaches. Psychiatric/Behavioral: Negative for agitation. The patient is not nervous/anxious. Vitals: 11/30/22 1459 BP: 109/77 BP Location: Right arm Patient Position: Sitting BP Cuff Size: X-large Adult Pulse: 93 Resp: 18 Temp: 97.3 F (36.3 C) TempSrc: Temporal SpO2: 97% Weight: 125.2 kg (276 lb 1.6 oz) Height: 5' 6.3 BP Readings from Last 3 Encounters: 11/30/22 109/77 10/26/22 109/72 07/13/22 130/81 Wt Readings from Last 3 Encounters: 11/30/22 125.2 kg (276 lb 1.6 oz) 10/26/22 125.3 kg (276 lb 3.2 oz) 07/13/22 119.7 kg (264 lb) Body mass index is 44.16 kg/m . Physical Exam Physical Exam Vitals reviewed. Constitutional: Appearance: Normal appearance. She is well-developed. She is morbidly obese. HENT: Head: Normocephalic. Right Ear: External ear normal. Left Ear: External ear normal. Nose: Nose normal. Eyes: General: Lids are normal. Cardiovascular: Rate and Rhythm: Normal rate and regular rhythm. Heart sounds: Normal heart sounds. Pulmonary: Effort: Pulmonary effort is normal. Breath sounds: Normal breath sounds. Musculoskeletal: General: Normal range of motion. Skin: General: Skin is warm and dry. Neurological: General: No focal deficit present. Mental Status: She is alert and oriented to person, place, and time. Coordination: Coordination is intact. Gait: Gait is intact. Psychiatric: Attention and Perception: Attention normal. Mood and Affect: Mood normal. Speech: Speech normal. Behavior: Behavior normal. Behavior is cooperative. Thought Content: Thought content normal. Cognition and Memory: Cognition normal. Judgment: Judgment normal. OARRS/NARxCHECK Report Received and Assessed: No data found Date controlled substance agreement signed: No data found Date of last drug screen: No data found Functional Assessment: No data found Assessment/Plan Problem List Items Addressed This Visit Endocrine Hypothyroid - Primary I have ordered blood work for you to have completed. Please have this completed at your earliest convenience. This blood work will need to be completed while fasting. This means nothing to eat or drink for 10-12 hours prior to having it drawn. You can however, drink water and take medications as ordered during this time. We will contact you with the results when they return to the office. As discussed within your appointment today, you are doing well on levothyroxine. I would like you to continue to take your medication(s) as ordered. If medication refills are needed, they have been sent to your pharmacy. Relevant Orders Comprehensive Metabolic Panel (Completed) CBC and Differential (Completed) Lipid Panel (Completed) TSH (Completed) T4, Free (Completed) Iron Study with Ferritin (Completed) B12/Folate (Completed) Respiratory Asthma As discussed within your appointment today, you are doing well on Albuterol. I would like you to continue to take your medication(s) as ordered. If medication refills are needed, they have been sent to your pharmacy. Relevant Medications cetirizine (ZYRTEC) 10 MG tablet Other Relevant Orders Complete PFT with Pre and Post Bronchodilator Other Elevated fasting glucose I have ordered blood work for you to have completed. Please have this completed at your earliest convenience. This blood work will need to be completed while fasting. This means nothing to eat or drink for 10-12 hours prior to having it drawn. You can however, drink water and take medications as ordered during this time. We will contact you with the results when they return to the office. Relevant Orders Hemoglobin A1c (Completed) SOB (shortness of breath) Today, a Pulmonary Function Test was ordered. This test will help us either diagnose your with asthma or COPD or help us see if your asthma/COPD was worsened. The hospital will contact you to schedule an appointment. When the results return to the office, we will contact you with the them and any recommendations related to treatment that are recommended. Relevant Orders Complete PFT with Pre and Post Bronchodilator Goals None For any new medications prescribed today, patient was educated about indications for the medication, how to take the medication and potential side effects of the medications. Electronically signed by: Marika Ortega C.N.P 12/07/22 1:13 PM documented in this encounter [facility] 10-26-2022 History of Present illness Narrative Images from the original note were not included. 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 who presents today for follow up of stress incontinence. She states that she has not been able to implement all the lifestyle modifications as planned due to her busy schedule with her grand children. She did do the Kegel exercises but was on able to try timed voiding and schedule her pelvic floor physical therapy. With Kegel exercises alone her symptoms have had no improvement. She is now interested in surgery as she is unable to do conservative management. Past Medical History: Diagnosis Date Anemia Anxiety Arthritis 2020 Asthma last inhaler use years ago Complication of anesthesia Depression Endometriosis Maureen-Mccullough infection GERD (gastroesophageal reflux disease) Hypothyroidism 2016 still adjusting dose Obesity (BMI 30.0-34.9) PONV (postoperative nausea and vomiting) due to eating prior to surgery Seizures (HCC) one as a child Varicose veins of legs ?? varicose veins Past Surgical History: Procedure Laterality Date ARHTROSCOPY KNEE WITH OR WITHOUT MENISECTOMY Left 01/26/2022 Procedure: Left knee arthroscopy partial medial meniscectomy; Surgeon: Marielle Palmer MD; Location: Main OR; Service: Orthopedic HYSTERECTOMY (CERVIX REMAINS) HYSTERECTOMY (CERVIX REMOVED) All i have left is my ovaries HYSTERECTOMY TOTAL LAPAROSCOPIC ROBOTIC ASSISTED SI N/A 10/04/2017 Procedure: ROBOTIC ASSISTED TOTAL ABDOMINAL HYSTERECTOMY BILATERAL SALPINGECTOMY; Surgeon: Jose Vigil MD; [place] [facility] [place] [facility] [place]; Service: [employer] HYSTEROSCOPY LAPAROSCOPY age 20s endometriosis LARYNGOSCOPY DIRECT Right 05/11/2021 Procedure: microsuspension laryngoscopy with vocal cord lesion right lesion (polyp) excision; Surgeon: Gayathri Martinez MD; Location: Main OR; Service: Otolaryngology Allergies Allergen Reactions Amoxicillin Hydrocortisone Itching Penicillin G Causes yeast infection Latex Rash Contact dermatitis Objective: Physical Exam BP 109/72 Pulse 91 Wt 125.3 kg (276 lb 3.2 oz) LMP (LMP Unknown) BMI 44.13 kg/m General: Alert, well nourished, in no apparent distress HEENT: Normocephalic, atraumatic Lungs: No visible distress with breaths Assessment/Plan: 1. Stress Urinary Incontinence -Failed conservative management -Discuss Suprapubic sling and patient is interested -Will refer to Dr.Mc Ward for procedure Megan Mcmahan MD Obstetrics and Gynecology [facility] [address] [place] [address] documented in this encounter [facility] 09-03-2022 Telephone encounter Note ----- Message from Leana Gottlieb sent at 09/03/2022 11:20 AM EST ----- Regarding: Rx Refill Contact: self MEDICATION REFILL REQUEST: PCP: Marika Ortega CNP Patient called 09/03/22 and is requesting a medication refill for furosemide (LASIX) 20 MG tablet potassium chloride 10 MEQ CR tablet This was confirmed from the current medication list found in the patients chart. Supply Requested: # of days: 90 days Method of receiving: Send to pharmacy Last set of flowsheet rows for OARRS report: OARRS/NARxCHECK Report Received and Assessed: No data found Date controlled substance agreement signed: No data found Date of last drug screen: No data found Functional Assessment: No data found Will this refill be sent to the preferred pharmacy listed below? Yes Preferred pharmacies: [id number] [place] [id number] [address] Pt Call Back Number Patient call back message sent to the primary care clinical pool. Leana Gottlieb [facility] 09-03-2022 Miscellaneous Notes ----- Message from Leana Gottlieb sent at 09/03/2022 11:20 AM EST ----- Regarding: Rx Refill Contact: self MEDICATION REFILL REQUEST: PCP: Marika Ortega CNP Patient called 09/03/22 and is requesting a medication refill for furosemide (LASIX) 20 MG tablet potassium chloride 10 MEQ CR tablet This was confirmed from the current medication list found in the patients chart. Supply Requested: # of days: 90 days Method of receiving: Send to pharmacy Last set of flowsheet rows for OARRS report: OARRS/NARxCHECK Report Received and Assessed: No data found Date controlled substance agreement signed: No data found Date of last drug screen: No data found Functional Assessment: No data found Will this refill be sent to the preferred pharmacy listed below? Yes Preferred pharmacies: [facility] [id number] [address] Pt Call Back Number Patient call back message sent to the primary care clinical pool. Leana Gottlieb documented in this encounter [facility] 07-13-2022 History of Present illness Narrative Images from the original note were not included. 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 who presents today for vaginal discharge, urinary leakage and breast lesion. She states that vaginal discharge and odor has been going on for some time and smell like ammonia she states that she also notices an odor when she urinates.She additionally mentions having some vulva itching and mild dysuria. She denies any pelvic or abdominal pain. She is s/p total hysterectomy fo endometriosis and fibroid uterus. In terms of her urinary leakage, it has been going on for about 2 years and occurs when she coughs, laughs or sneezes It occurs multiple times daily and causes distress. She denies significant urge incontinence and uses the bathroom for urination about 4 times during the an many times at night based on when she takes her lasix. She mentions using multiple things to enhance vaginal appearance such as pink lady . She denies feeling any vaginal bulge. The breast lesion appeared about 2-3 weeks ago and is located on her left breast near her nipple. It is a white lesion which becomes more apparent when she sits up right. She did have mild discomfort at some point but it is now non tender. She denies any nipple discharge. Past Medical History: Diagnosis Date Anemia Anxiety Arthritis 2020 Asthma last inhaler use years ago Complication of anesthesia Depression Endometriosis Maureen-Mccullough infection GERD (gastroesophageal reflux disease) Hypothyroidism 2016 still adjusting dose Obesity (BMI 30.0-34.9) PONV (postoperative nausea and vomiting) due to eating prior to surgery Seizures (HCC) one as a child Varicose veins of legs ?? 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 LAPAROSCOPY age 20s endometriosis LARYNGOSCOPY DIRECT Right 05/11/2021 Procedure: microsuspension laryngoscopy with vocal cord lesion right lesion (polyp) excision; Surgeon: Gayathri Martinez MD; Location: Main OR; Service: Otolaryngology Allergies Allergen Reactions Amoxicillin Hydrocortisone Itching Penicillin G Causes yeast infection Latex Rash Contact dermatitis Objective: BP 130/81 Pulse 90 Ht 5' 6.34 Wt 119.7 kg (264 lb) LMP (LMP Unknown) BMI 42.18 kg/m General: Alert, well nourished, in no apparent distress HEENT: Normocephalic, atraumatic Lungs: No visible distress with breaths Breast: symmetric b/l, no skin changes noted, mild fibrocystic changes noted b/l, no visible skin lesion noted, possible well healed small pustule at 11 o'clock at the edge of the left areola. Abdominal: Soft, no visible masses, no skin changes, : VULVA: normal appearing vulva with no masses, tenderness or lesions VAGINA: normal appearing vagina with normal color and minimal physiologic discharge, no lesions Cervix: surgically absent POPQ and Pelvic Exam Aa -3 Ba -3 C -8 GH 2 Pb 4 TVL 9 Ap -3 Bp -3 D Levators: 3 Positive standing cough test Assessment/Plan: 1. Breast Lesion -well healed pustule -No abnormal masses palpated -Mammogram on 01/19/2022 BIRADS 1 2. Stress Urinary Incontinence -Discussed Life Style modification such as reducing caffeine intake , timed voiding and continued Kegel exercises -Pelvic Floor PT referral placed -No prolapse on exam -Follow up in 3 months to assess need for sling 3. Vaginal Discharge -Vaginitis swab collected -No obvious signs of infection or odor -FU urine culture -Counseled on vulvar care and hygiene (such as but not limited to using non scented soaps, no douching, no additional vulvar enhancements at this time etc) 80% of 60 min visit spent on counseling and coordination of care. Megan Mcmahan MD Obstetrics and Gynecology [facility] [address] [place] [phone] documented in this encounter [facility] 04-30-2022 Evaluation + Plan note Associated Problem(s): Vaginal odor I have ordered urine lab testing, please stop at the lab when leaving the building so that you can leave a urine sample for testing. We will contact you with the results when they return to the office. Today, I have ordered a vaginosis probe. This will let us know if you have a yeast infection of bacterial vaginosis (a bacterial infection of the vagina). We will contact you with the results when they return to the office. [facility] 04-30-2022 Miscellaneous Notes Associated Problem(s): Vaginal odor I have ordered urine lab testing, please stop at the lab when leaving the building so that you can leave a urine sample for testing. We will contact you with the results when they return to the office. Today, I have ordered a vaginosis probe. This will let us know if you have a yeast infection of bacterial vaginosis (a bacterial infection of the vagina). We will contact you with the results when they return to the office. Associated Problem(s): Hypothyroid As discussed within your appointment today, you are doing well on Levothyroxine. I would like you to continue to take your medication(s) as ordered. If medication refills are needed, they have been sent to your pharmacy. documented in this encounter [facility] 04-30-2022 Evaluation + Plan note Associated Problem(s): Hypothyroid As discussed within your appointment today, you are doing well on Levothyroxine. I would like you to continue to take your medication(s) as ordered. If medication refills are needed, they have been sent to your pharmacy. [facility] 04-12-2022 History of Present illness Narrative OFFICE VISIT PROGRESS NOTE Neda Lawrence is a 46 y.o. female with a past medical history of Patient Active Problem List Diagnosis Hypothyroid Nummular dermatitis Anxiety and depression Localized edema Urinary incontinence Family history of colon cancer Chest pain Lesion of vocal cord Morbid obesity with BMI of 40.0-44.9, adult (HCC) Vaginal odor who presents to the office today for a follow up on hypothyroidism, however, the patient is also complaining of vaginal odor. Vaginal Discharge The patient's primary symptoms include a genital odor and vaginal discharge. This is a recurrent problem. The current episode started more than 1 month ago. The problem occurs constantly. The problem has been waxing and waning. The problem affects both sides. Associated symptoms include frequency and urgency. Pertinent negatives include no constipation, diarrhea, headaches, joint swelling or rash. The vaginal discharge was malodorous and thick. There has been no bleeding. She has not been passing clots. She has not been passing tissue. The symptoms are aggravated by tactile pressure. Sexual activity: not currently. No, her partner does not have an STD. She uses hysterectomy for contraception. Thyroid Problem Presents for follow-up visit. Patient reports no anxiety, constipation, diarrhea, fatigue, hoarse voice, leg swelling or palpitations. The symptoms have been stable. Past treatments include levothyroxine. The treatment provided significant relief. Health Maintenance Topic Date Due Sequential Influenza Vaccine (1) Never done COVID-19 Vaccine (1) 12/27/2022 (Originally 03/25/1976) Wellness Visit 12/27/2022 Mammogram 01/19/2023 Tetanus: Every 10yrs 10/31/2028 Colorectal Cancer Screening 06/26/2029 Depression Remission Assessment (PHQ9) Completed Pneumococcal Vaccine: Ped or At-Risk Aged Out Hepatitis C Screening Discontinued Pap Smear Discontinued HIV Screening Discontinued The following portions of the patient's history were reviewed and updated as appropriate: allergies, current medications and problem list. Family History Problem Relation Age of Onset No Known Problems Mother No Known Problems Father No Known Problems Sister No Known Problems Brother Surgical complications Neg Hx Anesthesia problems Neg Hx Heart disease Neg Hx Clotting disorder Neg Hx Deep vein thrombosis Neg Hx Pulmonary embolism Neg Hx Breast cancer Neg Hx Social History Socioeconomic History Marital status: Tobacco Use Smoking status: Former Types: Cigarettes Quit date: 10/04/2009 Years since quittin.5 Smokeless tobacco: Never Tobacco comments: 1 pack per week for 5 years-- quit 2009 Vaping Use Vaping Use: Never used Substance and Sexual Activity Alcohol use: No Drug use: No Sexual activity: Yes Partners: Male control/protection: Condom, Surgical Social Determinants of Health Financial Resource Strain: Unknown Difficulty of Paying Living Expenses: Patient refused Food Insecurity: Food Insecurity Present Worried About Running Out of Food in the Last Year: Sometimes true Ran Out of Food in the Last Year: Sometimes true Transportation Needs: No Transportation Needs Lack of Transportation (Medical): No Lack of Transportation (Non-Medical): No Social Connections: Unknown Frequency of Social Gatherings with Friends and Family: Once a week Past Surgical History: Procedure Laterality Date ARHTROSCOPY KNEE WITH OR WITHOUT MENISECTOMY Left 01/26/2022 Procedure: Left knee arthroscopy partial medial meniscectomy; Surgeon: Marielle Palmer MD; Location: Main OR; Service: Orthopedic HYSTERECTOMY HYSTERECTOMY TOTAL LAPAROSCOPIC ROBOTIC ASSISTED SI N/A 10/04/2017 Procedure: ROBOTIC ASSISTED TOTAL ABDOMINAL HYSTERECTOMY BILATERAL SALPINGECTOMY; Surgeon: Jose Vigil MD; [place] [facility] [place]; Service: [employer] LAPAROSCOPY age 19s endometriosis LARYNGOSCOPY DIRECT Right 05/11/2021 Procedure: microsuspension laryngoscopy with vocal cord lesion right lesion (polyp) excision; Surgeon: Gayathri Martinez MD; Location: Main OR; Service: Otolaryngology Allergies Allergen Reactions Amoxicillin Hydrocortisone Itching Penicillin G Causes yeast infection Latex Rash Contact dermatitis Patient's Medications New Prescriptions No medications on file Previous Medications ALBUTEROL 90 MCG/ACTUATION INHALER Inhale 2 (two) puffs every 4 to 6 hours as needed for wheezing . FLUOXETINE (PROZAC) 20 MG CAPSULE Take 1 (one) capsule (20 mg total) by mouth daily . FUROSEMIDE (LASIX) 20 MG TABLET Take 1 (one) tablet (20 mg total) by mouth daily as needed (swelling) . L.CRISPA,SIMÓN,LUDWIN,RHAMNO/BACT (AZO DUAL PROTECTION ORAL) Take by mouth . LEVOTHYROXINE (SYNTHROID, LEVOTHROID) 88 MCG TABLET Take 1 (one) tablet (88 mcg total) by mouth every morning . OMEPRAZOLE (PRILOSEC) 40 MG CAPSULE Take 1 (one) capsule (40 mg total) by mouth daily . POTASSIUM CHLORIDE 10 MEQ CR TABLET Take 1 (one) tablet (10 mEq total) by mouth daily . Modified Medications No medications on file Discontinued Medications HYDROCHLOROTHIAZIDE (HYDRODIURIL) 25 MG TABLET Take 1 (one) tablet (25 mg total) by mouth daily . ONDANSETRON (ZOFRAN) 4 MG TABLET Take 1 (one) tablet (4 mg total) by mouth every 6 (six) hours as needed for nausea . Review of Systems Review of Systems Constitutional: Negative for activity change, appetite change and fatigue. HENT: Negative for hoarse voice. Respiratory: Negative for cough and shortness of breath. Cardiovascular: Negative for chest pain and palpitations. Gastrointestinal: Negative for constipation and diarrhea. Genitourinary: Positive for frequency, urgency and vaginal discharge. Skin: Negative for rash. Neurological: Negative for dizziness, facial asymmetry, light-headedness and headaches. Psychiatric/Behavioral: Negative for agitation. The patient is not nervous/anxious. Vitals: 04/12/22 1431 BP: 109/77 BP Location: Right arm Patient Position: Sitting BP Cuff Size: X-large Adult Pulse: 92 Resp: 16 Temp: 98.2 F (36.8 C) TempSrc: Temporal SpO2: 96% Weight: 118.7 kg (261 lb 11.2 oz) Height: 5' 6 BP Readings from Last 3 Encounters: 04/12/22 109/77 01/26/22 126/80 01/18/22 126/80 Wt Readings from Last 3 Encounters: 04/12/22 118.7 kg (261 lb 11.2 oz) 01/26/22 116 kg (255 lb 11.7 oz) 01/18/22 117 kg (258 lb) Body mass index is 42.24 kg/m . Physical Exam Physical Exam Vitals reviewed. Constitutional: Appearance: Normal appearance. She is well-developed. HENT: Head: Normocephalic. Right Ear: External ear normal. Left Ear: External ear normal. Nose: Nose normal. Eyes: General: Lids are normal. Pulmonary: Breath sounds: Normal breath sounds. Musculoskeletal: General: Normal range of motion. Skin: General: Skin is warm and dry. Neurological: General: No focal deficit present. Mental Status: She is alert and oriented to person, place, and time. Coordination: Coordination is intact. Gait: Gait is intact. Psychiatric: Attention and Perception: Attention normal. Mood and Affect: Mood normal. Speech: Speech normal. Behavior: Behavior normal. Behavior is cooperative. Thought Content: Thought content normal. Cognition and Memory: Cognition normal. Judgment: Judgment normal. OARRS/NARxCHECK Report Received and Assessed: No data found Date controlled substance agreement signed: No data found Date of last drug screen: No data found Functional Assessment: No data found The 10-year ASCVD risk score (Sherlyn CHAVEZ, et al., 2019) is: 0.7% Values used to calculate the score: Age: 46 years Sex: Female Is Non- : No Diabetic: No Tobacco smoker: No Systolic Blood Pressure: 109 mmHg Is BP treated: No HDL Cholesterol: 58 mg/dL Total Cholesterol: 204 mg/dL Assessment/Plan Problem List Items Addressed This Visit Endocrine Hypothyroid As discussed within your appointment today, you are doing well on Levothyroxine. I would like you to continue to take your medication(s) as ordered. If medication refills are needed, they have been sent to your pharmacy. Other Vaginal odor - Primary I have ordered urine lab testing, please stop at the lab when leaving the building so that you can leave a urine sample for testing. We will contact you with the results when they return to the office. Today, I have ordered a vaginosis probe. This will let us know if you have a yeast infection of bacterial vaginosis (a bacterial infection of the vagina). We will contact you with the results when they return to the office. Relevant Orders Vaginitis DNA Probes (Completed) Urinalysis with microscopic (Completed) Urine Aerobic Culture (Completed) Goals None For any new medications prescribed today, patient was educated about indications for the medication, how to take the medication and potential side effects of the medications. documented in this encounter [facility] 02-26-2022 Telephone encounter Note Caller: Neda/fredy (Today, 12:10 PM) MEDICATION REFILL REQUEST: Pt called in and stated that the wrong water pill was called in for her last week. PCP: Marika Ortega CNP Patient called 02/26/22 and is requesting a medication refill for hydroCHLOROthiazide (HYDRODIURIL) 25 MG tablet 90 tablet 1 06/23/2021 Sig - Route: Take 1 (one) tablet (25 mg total) by mouth daily . - Oral Sent to pharmacy as: hydroCHLOROthiazide 25 mg tablet (HYDRODIURIL) E-Prescribing Status: Receipt confirmed by pharmacy (06/23/2021 8:40 AM EST) . This was confirmed from the current medication list found in the patients chart. Supply Requested: # of days: 90 days Method of receiving: Send to pharmacy Last set of flowsheet rows for OARRS report: OARRS/NARxCHECK Report Received and Assessed: No data found Date controlled substance agreement signed: No data found Date of last drug screen: No data found Functional Assessment: No data found Will this refill be sent to the preferred pharmacy listed below? Yes Preferred pharmacies: [id number] [place] [id number] [address] Pt Call Back Number [facility] 02-26-2022 Miscellaneous Notes Caller: Neda/self (Today, 12:10 PM) MEDICATION REFILL REQUEST: Pt called in and stated that the wrong water pill was called in for her last week. PCP: Marika Ortega, [employer] [employer] Patient called 02/26/22 and is requesting a medication refill for hydroCHLOROthiazide (HYDRODIURIL) 25 MG tablet 90 tablet 1 06/23/2021 Sig - Route: Take 1 (one) tablet (25 mg total) by mouth daily . - Oral Sent to pharmacy as: hydroCHLOROthiazide 25 mg tablet (HYDRODIURIL) E-Prescribing Status: Receipt confirmed by pharmacy (06/23/2021 8:40 AM EST) . This was confirmed from the current medication list found in the patients chart. Supply Requested: # of days: 90 days Method of receiving: Send to pharmacy Last set of flowsheet rows for OARRS report: OARRS/NARxCHECK Report Received and Assessed: No data found Date controlled substance agreement signed: No data found Date of last drug screen: No data found Functional Assessment: No data found Will this refill be sent to the preferred pharmacy listed below? Yes Preferred pharmacies: [id number] [phone] Pt Call Back Number documented in this encounter [facility] 02-20-2022 Telephone encounter Note Appt 04/12/22 [facility] 02-20-2022 Telephone encounter Note ----- Message from Willow George sent at 02/20/2022 1:34 PM EDT ----- Regarding: Rx refill Contact: Neda/self MEDICATION REFILL REQUEST: PCP: Marika Ortega CNP Patient called 02/20/22 and is requesting a medication refill for WATER PILL ( PT WAS NOT SURE OF NAME) . This was confirmed from the current medication list found in the patients chart. Supply Requested: # of days: 90 days Method of receiving: Send to pharmacy Last set of flowsheet rows for OARRS report: OARRS/NARxCHECK Report Received and Assessed: No data found Date controlled substance agreement signed: No data found Date of last drug screen: No data found Functional Assessment: No data found Will this refill be sent to the preferred pharmacy listed below? Yes Preferred pharmacies: [address] [address] Pt Call Back Number Patient call back message sent to the primary care clinical pool. Willow George [facility] 02-20-2022 Miscellaneous Notes Appt 04/12/22 ----- Message from Willow George sent at 02/20/2022 1:34 PM EDT ----- Regarding: Rx refill Contact: Neda/fredy MEDICATION REFILL REQUEST: PCP: Marika Ortega CNP Patient called 02/20/22 and is requesting a medication refill for WATER PILL ( PT WAS NOT SURE OF NAME) . This was confirmed from the current medication list found in the patients chart. Supply Requested: # of days: 90 days Method of receiving: Send to pharmacy Last set of flowsheet rows for OARRS report: OARRS/NARxCHECK Report Received and Assessed: No data found Date controlled substance agreement signed: No data found Date of last drug screen: No data found Functional Assessment: No data found Will this refill be sent to the preferred pharmacy listed below? Yes Preferred pharmacies: [facility] [address] [phone] Pt Call Back Number Patient call back message sent to the primary care clinical pool. Willow George documented in this encounter [facility] 02-07-2022 Telephone encounter Note Flexeril for left knee partial medial meniscectomy on 01/26. [facility] 02-07-2022 Miscellaneous Notes Flexeril for left knee partial medial meniscectomy on 01/26. documented in this encounter [facility] 01-03-2022 Evaluation + Plan note Associated Problem(s): Screening mammogram for breast cancer It is time to get your Mammogram done. Please call and schedule your appointment. [facility] ( [facility]) [address] [place], [place] [id number] [facility] 01-03-2022 Evaluation + Plan note Associated Problem(s): Hypothyroid I have ordered blood work for you to have completed. Please have this completed at your earliest convenience. This blood work will need to be completed while fasting. This means nothing to eat or drink for 10-12 hours prior to having it drawn. You can however, drink water and take medications as ordered during this time. We will contact you with the results when they return to the office. As discussed within your appointment today, you are doing well on Levothyroxine. I would like you to continue to take your medication(s) as ordered. If medication refills are needed, they have been sent to your pharmacy. [facility] 01-03-2022 Miscellaneous Notes Associated Problem(s): Screening mammogram for breast cancer It is time to get your Mammogram done. Please call and schedule your appointment. [facility] ( [facility]) [address] [place], [place] [id number] Associated Problem(s): Hypothyroid I have ordered blood work for you to have completed. Please have this completed at your earliest convenience. This blood work will need to be completed while fasting. This means nothing to eat or drink for 10-12 hours prior to having it drawn. You can however, drink water and take medications as ordered during this time. We will contact you with the results when they return to the office. As discussed within your appointment today, you are doing well on Levothyroxine. I would like you to continue to take your medication(s) as ordered. If medication refills are needed, they have been sent to your pharmacy. Associated Problem(s): Well female exam with routine gynecological exam Doing well, denies complaints at this time. Health maintenance updated and reviewed with patient. It is recommended that you complete at least 150 minutes of cardiovascular activity weekly. documented in this encounter [facility] 01-03-2022 Evaluation + Plan note Associated Problem(s): Well female exam with routine gynecological exam Doing well, denies complaints at this time. Health maintenance updated and reviewed with patient. It is recommended that you complete at least 150 minutes of cardiovascular activity weekly. [facility] 12-27-2021 History of Present illness Narrative Examination chaperoned by Tara Cox. OUTPATIENT WELL ADULT PROGRESS NOTE Neda Lawrence is a 46 y.o. female and is here for a preventative care visit. Patient's medical and surgical history was updated, as well as family's medical history. Health maintenance was reviewed and updated Patient is a 46 y.o. female with a past medical history of Patient Active Problem List Diagnosis Hypothyroid Nummular dermatitis Anxiety and depression Localized edema Urinary incontinence Family history of colon cancer Rectal bleeding Chest pain Lesion of vocal cord Morbid obesity with BMI of 40.0-44.9, adult (HCC) Complex tear of medial meniscus of left knee Screening mammogram for breast cancer Well female exam with routine gynecological exam who presents to the office today for a well adult exam. Patient is doing well and denies complaints at this time. Thyroid Problem Presents for follow-up visit. Patient reports no anxiety, constipation, diarrhea, fatigue, heat intolerance, hoarse voice, menstrual problem, palpitations, weight gain or weight loss. The symptoms have been stable. Past treatments include levothyroxine. The treatment provided significant relief. Her past medical history is significant for obesity. There are no known risk factors. Subjective: Health Maintenance reviewed - labs ordered. OBGYN HX - No LMP recorded (lmp unknown). Patient has had a hysterectomy. Patient has periods (heavy, regular, painful): not applicable Sexually active ( control): not currently Any breast concerns? denies Health Maintenance Due Topic Date Due Mammogram Never done Depression Remission Assessment (PHQ9) 12/31/2021 There are no preventive care reminders to display for this patient. Not applicable - hysterectomy Mammogram Due Date or Overdue Date Topic Date Due Mammogram Never done Not on file, patient to schedule The following portions of the patient's history were reviewed and updated as appropriate: allergies, current medications, past family history, past medical history, past social history, past surgical history and problem list. Past Medical History: Diagnosis Date Anemia Anxiety Asthma last inhaler use years ago Complication of anesthesia Depression Endometriosis Maureen-Mccullough infection GERD (gastroesophageal reflux disease) Hypothyroidism 2017 still adjusting dose Obesity (BMI 30.0-34.9) PONV (postoperative nausea and vomiting) due to eating prior to surgery Seizures (HCC) one as a child Varicose veins of legs ?? 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 LAPAROSCOPY age 19s endometriosis LARYNGOSCOPY DIRECT Right 05/11/2021 Procedure: microsuspension laryngoscopy with vocal cord lesion right lesion (polyp) excision; Surgeon: Gayathri Martinez MD; Location: Main OR; Service: Otolaryngology OB History 3 Para 2 Term AB 1 Living 2 SAB 1 IAB Ectopic Multiple Live Births 2 Social History Socioeconomic History Marital status: Tobacco Use Smoking status: Former Pack years: 0.00 Types: Cigarettes Quit date: 10/04/2009 Years since quittin.2 Smokeless tobacco: Never Tobacco comments: 1 pack per week for 5 years-- quit 2009 Vaping Use Vaping Use: Never used Substance and Sexual Activity Alcohol use: No Drug use: No Sexual activity: Yes Partners: Male control/protection: Surgical Social Determinants of Health Financial Resource Strain: High Risk Difficulty of Paying Living Expenses: Very hard Food Insecurity: Food Insecurity Present Worried About Running Out of Food in the Last Year: Often true Ran Out of Food in the Last Year: Sometimes true Transportation Needs: No Transportation Needs Lack of Transportation (Medical): No Lack of Transportation (Non-Medical): No Social Connections: Unknown Frequency of Social Gatherings with Friends and Family: Never Family History Problem Relation Age of Onset No Known Problems Mother No Known Problems Father No Known Problems Sister No Known Problems Brother Surgical complications Neg Hx Anesthesia problems Neg Hx Heart disease Neg Hx Clotting disorder Neg Hx Deep vein thrombosis Neg Hx Pulmonary embolism Neg Hx Allergies Allergen Reactions Amoxicillin Hydrocortisone Itching Penicillin G Causes yeast infection Latex Rash Contact dermatitis Past Surgical History: Procedure Laterality Date HYSTERECTOMY HYSTERECTOMY TOTAL LAPAROSCOPIC ROBOTIC ASSISTED SI N/A 10/04/2017 Procedure: ROBOTIC ASSISTED TOTAL ABDOMINAL HYSTERECTOMY BILATERAL SALPINGECTOMY; Surgeon: Jose Vigil MD; [place] [facility] [place]; Service: [employer] LAPAROSCOPY age 19s endometriosis LARYNGOSCOPY DIRECT Right 05/11/2021 Procedure: microsuspension laryngoscopy with vocal cord lesion right lesion (polyp) excision; Surgeon: Gayathri Martinez MD; Location: Main OR; Service: Otolaryngology Patient's Medications New Prescriptions No medications on file Previous Medications FLUOXETINE (PROZAC) 20 MG CAPSULE Take 1 (one) capsule (20 mg total) by mouth daily . FUROSEMIDE (LASIX) 20 MG TABLET Take 1 (one) tablet (20 mg total) by mouth daily as needed (swelling) . HYDROCHLOROTHIAZIDE (HYDRODIURIL) 25 MG TABLET Take 1 (one) tablet (25 mg total) by mouth daily . LEVOTHYROXINE (SYNTHROID, LEVOTHROID) 88 MCG TABLET Take 1 (one) tablet (88 mcg total) by mouth every morning . OMEPRAZOLE (PRILOSEC) 40 MG CAPSULE Take 1 (one) capsule (40 mg total) by mouth daily . ONDANSETRON (ZOFRAN) 4 MG TABLET Take 1 (one) tablet (4 mg total) by mouth every 6 (six) hours as needed for nausea . POTASSIUM CHLORIDE 10 MEQ CR TABLET Take 1 (one) tablet (10 mEq total) by mouth daily . Modified Medications Modified Medication Previous Medication ALBUTEROL 90 MCG/ACTUATION INHALER albuterol 90 mcg/actuation inhaler Inhale 2 (two) puffs every 4 to 6 hours as needed for wheezing . Inhale 2 (two) puffs every 4 to 6 hours as needed for wheezing . Discontinued Medications No medications on file Objective: BP 107/73 (BP Location: Right arm, Patient Position: Sitting, BP Cuff Size: X-large Adult) Pulse 75 Temp 97.6 F (36.4 C) (Temporal) Resp 16 Ht 5' 6 Wt 117.2 kg (258 lb 6.4 oz) LMP (LMP Unknown) SpO2 97% BMI 41.71 kg/m Review of Systems Review of Systems Constitutional: Negative for activity change, appetite change, chills, fatigue, weight gain and weight loss. HENT: Negative for congestion, ear discharge, hoarse voice, postnasal drip and rhinorrhea. Eyes: Negative for pain and redness. Respiratory: Negative for cough and shortness of breath. Cardiovascular: Negative for chest pain and palpitations. Gastrointestinal: Negative for abdominal pain, constipation, diarrhea and nausea. Endocrine: Negative for heat intolerance. Genitourinary: Negative for difficulty urinating, dysuria, flank pain, menstrual problem, pelvic pain, urgency, vaginal bleeding, vaginal discharge and vaginal pain. Musculoskeletal: Negative for arthralgias, back pain, gait problem and myalgias. Skin: Negative for color change. Neurological: Negative for dizziness, facial asymmetry, light-headedness, numbness and headaches. Psychiatric/Behavioral: Negative for agitation. The patient is not nervous/anxious. Vitals: 12/27/21 1418 BP: 107/73 BP Location: Right arm Patient Position: Sitting BP Cuff Size: X-large Adult Pulse: 75 Resp: 16 Temp: 97.6 F (36.4 C) TempSrc: Temporal SpO2: 97% Weight: 117.2 kg (258 lb 6.4 oz) Height: 5' 6 Body mass index is 41.71 kg/m . The 10-year ASCVD risk score (Coolidgeneisha MATHEW Jr., et al., 2013) is: 0.5% Values used to calculate the score: Age: 46 years Sex: Female Is Non- : No Diabetic: No Tobacco smoker: No Systolic Blood Pressure: 107 mmHg Is BP treated: No HDL Cholesterol: 72 mg/dL Total Cholesterol: 207 mg/dL Physical Exam Physical Exam Vitals and nursing note reviewed. Exam conducted with a geriatric aide present. Constitutional: Appearance: Normal appearance. She is well-developed. HENT: Head: Normocephalic. Right Ear: Tympanic membrane, ear canal and external ear normal. Left Ear: Tympanic membrane, ear canal and external ear normal. Nose: Nose normal. Mouth/Throat: Lips: [place]. Eyes: General: Lids are normal. Conjunctiva/sclera: Conjunctivae normal. Neck: Thyroid: No thyroid mass or thyromegaly. Cardiovascular: Rate and Rhythm: Normal rate and regular rhythm. Pulses: Normal pulses. Radial pulses are 2+ on the right side and 2+ on the left side. Heart sounds: Normal heart sounds, S1 normal and S2 normal. Pulmonary: Effort: Pulmonary effort is normal. Breath sounds: Normal breath sounds. Chest: Chest wall: No mass. Breasts: Right: Normal. No inverted nipple, mass, nipple discharge, skin change, tenderness, axillary adenopathy or supraclavicular adenopathy. Left: Normal. No inverted nipple, mass, nipple discharge, skin change, tenderness, axillary adenopathy or supraclavicular adenopathy. Abdominal: Palpations: Abdomen is soft. Tenderness: There is no abdominal tenderness. Genitourinary: Exam position: Knee-chest position. Pubic Area: No rash. Labia: Right: No rash, tenderness, lesion or injury. Left: No rash, tenderness, lesion or injury. Vagina: Normal. No signs of injury. No vaginal discharge, erythema or tenderness. Cervix: No discharge. Adnexa: Right: No tenderness. Left: No tenderness. Musculoskeletal: General: Normal range of motion. Cervical back: Normal range of motion. No pain with movement. Right lower leg: No edema. Left lower leg: No edema. Lymphadenopathy: Head: Right side of head: No submental, submandibular, tonsillar, preauricular or posterior auricular adenopathy. Left side of head: No submental, submandibular, tonsillar, preauricular or posterior auricular adenopathy. Upper Body: Right upper body: No supraclavicular, axillary or pectoral adenopathy. Left upper body: No supraclavicular, axillary or pectoral adenopathy. Skin: General: Skin is warm and dry. Neurological: General: No focal deficit present. Mental Status: She is alert and oriented to person, place, and time. Mental status is at baseline. Coordination: Coordination is intact. Gait: Gait is intact. Psychiatric: Attention and Perception: Attention and perception normal. Mood and Affect: Mood and affect normal. Speech: Speech normal. Behavior: Behavior normal. Behavior is cooperative. Thought Content: Thought content normal. Cognition and Memory: Cognition and memory normal. Judgment: Judgment normal. Assessment/Plan Problem List Items Addressed This Visit Endocrine Hypothyroid I have ordered blood work for you to have completed. Please have this completed at your earliest convenience. This blood work will need to be completed while fasting. This means nothing to eat or drink for 10-12 hours prior to having it drawn. You can however, drink water and take medications as ordered during this time. We will contact you with the results when they return to the office. As discussed within your appointment today, you are doing well on Levothyroxine. I would like you to continue to take your medication(s) as ordered. If medication refills are needed, they have been sent to your pharmacy. Relevant Orders Comprehensive Metabolic Panel CBC and Differential Lipid Panel TSH T4, Free Other Screening mammogram for breast cancer It is time to get your Mammogram done. Please call and schedule your appointment. [facility] ( [facility]) [address] [place], [place] [id number] Relevant Orders Mammography Screening Bill Bilateral Well female exam with routine gynecological exam - Primary Doing well, denies complaints at this time. Health maintenance updated and reviewed with patient. It is recommended that you complete at least 150 minutes of cardiovascular activity weekly. Goals None General Patient Counseling Given: --Nutrition: Stressed importance of moderation in sodium/caffeine intake, saturated fat and cholesterol, caloric balance, sufficient intake of fresh fruits, vegetables, fiber, calcium, iron, and 1 mg of folate supplement per day (for females capable of ). --Exercise: Stressed the importance of regular exercise. --Substance Abuse: Discussed cessation/primary prevention of tobacco, alcohol, or other drug use --Sexuality: Discussed sexually transmitted diseases, partner selection, use of condoms, avoidance of unintended and contraceptive alternatives. --Dental health: Discussed importance of regular dental visits. --Immunizations reviewed.TDaP due every 10 days, Shingles vaccines recommended after the age of 50, Pneumonia vaccines due after the age of 65. --Discussed benefits of screening mammograms, pap smears, Dexa Scan (screening of osteoporosis) and colonoscopy. documented in this encounter [facility] 12-12-2021 Telephone encounter Note ----- Message from Sapphire Dang sent at 12/12/2021 3:23 PM EDT ----- Regarding: rx refill - shes out Contact: self MEDICATION REFILL REQUEST: PCP: Marika Ortega CNP Patient called 12/12/21 and is requesting a medication refill for levothyroxine (SYNTHROID, LEVOTHROID) 88 MCG [id number]/2020 Sig - Route: Take 1 (one) tablet (88 mcg total) by mouth every morning . - Oral Sent to pharmacy as: levothyroxine 88 mcg tablet (SYNTHROID, LEVOTHROID) E-Prescribing Status: Receipt confirmed by pharmacy (04/12/2021 12:26 PM EDT) . This was confirmed from the current medication list found in the patients chart. Supply Requested: # of days: 90 days Method of receiving: Send to pharmacy Last set of flowsheet rows for OARRS report: OARRS/NARxCHECK Report Received and Assessed: No data found Date controlled substance agreement signed: No data found Date of last drug screen: No data found Functional Assessment: No data found Will this refill be sent to the preferred pharmacy listed below? Yes Preferred pharmacies: [address] [phone] Pt Call Back Number Patient call back message sent to the primary care clinical pool. Sapphire Dang [facility] 12-12-2021 Miscellaneous Notes ----- Message from Sapphire Dang sent at 12/12/2021 3:23 PM EDT ----- Regarding: rx refill - shes out Contact: self MEDICATION REFILL REQUEST: PCP: Marika Ortega CNP Patient called 12/12/21 and is requesting a medication refill for levothyroxine (SYNTHROID, LEVOTHROID) 88 MCG [id number]/08/2020 Sig - Route: Take 1 (one) tablet (88 mcg total) by mouth every morning . - Oral Sent to pharmacy as: levothyroxine 88 mcg tablet (SYNTHROID, LEVOTHROID) E-Prescribing Status: Receipt confirmed by pharmacy (04/12/2021 12:26 PM EDT) . This was confirmed from the current medication list found in the patients chart. Supply Requested: # of days: 90 days Method of receiving: Send to pharmacy Last set of flowsheet rows for OARRS report: OARRS/NARxCHECK Report Received and Assessed: No data found Date controlled substance agreement signed: No data found Date of last drug screen: No data found Functional Assessment: No data found Will this refill be sent to the preferred pharmacy listed below? Yes Preferred pharmacies: [address] [phone] Pt Call Back Number Patient call back message sent to the [facility]. Sapphire Dang documented in this encounter [facility] 11-15-2021 Telephone encounter Note ----- Message from Elvia Miranda sent at 11/14/2021 3:16 PM EDT ----- Regarding: Rx refill MEDICATION REFILL REQUEST: PCP: Marika Ortega CNP Patient called 11/14/21 and is requesting a medication refill for potassium chloride 10 MEQ CR [id number] Sig - Route: Take 1 (one) tablet (10 mEq total) by mouth daily . - Oral This was confirmed from the current medication list found in the patients chart. Supply Requested: # of days: 30 days asking for 90 days Method of receiving: Send to pharmacy Last set of flowsheet rows for OARRS report: OARRS/NARxCHECK Report Received and Assessed: No data found Date controlled substance agreement signed: No data found Date of last drug screen: No data found Functional Assessment: No data found Will this refill be sent to the preferred pharmacy listed below? Yes Preferred pharmacies: [address] [phone] Pt Call Back Number Patient call back message sent to the [facility]. Elvia Miranda [facility] 11-15-2021 Miscellaneous Notes ----- Message from Elvia Miranda sent at 11/14/2021 3:16 PM EDT ----- Regarding: Rx refill MEDICATION REFILL REQUEST: PCP: Marika Ortega CNP Patient called 11/14/21 and is requesting a medication refill for potassium chloride 10 MEQ CR [id number] Sig - Route: Take 1 (one) tablet (10 mEq total) by mouth daily . - Oral This was confirmed from the current medication list found in the patients chart. Supply Requested: # of days: 30 days asking for 90 days Method of receiving: Send to pharmacy Last set of flowsheet rows for OARRS report: OARRS/NARxCHECK Report Received and Assessed: No data found Date controlled substance agreement signed: No data found Date of last drug screen: No data found Functional Assessment: No data found Will this refill be sent to the preferred pharmacy listed below? Yes Preferred pharmacies: [address] [phone] Pt Call Back Number Patient call back message sent to the primary care clinical pool. Elvia Miranda documented in this encounter [facility] 11-14-2021 History of Present illness Narrative Images from the original note were not included. patient: Neda Lawrence : 1975 Date: 11/14/21 This 46 y.o. female presents for Urinary Frequency (States she feels she has to constantly wipe and can't get dry. X1 year ), Vaginal Itching, and vaginal odor Subjective Neda is a 46 y.o. female who presents for urinary frequency. Concerned re: UTI Patient Active Problem List Diagnosis Fibroid uterus Hypothyroid Nummular dermatitis Hypokalemia Anxiety and depression Localized edema Urinary incontinence Family history of colon cancer Rectal bleeding Chest pain Lesion of vocal cord Morbid obesity with BMI of 40.0-44.9, adult (HCC) Preop examination Complex tear of medial meniscus of left knee Acute left flank pain Urinary frequency History of Present Illness: Reports urinary frequency and mild intermittent stress incontinence. States has been chronic over past year but has developed some dysuria, bleeding and flank pain recently. Has a new toilet paper that she thinks is rough, causing her to bleed when she wipes and she will be changing it. Has been increasing exercise recently and is unsure if left flank pain is from increased exercise or not. Flank pain, left began a few days ago. Denies fever,chills, lightheadedness, abd pain, n/v/d/ Neda reports longstanding history of health anxiety, stating she is very nervous and worried about all aspects of her health. She has not had counseling for this and states she would consider counseling for this in the future. Denies SI/ HI Past Medical/Surgical History: Past Medical History: Diagnosis Date Anemia Anxiety Asthma last inhaler use years ago Complication of anesthesia Depression Endometriosis Maureen-Mccullough infection GERD (gastroesophageal reflux disease) Hypothyroidism 2016 still adjusting dose Obesity (BMI 30.0-34.9) PONV (postoperative nausea and vomiting) due to eating prior to surgery Seizures (HCC) one as a child Varicose veins of legs ?? 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 LAPAROSCOPY age 19s endometriosis LARYNGOSCOPY DIRECT Right 05/11/2021 Procedure: microsuspension laryngoscopy with vocal cord lesion right lesion (polyp) excision; Surgeon: Gayathri Martinez MD; Location: Main OR; Service: Otolaryngology Family History: Family History Problem Relation Age of Onset No Known Problems Mother No Known Problems Father No Known Problems Sister No Known Problems Brother Surgical complications Neg Hx Anesthesia problems Neg Hx Heart disease Neg Hx Clotting disorder Neg Hx Deep vein thrombosis Neg Hx Pulmonary embolism Neg Hx Social History: Social History Socioeconomic History Marital status: Tobacco Use Smoking status: Former Smoker Quit date: 10/04/2009 Years since quittin.1 Smokeless tobacco: Never Used Tobacco comment: 1 pack per week for 5 years-- quit 2009 Vaping Use Vaping Use: Never used Substance and Sexual Activity Alcohol use: No Drug use: No Sexual activity: Yes Partners: Male control/protection: Surgical Social Determinants of Health Financial Resource Strain: High Risk Difficulty of Paying Living Expenses: Very hard Food Insecurity: Food Insecurity Present Worried About Running Out of Food in the Last Year: Often true Ran Out of Food in the Last Year: Sometimes true Transportation Needs: No Transportation Needs Lack of Transportation (Medical): No Lack of Transportation (Non-Medical): No Social Connections: Unknown Frequency of Social Gatherings with Friends and Family: Never Allergies: Allergies Allergen Reactions Amoxicillin Hydrocortisone Itching Penicillin G Causes yeast infection Latex Rash Contact dermatitis Medications: Patient's Medications New Prescriptions No medications on file Previous Medications ALBUTEROL 90 MCG/ACTUATION INHALER Inhale 2 (two) puffs every 4 to 6 hours as needed for wheezing . FLUOXETINE (PROZAC) 20 MG CAPSULE Take 1 (one) capsule (20 mg total) by mouth daily . FUROSEMIDE (LASIX) 20 MG TABLET Take 1 (one) tablet (20 mg total) by mouth daily as needed (swelling) . HYDROCHLOROTHIAZIDE (HYDRODIURIL) 25 MG TABLET Take 1 (one) tablet (25 mg total) by mouth daily . LEVOTHYROXINE (SYNTHROID, LEVOTHROID) 88 MCG TABLET Take 1 (one) tablet (88 mcg total) by mouth every morning . OMEPRAZOLE (PRILOSEC) 40 MG CAPSULE Take 1 (one) capsule (40 mg total) by mouth daily . ONDANSETRON (ZOFRAN) 4 MG TABLET Take 1 (one) tablet (4 mg total) by mouth every 6 (six) hours as needed for nausea . POTASSIUM CHLORIDE 10 MEQ CR TABLET Take 1 (one) tablet (10 mEq total) by mouth daily . Modified Medications No medications on file Discontinued Medications CETIRIZINE-PSEUDOEPHEDRINE (ZYRTEC-D) 5-120 MG PER TABLET Take 1 tablet p.o. every 12 hours as needed congestion. . Medications Discontinued During This Encounter Medication Reason cetirizine-pseudoePHEDrine (ZyrTEC-D) 5-120 mg per tablet Therapy completed Medication note: due to EMR limitations: DISCONTINUED medications may mean: PREVIOUSLY stopped STOPPING today REFILLING today Review of Systems: 10 organ systems were reviewed. All systems were negative, apart from what was mentioned in the HPI and the following. Review of Systems Constitutional: Negative. HENT: Negative. Respiratory: Negative for cough, chest tightness, shortness of breath and wheezing. Cardiovascular: Negative for chest pain and palpitations. Gastrointestinal: Negative for abdominal pain, constipation, diarrhea, nausea and vomiting. Genitourinary: Positive for flank pain, frequency and urgency. Negative for hematuria. Neurological: Negative for dizziness, light-headedness and headaches. Psychiatric/Behavioral: Negative for dysphoric mood. The patient is nervous/anxious. Objective Physical Exam: Vital Signs: BP 118/78 (BP Location: Right arm, Patient Position: Sitting, BP Cuff Size: X-large Adult) Pulse 98 Temp 98 F (36.7 C) (Temporal) Resp 18 Ht 5' 6 Wt 112 kg (247 lb) LMP (LMP Unknown) SpO2 96% BMI 39.87 kg/m Wt Readings from Last 3 Encounters: 11/14/21 112 kg (247 lb) 09/18/21 111.6 kg (246 lb) 08/21/21 111.8 kg (246 lb 8 oz) No results found for: HGBA1C BP Readings from Last 3 Encounters: 11/14/21 118/78 09/18/21 (!) 119/93 08/21/21 119/84 Physical Exam Vitals and nursing note reviewed. Constitutional: General: She is not in acute distress. Appearance: Normal appearance. She is not ill-appearing, toxic-appearing or diaphoretic. HENT: Head: Normocephalic and atraumatic. Right Ear: Tympanic membrane, ear canal and external ear normal. Left Ear: Tympanic membrane, ear canal and external ear normal. Eyes: Conjunctiva/sclera: Conjunctivae normal. Pupils: Pupils are equal, round, and reactive to light. Cardiovascular: Rate and Rhythm: Normal rate and regular rhythm. Pulses: Normal pulses. Heart sounds: Normal heart sounds. No murmur heard. No friction rub. No gallop. Pulmonary: Effort: Pulmonary effort is normal. No respiratory distress. Breath sounds: Normal breath sounds. No wheezing, rhonchi or rales. Abdominal: General: Bowel sounds are normal. There is no distension. Palpations: Abdomen is soft. There is no mass. Tenderness: There is no abdominal tenderness. There is left CVA tenderness. There is no right CVA tenderness, guarding or rebound. Hernia: No hernia is present. Musculoskeletal: General: No swelling or tenderness. Normal range of motion. Cervical back: Normal range of motion and neck supple. No rigidity. No muscular tenderness. Right lower leg: No edema. Left lower leg: No edema. Comments: Skin: General: Skin is warm and dry. Capillary Refill: Capillary refill takes less than 2 seconds. Findings: No bruising, erythema, lesion or rash. Neurological: General: No focal deficit present. Mental Status: She is alert and oriented to person, place, and time. Psychiatric: Mood and Affect: Mood normal. Behavior: Behavior normal. Thought Content: Thought content normal. Judgment: Judgment normal. Recent Results (from the past 168 hour(s)) POC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 suppository before inserting it. Avoid handling the suppository too long or it will melt in your hands. The rectal suppository can stain clothing or other fabrics itcomes into contact with. For best results from the suppository, lie down after inserting it and hold in the suppository. Thesuppository will melt quickly once inserted and you should feel little or no discomfort while holding it in. For best results from the cream, use only the applicator provided with the medication. Otherwise, follow the directions provided with your rectal cream. Avoid using the bathroom for one to three hours after inserting the cream or suppository. Apply the ointment to the rectum and surrounding skin of the rectal area as directed on the packagelabel. Call your doctor if your symptoms do not improve or if they get worse after using this medicine fora few days. Store the rectal cream at room temperature away from moisture and heat. Store the rectal suppositories at cool room temperature away from moisture and heat. Do not refrigerate or freeze them. What happens if I miss a dose? Use the missed dose as soon as you remember. Skip the missed dose if it is almost time for your next scheduled dose. Do not use extra medicine to make up the missed dose. What happens if I overdose? Seek emergency medical attention or call the Poison Help line at . An overdose of hydrocortisone rectal is not expected to produce life-threatening symptoms. However,long-term use of high steroid doses can lead to symptoms such as thinning skin, easy bruising, changes in the shape or location of body fat (especially in your face, neck, back, and waist), increasedacne or facial hair, menstrual problems, impotence, or loss of interest in sex. What should I avoid while using hydrocortisone rectal ? Avoid getting a vaccine during your treatment with hydrocortisone rectal. Vaccines may not work as well while you are using a steroid medicine. What are the possible side effects of hydrocortisone rectal? Get emergency medical help if you have any of these signs of an allergic reaction: hives; difficulty breathing; swelling of your face, lips, tongue, or throat. Call your doctor at once if you have a serious side effect such as: feeling short of breath, even with mild exertion; swelling of your ankles or feet; muscle weakness; rapid weight gain, especially in your face and midsection; severe rectal pain or burning; bleeding from your rectum; severe stomach pain; sudden and severe headache or pain behind your eyes; or seizure (convulsions). Less serious side effects may include: mild rectal pain or burning; acne; changes in your menstrual periods; increased sweating; or increased facial or body hair growth. This is not a complete list of side effects and others may occur. Call your doctor for medical advice about side effects. You may report side effects to FDA at 7-834-WRT-5236. What other drugs will affect hydrocortisone rectal ? Before using hydrocortisone rectal, tell your doctor if you also use insulin or take oral diabetes medication. There may be other drugs that can interact with hydrocortisone rectal. Tell your doctor about all medications you use. This includes prescription, qoqz-nbd-fuhknpe, vitamin, and herbal products. Do not start a new medication without telling your doctor. Where can I get more information? Your pharmacist can provide more information about hydrocortisone rectal cream, ointment, or suppository. Remember, keep this and all other medicines out of the reach of children, never share your medicines with others, and use this medication only for the indication prescribed. Every effort has been made to ensure that the information provided by [employer]. ('[employer]') is accurate, up-to-date, and complete, but no guarantee is made to that effect. Drug information contained herein may be time sensitive. [employer] information has been compiled for use by healthcare practitioners and consumers in the [place] and therefore [employer] does not warrant that uses outside of the [place] are appropriate, unless specifically indicated otherwise. [employer] drug information does not endorse drugs, diagnose patients or recommend therapy. [employer] drug information isan informational resource designed to assist licensed healthcare practitioners in caring for their p atients and/or to serve consumers viewing this service as a supplement to, and not a substitute for, the expertise, skill, knowledge and judgment of healthcare practitioners. The absence of a warningfor a given drug or drug combination in no way should be construed to indicate that the drug or drug combination is safe, effective or appropriate for any given patient. [employer] does not assume any responsibility for any aspect of healthcare administered with the aid of information [employer] provides. The information contained herein is not intended to cover all possible uses, directions, precautions, warnings, drug interactions, allergic reactions, or adverse effects. If you have questions about the drugs you are taking, check with your doctor, nurse or pharmacist. Copyright 4642-7394 [employer]. Version: 3.02. Revision date: 07/26/2010. Care instructions adapted under license by your healthcare professional. If you have questions about a medical condition or this instruction, always ask your healthcare professional. [employer] disclaims any warranty or liability for your use of this information. documented in this encounter* Patient Instructions* Marika Ortega, [employer] - 01/22/2020 8:58 AM EDT Depression Treatment: Care Instructions Your Care Instructions Depression is a condition that affects the way you feel, think, and act. It causes symptoms such aslow energy, loss of interest in daily activities, and sadness or grouchiness that goes on for a long time. Depression is very common and affects men and women of all ages. Depression is a medical illness caused by changes in the natural chemicals in your brain. It is nota character flaw, and it does not mean that you are a bad or weak person. It does not mean that youare going crazy. It is important to know that depression can be treated. Medicines, counseling, and self-care can all help. Many people do not get help because they are embarrassed or think that they will get over the depression on their own. But some people do not get better without treatment. Follow-up care is a deras part of your treatment and safety. Be sure to make and go to all appointments, and call your doctor if you are having problems. It's also a good idea to know your test resultsand keep a list of the medicines you take. How can you care for yourself at home? Learn about antidepressant medicines Antidepressant medicines can improve or end the symptoms of depression. You may need to take the medicine for at least 6 months, and often longer. Keep taking your medicine even if you feel better. If you stop taking it too soon, your symptoms may come back or get worse. You may start to feel better within 1 to 3 weeks of taking antidepressant medicine. But it can takeas many as 6 to 8 weeks to see more improvement. Talk to your doctor if you have problems with yourmedicine or if you do not notice any improvement after 3 weeks. Antidepressants can make you feel tired, dizzy, or nervous. Some people have dry mouth, constipation, headaches, sexual problems, an upset stomach, or diarrhea. Many of these side effects are mild and go away on their own after you take the medicine for a few weeks. Some may last longer. Talk to your doctor if side effects bother you too much. You might be able to try a different medicine. If youare or , talk to your doctor about what medicines you can take. Learn about counseling In many cases, counseling can work as well as medicines to treat mild to moderate depression. Counseling is done by licensed mental health providers, such as psychologists, social workers, and some types of nurses. It can be done in one-on-one sessions or in a group setting. Many people find group sessions helpful. Cognitive-behavioral therapy is a type of counseling. In this treatment therapy, you learn how to see and change unhelpful thinking styles that may be adding to your depression. Counseling and medicines often work well when used together. To manage depression Be physically active. Getting 30 minutes of exercise each day is good for your body and your mind. Begin slowly if it is hard for you to get started. If you already exercise, keep it up. Plan something pleasant for yourself every day. Include activities that you have enjoyed in the past. Get enough sleep. Talk to your doctor if you have problems sleeping. Eat a balanced diet. If you do not feel hungry, eat small snacks rather than large meals. Do not drink alcohol, use illegal drugs, or take medicines that your doctor has not prescribed for you. They may interfere with your treatment. Spend time with family and friends. It may help to speak openly about your depression with people you trust. Take your medicines exactly as prescribed. Call your doctor if you think you are having a problem with your medicine. Do not make major life decisions while you are depressed. Depression may change the way you think. You will be able to make better decisions after you feel better. Think positively. Challenge negative thoughts with statements such as I am hopeful; Things will get better; and I can ask for the help I need. Write down these statements and read them often, even if you don't believe them yet. Be patient with yourself. It took time for your depression to develop, and it will take time for your symptoms to improve. Do not take on too much or be too hard on yourself. Learn all you can about depression from written and online materials. Check out behavioral health classes to learn more about dealing with depression. Keep the numbers for these national suicide hotlines: 2-698-010-TALK ( ) and 0-459-PKXCYRK ( ). If you or someone you know talks about suicide or feeling hopeless, get help right away. When should you call for help? Call 911 anytime you think you may need emergency care. For example, call if: You feel you cannot stop from hurting yourself or someone else. Call your doctor now or seek immediate medical care if: You hear voices. You feel much more depressed. Watch closely for changes in your health, and be sure to contact your doctor if: You are having problems with your depression medicine. You are not getting better as expected. Where can you learn more? Log into your personal health record on [email or web address] and enter G693 in the Education box to learn more about Depression Treatment: Care Instructions. Current as of: January 06, 2019 Content Version: 12.3 [id number] [employer]. Care instructions adapted under license by your healthcare professional. If you have questions about a medical condition or this instruction, always ask your healthcare professional. [employer] disclaims any warranty or liability for your use of this information. Anxiety Disorder: Care Instructions Your Care Instructions Anxiety is a normal reaction to stress. Difficult situations can cause you to have symptoms such assweaty palms and a nervous feeling. In an anxiety disorder, the symptoms are far more severe. Constant worry, muscle tension, trouble sleeping, nausea and diarrhea, and other symptoms can make normal daily activities difficult or impossible. These symptoms may occur for no reason, and they can affect your work, school, or social life. Medicines, counseling, and self-care can all help. Follow-up care is a deras part of your treatment and safety. Be sure to make and go to all appointments, and call your doctor if you are having problems. It's also a good idea to know your test resultsand keep a list of the medicines you take. How can you care for yourself at home? Take medicines exactly as directed. Call your doctor if you think you are having a problem with your medicine. Go to your counseling sessions and follow-up appointments. Recognize and accept your anxiety. Then, when you are in a situation that makes you anxious, say vladimir, This is not an emergency. I feel uncomfortable, but I am not in danger. I can keep goingeven if I feel anxious. Be kind to your body: ? Relieve tension with exercise or a massage. ? Get enough rest. ? Avoid alcohol, caffeine, nicotine, and illegal drugs. They can increase your anxiety level and cause sleep problems. ? Learn and do relaxation techniques. See below for more about these techniques. Engage your mind. Get out and do something you enjoy. Go to a [place] movie, or take a walk or hike. Plan your day. Having too much or too little to do can make you anxious. Keep a record of your symptoms. Discuss your fears with a good friend or family member, or join a support group for people with similar problems. Talking to others sometimes relieves stress. Get involved in social groups, or volunteer to help others. Being alone sometimes makes things seemworse than they are. Get at least 30 minutes of exercise on most days of the week to relieve stress. Walking is a good choice. You also may want to do other activities, such as running, swimming, cycling, or playing tennis or team sports. Relaxation techniques Do relaxation exercises 10 to 20 minutes a day. You can play soothing, relaxing music while you do them, if you wish. Tell others in your house that you are going to do your relaxation exercises. Ask them not to disturb you. Find a comfortable place, away from all distractions and noise. Lie down on your back, or sit with your back straight. Focus on your breathing. Make it slow and steady. Breathe in through your nose. Breathe out through either your nose or mouth. Breathe deeply, filling up the area between your navel and your rib cage. Breathe so that your belly goes up and down. Do not hold your breath. Breathe like this for 5 to 10 minutes. Notice the feeling of calmness throughout your whole body. As you continue to breathe slowly and deeply, relax by doing the following for another 5 to 10 minutes: Tighten and relax each muscle group in your body. You can begin at your toes and work your way up to your head. Imagine your muscle groups relaxing and becoming heavy. Empty your mind of all thoughts. Let yourself relax more and more deeply. Become aware of the state of calmness that surrounds you. When your relaxation time is over, you can bring yourself back to alertness by moving your fingers and toes and then your hands and feet and then stretching and moving your entire body. Sometimes people fall asleep during relaxation, but they usually wake up shortly afterward. Always give yourself time to return to full alertness before you drive a car or do anything that might cause an accident if you are not fully alert. Never play a relaxation tape while you drive a car. When should you call for help? Call 911 anytime you think you may need emergency care. For example, call if: You feel you cannot stop from hurting yourself or someone else. Keep the numbers for these national suicide hotlines: 9-921-179-TALK ( ) and 1-168-VPSRDNX ( ). If you or someone you know talks about suicide or feeling hopeless, get help right away. Watch closely for changes in your health, and be sure to contact your doctor if: You have anxiety or fear that affects your life. You have symptoms of anxiety that are new or different from those you had before. Where can you learn more? Log into your personal health record on [email or web address] and enter P754 in the Education box to learn more about Anxiety Disorder: Care Instructions. Current as of: January 06, 2019 Content Version: 12.3 9469-5896 [employer]. Care instructions adapted under license by your healthcare professional. If you have questions about a medical condition or this instruction, always ask your healthcare professional. [employer] disclaims any warranty or liability for your use of this information. Hypothyroidism: Care Instructions Your Care Instructions You have hypothyroidism, which means that your body is not making enough thyroid hormone. This hormone helps your body use energy. If your thyroid level is low, you may feel tired, be constipated, have an increase in your blood pressure, or have dry skin or memory problems. You may also get cold easily, even when it is warm. Women with low thyroid levels may have heavy menstrual periods. A blood test to find your thyroid-stimulating hormone (TSH) level is used to check for hypothyroidism. A high TSH level may mean that you have low thyroid. When your body is not making enough thyroidhormone, TSH levels rise in an effort to make the body produce more. The treatment for hypothyroidism is to take thyroid hormone pills. You should start to feel better in 1 to 2 weeks. But it can take several months to see changes in the TSH level. You will need regular visits with your doctor to make sure you have the right dose of medicine. Most people need treatment for the rest of their lives. You will need to see your doctor regularly to have blood tests and to make sure you are doing well. Follow-up care is a deras part of your treatment and safety. Be sure to make and go to all appointments, and call your doctor if you are having problems. It's also a good idea to know your test resultsand keep a list of the medicines you take. How can you care for yourself at home? Take your thyroid hormone medicine exactly as prescribed. Call your doctor if you think you are having a problem with your medicine. Most people do not have side effects if they take the right amountof medicine regularly. ? Take the medicine 30 minutes before breakfast, and do not take it with calcium, vitamins, or iron. ? Do not take extra doses of your thyroid medicine. It will not help you get better any faster, andit may cause side effects. ? If you forget to take a dose, do NOT take a double dose of medicine. Take your usual dose the next day. Tell your doctor about all prescription, herbal, or rbwl-bkc-syojfcp products you take. Take care of yourself. Eat a healthy diet, get enough sleep, and get regular exercise. When should you call for help? Call 911 anytime you think you may need emergency care. For example, call if: You passed out (lost consciousness). You have severe trouble breathing. You have a very slow heartbeat (less than 60 beats a minute). You have a low body temperature (95 F or below). Call your doctor now or seek immediate medical care if: You feel tired, sluggish, or weak. You have trouble remembering things or concentrating. You do not begin to feel better 2 weeks after starting your medicine. Watch closely for changes in your health, and be sure to contact your doctor if you have any problems. Where can you learn more? Log into your personal health record on [email or web address] and enter N862 in the Education box to learn more about Hypothyroidism: Care Instructions. Current as of: March 08, 2019 Content Version: 12.3 [employer]. Care instructions adapted under license by your healthcare professional. If you have questions about a medical condition or this instruction, always ask your healthcare professional. [employer] disclaims any warranty or liability for your use of this information. documented in this encounter* Patient Instructions* Marika Ortega CNP - 03/23/2020 10:31 AM EDT Leg and Ankle Edema: Care Instructions Your Care Instructions Swelling in the legs, ankles, and feet is called edema. It is common after you sit or stand for a while. Long plane flights or car rides often cause swelling in the legs and feet. You may also have swelling if you have to stand for long periods of time at your job. Problems with the veins in the legs (varicose veins) and changes in hormones can also cause swelling. Sometimes the swelling in the ankles and feet is caused by a more serious problem, such as heart failure, infection, blood clots, or liver or kidney disease. Follow-up care is a deras part of your treatment and safety. Be sure to make and go to all appointments, and call your doctor if you are having problems. It's also a good idea to know your test resultsand keep a list of the medicines you take. How can you care for yourself at home? If your doctor gave you medicine, take it as prescribed. Call your doctor if you think you are having a problem with your medicine. Whenever you are resting, raise your legs up. Try to keep the swollen area higher than the level ofyour heart. Take breaks from standing or sitting in one position. ? Walk around to increase the blood flow in your lower legs. ? Move your feet and ankles often while you stand, or tighten and relax your leg muscles. Wear support stockings. Put them on in the morning, before swelling gets worse. Eat a balanced diet. Lose weight if you need to. Limit the amount of salt (sodium) in your diet. Salt holds fluid in the body and may increase swelling. When should you call for help? [id number] anytime you think you may need emergency care. For example, call if: You have symptoms of a blood clot in your lung (called a pulmonary embolism). These may include: ? Sudden chest pain. ? Trouble breathing. ? Coughing up blood. Call your doctor now or seek immediate medical care if: You have signs of a blood clot, such as: ? Pain in your calf, back of the knee, thigh, or groin. ? Redness and swelling in your leg or groin. You have symptoms of infection, such as: ? Increased pain, swelling, warmth, or redness. ? Red streaks or pus. ? A fever. Watch closely for changes in your health, and be sure to contact your doctor if: Your swelling is getting worse. You have new or worsening pain in your legs. You do not get better as expected. Where can you learn more? Log into your personal health record on [email or web address] and enter N696 in the Education box to learn more about Leg and Ankle Edema: Care Instructions. Current as of: February 04, 2019 Content Version: 12.5 [employer]. Care instructions adapted under license by your healthcare professional. If you have questions about a medical condition or this instruction, always ask your healthcare professional. [employer] disclaims any warranty or liability for your use of this information. Depression Treatment: Care Instructions Your Care Instructions Depression is a condition that affects the way you feel, think, and act. It causes symptoms such aslow energy, loss of interest in daily activities, and sadness or grouchiness that goes on for a long time. Depression is very common and affects men and women of all ages. Depression is a medical illness caused by changes in the natural chemicals in your brain. It is nota character flaw, and it does not mean that you are a bad or weak person. It does not mean that youare going crazy. It is important to know that depression can be treated. Medicines, counseling, and self-care can all help. Many people do not get help because they are embarrassed or think that they will get over the depression on their own. But some people do not get better without treatment. Follow-up care is a deras part of your treatment and safety. Be sure to make and go to all appointments, and call your doctor if you are having problems. It's also a good idea to know your test resultsand keep a list of the medicines you take. How can you care for yourself at home? Learn about antidepressant medicines Antidepressant medicines can improve or end the symptoms of depression. You may need to take the medicine for at least 6 months, and often longer. Keep taking your medicine even if you feel better. If you stop taking it too soon, your symptoms may come back or get worse. You may start to feel better within 1 to 3 weeks of taking antidepressant medicine. But it can takeas many as 6 to 8 weeks to see more improvement. Talk to your doctor if you have problems with yourmedicine or if you do not notice any improvement after 3 weeks. Antidepressants can make you feel tired, dizzy, or nervous. Some people have dry mouth, constipation, headaches, sexual problems, an upset stomach, or diarrhea. Many of these side effects are mild and go away on their own after you take the medicine for a few weeks. Some may last longer. Talk to your doctor if side effects bother you too much. You might be able to try a different medicine. If youare or , talk to your doctor about what medicines you can take. Learn about counseling In many cases, counseling can work as well as medicines to treat mild to moderate depression. Counseling is done by licensed mental health providers, such as psychologists, social workers, and some types of nurses. It can be done in one-on-one sessions or in a group setting. Many people find group sessions helpful. Cognitive-behavioral therapy is a type of counseling. In this treatment therapy, you learn how to see and change unhelpful thinking styles that may be adding to your depression. Counseling and medicines often work well when used together. To manage depression Be physically active. Getting 30 minutes of exercise each day is good for your body and your mind. Begin slowly if it is hard for you to get started. If you already exercise, keep it up. Plan something pleasant for yourself every day. Include activities that you have enjoyed in the past. Get enough sleep. Talk to your doctor if you have problems sleeping. Eat a balanced diet. If you do not feel hungry, eat small snacks rather than large meals. Do not drink alcohol, use illegal drugs, or take medicines that your doctor has not prescribed for you. They may interfere with your treatment. Spend time with family and friends. It may help to speak openly about your depression with people you trust. Take your medicines exactly as prescribed. Call your doctor if you think you are having a problem with your medicine. Do not make major life decisions while you are depressed. Depression may change the way you think. You will be able to make better decisions after you feel better. Think positively. Challenge negative thoughts with statements such as I am hopeful; Things will get better; and I can ask for the help I need. Write down these statements and read them often, even if you don't believe them yet. Be patient with yourself. It took time for your depression to develop, and it will take time for your symptoms to improve. Do not take on too much or be too hard on yourself. Learn all you can about depression from written and online materials. Check out behavioral health classes to learn more about dealing with depression. Keep the numbers for these national suicide hotlines: 4-299-546-TALK ( ) and 1-534-YFHYEAZ ( ). If you or someone you know talks about suicide or feeling hopeless, get help right away. When should you call for help? [id number] anytime you think you may need emergency care. For example, call if: You feel you cannot stop from hurting yourself or someone else. Call your doctor now or seek immediate medical care if: You hear voices. You feel much more depressed. Watch closely for changes in your health, and be sure to contact your doctor if: You are having problems with your depression medicine. You are not getting better as expected. Where can you learn more? Log into your personal health record on [email or web address] and enter G693 in the Education box to learn more about Depression Treatment: Care Instructions. Current as of: September 11, 2019 Content Version: 12.5 [employer]. Care instructions adapted under license by your healthcare professional. If you have questions about a medical condition or this instruction, always ask your healthcare professional. [employer] disclaims any warranty or liability for your use of this information. Anxiety Disorder: Care Instructions Your Care Instructions Anxiety is a normal reaction to stress. Difficult situations can cause you to have symptoms such assweaty palms and a nervous feeling. In an anxiety disorder, the symptoms are far more severe. Constant worry, muscle tension, trouble sleeping, nausea and diarrhea, and other symptoms can make normal daily activities difficult or impossible. These symptoms may occur for no reason, and they can affect your work, school, or social life. Medicines, counseling, and self-care can all help. Follow-up care is a deras part of your treatment and safety. Be sure to make and go to all appointments, and call your doctor if you are having problems. It's also a good idea to know your test resultsand keep a list of the medicines you take. How can you care for yourself at home? Take medicines exactly as directed. Call your doctor if you think you are having a problem with your medicine. Go to your counseling sessions and follow-up appointments. Recognize and accept your anxiety. Then, when you are in a situation that makes you anxious, say vladimir, This is not an emergency. I feel uncomfortable, but I am not in danger. I can keep goingeven if I feel anxious. Be kind to your body: ? Relieve tension with exercise or a massage. ? Get enough rest. ? Avoid alcohol, caffeine, nicotine, and illegal drugs. They can increase your anxiety level and cause sleep problems. ? Learn and do relaxation techniques. See below for more about these techniques. Engage your mind. Get out and do something you enjoy. Go to a [employer] movie, or take a walk or hike. Plan your day. Having too much or too little to do can make you anxious. Keep a record of your symptoms. Discuss your fears with a good friend or family member, or join a support group for people with similar problems. Talking to others sometimes relieves stress. Get involved in social groups, or volunteer to help others. Being alone sometimes makes things seemworse than they are. Get at least 30 minutes of exercise on most days of the week to relieve stress. Walking is a good choice. You also may want to do other activities, such as running, swimming, cycling, or playing tennis or team sports. Relaxation techniques Do relaxation exercises 10 to 20 minutes a day. You can play soothing, relaxing music while you do them, if you wish. Tell others in your house that you are going to do your relaxation exercises. Ask them not to disturb you. Find a comfortable place, away from all distractions and noise. Lie down on your back, or sit with your back straight. Focus on your breathing. Make it slow and steady. Breathe in through your nose. Breathe out through either your nose or mouth. Breathe deeply, filling up the area between your navel and your rib cage. Breathe so that your belly goes up and down. Do not hold your breath. Breathe like this for 5 to 10 minutes. Notice the feeling of calmness throughout your whole body. As you continue to breathe slowly and deeply, relax by doing the following for another 5 to 10 minutes: Tighten and relax each muscle group in your body. You can begin at your toes and work your way up to your head. Imagine your muscle groups relaxing and becoming heavy. Empty your mind of all thoughts. Let yourself relax more and more deeply. Become aware of the state of calmness that surrounds you. When your relaxation time is over, you can bring yourself back to alertness by moving your fingers and toes and then your hands and feet and then stretching and moving your entire body. Sometimes people fall asleep during relaxation, but they usually wake up shortly afterward. Always give yourself time to return to full alertness before you drive a car or do anything that might cause an accident if you are not fully alert. Never play a relaxation tape while you drive a car. When should you call for help? [id number] anytime you think you may need emergency care. For example, call if: You feel you cannot stop from hurting yourself or someone else. Keep the numbers for these national suicide hotlines: 5-325-682-TALK ( ) and 1-301-LJGPSWS ( ). If you or someone you know talks about suicide or feeling hopeless, get help right away. Watch closely for changes in your health, and be sure to contact your doctor if: You have anxiety or fear that affects your life. You have symptoms of anxiety that are new or different from those you had before. Where can you learn more? Log into your personal health record on [email or web address] and enter P754 in the Education box to learn more about Anxiety Disorder: Care Instructions. Current as of: September 11, 2019 Content Version: 12.5 [employer]. Care instructions adapted under license by your healthcare professional. If you have questions about a medical condition or this instruction, always ask your healthcare professional. [employer] disclaims any warranty or liability for your use of this information. Knee Pain or Injury: Care Instructions Your Care Instructions Injuries are a common cause of knee problems. Sudden (acute) injuries may be caused by a direct blow to the knee. They can also be caused by abnormal twisting, bending, or falling on the knee. Pain, bruising, or swelling may be severe, and may start within minutes of the injury. Overuse is another cause of knee pain. Other causes are climbing stairs, kneeling, and other activities that use the knee. Everyday wear and tear, especially as you get older, also can cause knee pain. Rest, along with home treatment, often relieves pain and allows your knee to heal. If you have a serious knee injury, you may need tests and treatment. Follow-up care is a deras part of your treatment and safety. Be sure to make and go to all appointments, and call your doctor if you are having problems. It's also a good idea to know your test resultsand keep a list of the medicines you take. How can you care for yourself at home? Be safe with medicines. Read and follow all instructions on the label. ? If the doctor gave you a prescription medicine for pain, take it as prescribed. ? If you are not taking a prescription pain medicine, ask your doctor if you can take an [id number] medicine. Rest and protect your knee. Take a break from any activity that may cause pain. Put ice or a cold pack on your knee for 10 to 20 minutes at a time. Put a thin cloth between the ice and your skin. Prop up a sore knee on a pillow when you ice it or anytime you sit or lie down for the next 3 days.Try to keep it above the level of your heart. This will help reduce swelling. If your knee is not swollen, you can put moist heat, a heating pad, or a warm cloth on your knee. If your doctor recommends an elastic bandage, sleeve, or other type of support for your knee, wear it as directed. Follow your doctor's instructions about how much weight you can put on your leg. Use a cane, crutches, or a walker as instructed. Follow your doctor's instructions about activity during your healing process. If you can do mild exercise, slowly increase your activity. Reach and stay at a healthy weight. Extra weight can strain the joints, especially the knees and hips, and make the pain worse. Losing even a few pounds may help. When should you call for help? [id number] anytime you think you may need emergency care. For example, call if: You have symptoms of a blood clot in your lung (called a pulmonary embolism). These may include: ? Sudden chest pain. ? Trouble breathing. ? Coughing up blood. Call your doctor now or seek immediate medical care if: You have severe or increasing pain. Your leg or foot turns cold or changes color. You cannot stand or put weight on your knee. Your knee looks twisted or bent out of shape. You cannot move your knee. You have signs of infection, such as: ? Increased pain, swelling, warmth, or redness. ? Red streaks leading from the knee. ? Pus draining from a place on your knee. ? A fever. You have signs of a blood clot in your leg (called a deep vein thrombosis), such as: ? Pain in your calf, back of the knee, thigh, or groin. ? Redness and swelling in your leg or groin. Watch closely for changes in your health, and be sure to contact your doctor if: You have tingling, weakness, or numbness in your knee. You have any new symptoms, such as swelling. You have bruises from a knee injury that last longer than 2 weeks. You do not get better as expected. Where can you learn more? Log into your personal health record on [email or web address] and enter K195 in the Education box to learn more about Knee Pain or Injury: Care Instructions. Current as of: February 04, 2019 Content Version: 12.5 [id number] [employer]. Care instructions adapted under license by your healthcare professional. If you have questions about a medical condition or this instruction, always ask your healthcare professional. [employer] disclaims any warranty or liability for your use of this information. documented in this encounter* Patient Instructions* Marika Ortega CNP - 11/11/2018 1:58 PM EDT We will contact you with the results of your blood work with a return to the office. Please continue take all medications as ordered. 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) - Primary Hypothyroidism, unspecified type Dermatitis Contact dermatitis and other eczema, due to unspecified cause Pain of right thumb Acute non-recurrent sinusiti s, unspecified location Diagnosis Preoperative evaluation of a medical condition to rule out surgical contraindications (TAR required) - Primary Uterine leiomyoma, unspecifi ed location Menorrhagia with regular cyc le Pre-operative cardiovascular examination Acquired hypothyroidism Unspecified hypothyroidism Iron deficiency anemia due t o chronic blood loss Iron deficiency anemia secondary to blood loss (chronic) Risk factors for obstructive sleep apnea Moderate obesity No contraindication to deep vein thrombosis (DVT) prophylaxis Diagnosis Cellulitis of right lower le g - Primary Acquired hypothyroidism Unspecified hypothyroidism Diagnosis Localized edema - Primary Edema Skin lesion of right leg Unspecified disorder of skin and subcutaneous tissue Diagnosis Well female exam with routine gynecological exam- Primary Routine gynecological examination Skin rash Rash and other nonspecific skin eruption Possible exposure to STD Encounter for lipid screening for cardiovascular disease Hypothyroidism, unspecified type Acquired hypothyroidism Unspecified hypothyroidism Diagnosis Contusion of left knee, initial encounter- Primary Contusion of right hand, initial encounter Diagnosis Viral gastroenteritis- Primary Intestinal infection due to other organism, NEC Diagnosis Abrasion of left cornea, initial encounter- Primary Diagnosis Hypothyroidism, unspecified type- Primary Hypokalemia Hypopotassemia Diagnosis Rectal bleeding Hemorrhage of rectum and anus Family history of colon cancer Family history of malignant neoplasm of gastrointestinal tract Diagnosis Rectal bleed- Primary Hemorrhage of rectum and anus Diagnosis Viral syndrome- Primary Unspecified viral infection, in conditions classified elsewhere and of unspecified site Diagnosis Dyspnea, unspecified type Acute non-recurrent maxillary sinusitis Moderate asthma with acute exacerbation, unspecified whether persistent Diagnosis Contusion of left elbow, initial encounter Diagnosis Hypothyroidism, unspecified type Anxiety and depression Localized edema Edema Diagnosis Cellulitis of right lower extremity Diagnosis Strain of left knee, initial encounter Diagnosis Diarrhea of presumed infectious origin Acute pain of left knee Localized edema Edema Anxiety and depression Diagnosis Hypothyroidism, unspecified type Diagnosis Vagina itching- Primary Pruritus of genital organs Skin rash Rash and other nonspecific skin eruption Current severe episode of major depressive disorder without psychotic features without prior episode (HCC) Hypothyroidism, unspecified type Diagnosis Urinary tract infection without hematuria, site unspecified- Primary Diagnosis Localized edema Edema Diagnosis Sprain of left knee, unspecified ligament, initial encounter- Primary Diagnosis Urinary incontinence, unspecified type Localized edema Edema Anxiety and depression Diagnosis Hypothyroidism, unspecified type Diagnosis Left knee pain, unspecified chronicity Knee instability, left Discharge Instructions The following attachments cannot be sent through Care Everywhere. * PELVIC LAPAROSCOPY: POST-OP (PRYDEINIG) * LAPAROSCOPIC HYSTERECTOMY: POST-OP (PRYDEINIG) in this encounter* Attachments The following attachments cannot be sent through Care Everywhere. * Contusion: Hand (Beninese) * Blood Pressure: Elevated (Beninese) in this encounter* Attachments The following attachments cannot be sent through Care Everywhere. * Gastroenteritis (Beninese) documented in this encounter* Attachments The following attachments cannot be sent through Care Everywhere. * Corneal Scratches (Beninese) documented in this encounter* Attachments The following attachments cannot be sent through Care Everywhere. * Viral Infections (Beninese) documented in this encounter* Instructions* Kirill Milian MD - 08/25/2019 If unable to follow-up with the physician/clinic recommended above, please see an Urgent Care Clinic for re-evaluation within the same number of days. Return to the nearest emergency department at any time if there is: any new, returning or worsening symptoms chest discomfort or difficulty breathing that does not resolve with your prescribed breathing treatment(s) new or changing rash fever > 100.4 (or feeling like there is a high fever if you don't have a thermometer) uncontrollable shaking chills difficulty following up as recommended or any other concerns about your condition or treatment. best regards, Kirill Milian MD * Attachments The following attachments cannot be sent through Care Everywhere. * Asthma: Adult (Beninese) * Sinusitis (Beninese) documented in this encounter* Instructions* Martin Nation DO - 09/21/2019 Wear sling as needed for comfort. Take Anaprox as directed for pain. Apply ice to painful area 20 to 30 minutes every 2 hours as needed. Avoid any heavy lifting, bending, or pulling using left arm/elbow. Return if problems. Follow-up with occupational health ([employer]) tomorrow for further evaluation and treatment. * Attachments The following attachments cannot be sent through Care Everywhere. * Bruises (Beninese) documented in this encounter* Instructions* Leonid Echols, DO - 03/10/2020 Take medications as prescribed. Follow-up with your doctor within 1 to 2 days for recheck. Return to the ED immediately for any new or worsening symptoms or concerns to include worsening pain, fever,increasing redness or any other concerns. * Attachments The following attachments cannot be sent through Care Everywhere. * Cellulitis (Beninese) documented in this encounter* Attachments The following attachments cannot be sent through Care Everywhere. * Knee Pain or Injury (Beninese) documented in this encounter* Instructions* Martin Nation, DO - 10/29/2020 Keep the Faheem wrap on for at least the next week. Increase weightbearing only slowly as tolerated. Apply ice to painful area 30 minutes every 3-4 hours as needed. Follow-up with orthopedics, Dr. Rodriguez continued problems after 1 week and consider MRI as needed for further evaluation of ligamentousinjury. Take medication as directed for pain. Also take Tylenol every 6 hours as needed for pain. Follow-up with your primary care provider for any additional medications. * Attachments The following attachments cannot be sent through Care Everywhere. * Knee Sprain (Beninese) * RICE: General Info (Beninese) documented in this encounter History of Present Illness * Marika Ortega, JULIA - 08/19/2018 11:16 AM EST Subjective Patient ID: Neda Lawrence is a 42 y.o. female. Patient presents to the office today for a well female exam. Patient is s/p hysterectomy and had sex for the first time since surgery. Vaginal Discharge The patient's primary symptoms include a genital odor and vaginal discharge. The patient's pertinent negatives include no genital itching, genital lesions, genital rash, missed menses, pelvic pain orvaginal bleeding. This is a new problem. The current episode started in the past 7 days. The problem occurs constantly. The problem has been waxing and waning. The patient is experiencing no pain. The problem affects both sides. She is not . Pertinent negatives include no abdominal pain, anorexia, back pain, chills, constipation, diarrhea, discolored urine, dysuria, fever, flank pain, frequency, headaches, hematuria, joint pain, joint swelling, nausea, painful intercourse, rash, sore throat, urgency or vomiting. The vaginal discharge was copious, watery and milky. There has been no bleeding. She has not been passing clots. She has not been passing tissue. The symptoms are aggravatedby tactile pressure, intercourse and activity. Treatments tried: Olgaistat She is sexually active. It is unknown whether or not her partner has an STD. She uses hysterectomy for contraception. Review of Systems Constitutional: Negative for activity change, appetite change, chills, fatigue and fever. HENT: Negative for sore throat. Respiratory: Negative for cough and shortness of breath. Cardiovascular: Negative for chest pain and palpitations. Gastrointestinal: Negative for abdominal pain, anorexia, constipation, diarrhea, nausea and vomiting. Genitourinary: Positive for vaginal discharge. Negative for difficulty urinating, dysuria, flank pain, frequency, hematuria, menstrual problem, missed menses, pelvic pain, urgency, vaginal bleeding and vaginal pain. Musculoskeletal: Negative for back pain, gait problem and joint pain. Skin: Negative for color change and rash. Neurological: Negative for dizziness, facial asymmetry, light-headedness, numbness and headaches. Psychiatric/Behavioral: Negative for agitation. The patient is not nervous/anxious. Objective Physical Exam Constitutional: She is oriented to person, place, and time. Vital signs are normal. She appears well-developed and well-nourished. HENT: Head: Normocephalic. Right Ear: External ear normal. Left Ear: External ear normal. Eyes: Conjunctivae are normal. Neck: Normal range of motion. Pulmonary/Chest: Effort normal. Patient refused breast exam. Abdominal: Soft. Normal appearance. There is no tenderness. Genitourinary: Uterus normal. No breast swelling or tenderness. There is no rash, tenderness, lesion or injury on the right labia. There is no rash, tenderness, lesion or injury on the left labia. Cervix exhibits discharge. Right adnexum displays no tenderness. Left adnexum displays no tenderness. No erythema or tenderness in the vagina. No signs of injury around the vagina. Vaginal discharge found. Musculoskeletal: Normal range of motion. Neurological: She is alert and oriented to person, place, and time. Skin: Skin is warm, dry and intact. Psychiatric: She has a normal mood and affect. Her speech is normal and behavior is normal. Judgment and thought content normal. Cognition and memory are normal. Vitals reviewed. Assessment/Plan: Diagnoses and all orders for this visit: Well female exam with routine gynecological exam - Comprehensive Metabolic Panel; Future - CBC and Differential; Future - Thinprep Pap Smear - Comprehensive Metabolic Panel - CBC and Differential - CBC Auto Differential Skin rash - fluocinonide (LIDEX) 0.05 % cream; Apply topically 2 (two) times a day . Possible exposure to STD - Chlamydia/GC/Trichomonas Amplified RNA; Future - Genital Aerobic Culture Encounter for lipid screening for cardiovascular disease - Lipid Panel; Future - Lipid Panel Hypothyroidism, unspecified type - TSH; Future - T4, Free; Future - TSH - T4, Free Acquired hypothyroidism Other orders - fluconazole (DIFLUCAN) 150 MG tablet; Take 1 (one) tablet (150 mg total) by mouth every other dayfor 3 doses . * Aylin Kimble MA - 08/15/2018 8:42 AM EST Venipuncture to RAC successful. Patient tolerated well and no complaints. in this encounter* Marika Ortega CNP - 06/09/2019 6:45 PM EDT OFFICE VISIT PROGRESS NOTE HPI Patient is a 43-year-old female with past medical history of hypothyroidism presents the office today for 6 month follow-up on this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 Speech normal. Behavior: Behavior normal. Behavior is cooperative. Thought Content: Thought content normal. Cognition and Memory: Cognition normal. Judgment: Judgment normal. OARRS/NARxCHECK Report Received and Assessed: No data found Date controlled substance agreement signed: No data found Date of last drug screen: No data found Functional Assessment: No data found The 10-year ASCVD risk score (Valentina PRIYANKA Jr., et al., 2013) is: 0.4% Values used to calculate the score: Age: 44 years Sex: Female Is Non- : No Diabetic: No Tobacco smoker: No Systolic Blood Pressure: 116 mmHg Is BP treated: No HDL Cholesterol: 78 mg/dL Total Cholesterol: 192 mg/dL Assessment/Plan Problem List Items Addressed This Visit Digestive Diarrhea of presumed infectious origin - Primary Stool cultures ordered today as patient is recently been on antibiotics. Possibility of C. difficile cannot be ruled out. Relevant Orders Stool/GI PCR Panel (Completed) Other Anxiety and depression Continue to take Prozac, and buspirone as ordered. Patient to working well for you. Localized edema I would like you to increase your hydrochlorothiazide to 25 mg daily. Please contact the office if your edema does not start to resolve. Relevant Medications hydroCHLOROthiazide (HYDRODIURIL) 25 MG tablet Acute pain of left knee Today I replaced referral to specialty for evaluation/treatment. Their office will contact you to schedule an appointment. If you do not hear from their office in 5-7 business days please contact theoffice. Relevant Orders Ambulatory referral to Orthopedic Surgery Ambulatory Ref to Sg/Viky (PT/OT/ST) Goals None For any new medications prescribed today, patient was educated about indications for the medication, how to take the medication and potential side effects of the medications. Please note: Portions of this chart may have been created with [employer] voice recognition software. Occasional wrong-word or sound-like substitutions may have occurred due to inherent limitations of the voice recognition software. Please read the chart carefully and recognize, using context, where the substitutions have occurred. Depression Screening 01/03/2018 04/04/2018 01/22/2020 03/18/2020 Little interest or pleasure in doing things 1 1 2 1 Feeling down, depressed, or hopeless 1 1 3 1 PHQ-2 Total Score 2 2 5 2 Trouble falling or staying asleep, or sleeping too much 1 1 3 2 Feeling tired or having little energy 2 1 2 2 Poor appetite or overeating 1 1 3 2 Feeling bad about yourself - or that you are a failure or have let yourself or your family down 3 13 2 Trouble concentrating on things, such as reading the newspaper or watching television 2 1 3 2 Moving or speaking so slowly that other people could have noticed. Or the opposite - being so fidgety or restless that you have been moving around a lot more than usual 1 1 3 2 Thoughts that you would be better off , or of hurting yourself in some way 1 1 2 1 PHQ-9 Total Score 13 9 24 15 If you checked off any problems, how difficult have these problems made it for you to do your work,take care of things at home, or get along with other people? Somewhat difficult Somewhat difficult Very difficult Somewhat difficult documented in this encounter* Marika Ortega CNP - 11/11/2018 1:55 PM EDT Subjective Patient ID: Neda Lawrence is a 43 y.o. female. Patient presents the office today on her thyroid and depression. Patient is also complaining of vaginitis. Patient states that her and her boyfriend are continuing to engage in lots of sexual behaviors however she continues to get vaginal itching and discharge. Vaginal Itching The patient's primary symptoms include genital itching and vaginal discharge. This is a new problem. The current episode started in the past 7 days. The problem occurs constantly. The problem has been waxing and waning. The patient is experiencing no pain. The problem affects both sides. She is not. Associated symptoms include painful intercourse. Pertinent negatives include no abdominalpain, anorexia, back pain, chills, constipation, diarrhea, discolored urine, dysuria, fever, flank pain, frequency, headaches, hematuria, joint pain, joint swelling, nausea, rash, sore throat, urgency or vomiting. The vaginal discharge was milky and white. There has been no bleeding. The symptoms are aggravated by intercourse. She has tried antifungals for the symptoms. The treatment provided mild relief. She is sexually active. No, her partner does not have an STD. She uses hysterectomy for contraception. Thyroid Problem Presents for follow-up visit. Patient reports no anxiety, cold intolerance, constipation, depressedmood, diaphoresis, diarrhea, dry skin, fatigue, hair loss, heat intolerance, hoarse voice, leg swelling, menstrual problem, nail problem, palpitations, tremors, visual change, weight gain or weight loss. The symptoms have been stable. Past treatments include levothyroxine. The treatment provided significant relief. Review of Systems Constitutional: Negative for activity change, appetite change, chills, diaphoresis, fatigue, fever,weight gain and weight loss. HENT: Negative for hoarse voice and sore throat. Respiratory: Negative for cough and shortness of breath. Cardiovascular: Negative for chest pain and palpitations. Gastrointestinal: Negative for abdominal pain, anorexia, constipation, diarrhea, nausea and vomiting. Endocrine: Negative for cold intolerance and heat intolerance. Genitourinary: Positive for vaginal discharge. Negative for dysuria, flank pain, frequency, hematuria, menstrual problem and urgency. Musculoskeletal: Negative for back pain and joint pain. Skin: Negative for rash. Neurological: Negative for dizziness, tremors, facial asymmetry, light- headedness and headaches. Psychiatric/Behavioral: Negative for agitation. The patient is not nervous/anxious. Objective Physical Exam Constitutional: She is oriented to person, place, and time. Vital signs are normal. She appears well-developed and well-nourished. HENT: Head: Normocephalic. Right Ear: External ear normal. Left Ear: External ear normal. Cardiovascular: Normal rate, regular rhythm and normal heart sounds. Pulmonary/Chest: Effort normal and breath sounds normal. Musculoskeletal: Normal range of motion. Neurological: She is alert and oriented to person, place, and time. Skin: Skin is warm and dry. Psychiatric: She has a normal mood and affect. Her speech is normal and behavior is normal. Judgment and thought content normal. Cognition and memory are normal. Vitals reviewed. Assessment/Plan: Diagnoses and all orders for this visit: Skin rash - fluocinonide (LIDEX) 0.05 % cream; Apply topically 2 (two) times a day . Current severe episode of major depressive disorder without psychotic features without prior episode (HCC) - escitalopram oxalate (LEXAPRO) 10 MG tablet; Take 1 (one) tablet (10 mg total) by mouth daily . Hypothyroidism, unspecified type - T4, Free - TSH Other orders - fluconazole (DIFLUCAN) 150 MG tablet; Take 1 (one) tablet (150 mg total) by mouth every other day. in this encounter* Liz Wallace CNP - 11/14/2020 8:00 AM EDT [facility] [address] [facility] [address] [facility] [id number] Impression Possible meniscal and/or ligamentous injury, left medial Plan: The above diagnosis as well as the options for treatment were discussed with Neda in clinictoday. Neda would like to proceed forward with formal physical therapy. She would also like a hinged wrap knee brace due to her instability, one was provided today, we discussed removing at bed time. We will follow-up in 6 weeks sooner if signs and symptoms worsen, if no improvement or worsening of symptoms we will discuss a MRI. Neda Lawrence was agreeable to the plan and there were no learning barriers encountered. Follow-Up: 6 weeks Subjective History: Neda Lawrence is a 45 y.o. female seen as a new patient for left knee pain. Symptoms began a couple of years ago when she tripped and fell walking up stairs. More recently she was walking and felt a pop. She did not fall and was able to weight bear and ambulate, she states I had to drag my foot at first when she had felt the pop. Symptoms are located medially occur throughout the day, andare described as sharp. States she will have intermittent swelling on the medial side. Neda states the knee has popping clicking, cracking, catching and instability. States it feels like it is going to give out. Pain is rated as 4-5/10 but will increase to a 7-8/10 with activity and is aggravated by fast paced walking and stairs. This patient has attempted to relieve symptoms with ice, faheem wrap, topicals and naproxen which have provided some relief. Additional formal treatment measures include: Evaluation by the ED 10/29/2020 and 03/17/2020, review of notes. Formal physical therapy for this left knee pain has not been attempted. She is a former smoker. History: Past Medical History: Diagnosis Date Anemia Anxiety Asthma last inhaler use years ago Complication of anesthesia Depression Endometriosis Maureen-Mccullough infection Hypothyroidism 2016 still adjusting dose Obesity (BMI 30.0-34.9) PONV (postoperative nausea and vomiting) due to eating prior to surgery Varicose veins of legs ?? 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 LAPAROSCOPY age 19s endometriosis Family History Problem Relation Age of Onset No Known Problems Mother No Known Problems Father No Known Problems Sister No Known Problems Brother Surgical complications Neg Hx Anesthesia problems Neg Hx Heart disease Neg Hx Clotting disorder Neg Hx Deep vein thrombosis Neg Hx Pulmonary embolism Neg Hx Social History Tobacco Use Smoking status: Former Smoker Quit date: 10/04/2009 Years since quittin.1 Smokeless tobacco: Never Used Tobacco comment: 1 pack per week for 5 years-- quit 2009 Substance Use Topics Alcohol use: No Drug use: No Outpatient Medications as of 11/14/2020 Medication Sig FLUoxetine (PROZAC) 20 MG capsule Take 1 (one) capsule (20 mg total) by mouth daily . hydroCHLOROthiazide (HYDRODIURIL) 25 MG tablet Take 1 (one) tablet (25 mg total) by mouth daily . jtgz-YV-nuz-hyr-ILH-NNEW-be-mv 1.5 mg iron- 8.73 mg CpID Take by mouth . L.acidophilus,helvet-B.bifidum (Acidophilus Probiotic Complex) 250 million cell cap Take 1 capsule by mouth daily . levothyroxine (SYNTHROID, LEVOTHROID) 88 MCG tablet Take 1 (one) tablet (88 mcg total) by mouth every morning . naproxen sodium (ANAPROX) 550 MG tablet Take 1 (one) tablet (550 mg total) by mouth 2 (two) times aday as needed (pain) . oxybutynin (DITROPAN-XL) 10 MG 24 hr tablet Take 1 (one) tablet (10 mg total) by mouth daily . nitrofurantoin, macrocrystal-monohydrate, (Macrobid) 100 MG capsule Take 1 (one) capsule (100 mg total) by mouth 2 (two) times a day . (Patient not taking: Reported on 11/14/2020 .) ProAir HFA 90 mcg/actuation inhaler Inhale 2 (two) puffs every 6 (six) hours as needed for wheezing. [DISCONTINUED] Lactobacillus acidophilus 0.5 mg (100 million cell) Tab Take 1 capsule by mouth daily . Allergies Allergen Reactions Amoxicillin Hydrocortisone Itching Penicillin G Causes yeast infection Latex Rash Contact dermatitis Review of Systems: A review of systems was completed by Neda covarrubias and reviewed by Liz Wallace CNP during thevisit. Negative for chest pain or shortness of breath, lightheadedness or dizziness. Objective Exam: Vitals: 11/14/20 0751 BP: 100/72 BP Location: Right arm Patient Position: Sitting BP Cuff Size: Adult Pulse: 78 Weight: 109.8 kg (242 lb) Height: 5' 7 General: no acute distress Appearance: Appears stated age Neurologic: Patient is alert and oriented x3 pleasant and cooperative. Mood and affect: Normal HEENT: normocephalic, attraumatic. Extraocular muscles grossly normal. Pulm: respiratory effort is normal Left Knee - Physical Exam Gait: ambulates without an assistive device. Tenderness to palpation over the medial joint line and medial aspect. range of motion 0-120 degrees. Full strength. Skin is dry and intact, no erythema no increased warmth. Distal neurovascular status grossly intact. No signs or symptoms of DVT, left calf soft, negative for erythema or increased warmth. Knee Test Anterior Drawer: Negative Posterior Drawer: Negative Varus Stress: Negative Valgus Stress: Positive pain Fabián's: Negative Thessaly: Positive Patella Grind: Positive Left Hip Internal and external rotation without limitation. Left Ankle ROM without limitations. Radiographs: Left knee Xrays from 10/29/20 were reviewed today in clinic, formal results: FINDINGS: No acute fracture is seen. Alignment of the osseous structures is normal. The joint spaces are preserved. The soft tissues are unremarkable. No significant joint effusion is seen. IMPRESSION: No evidence for acute fracture or malalignment documented in this encounter Summary Purpose Family History No Family History Records FoundNo Family History Records FoundNo Family History Records FoundNo Family History Records FoundNo Family History Records FoundNo Family History Records FoundNo Family History Records FoundNo Family History Records Found Advance Directives No Advanced Directives Records FoundDocuments on File Type Date Recorded Patient Stewardesses Teacher Expl anation Advance Directives and Livin g Will 02/19/2019 5:14 PM Documents on File Type Date Recorded Patient Stewardesses Teacher Expl anation Advance Directives and Livin g Will 02/19/2019 5:14 PM Documents on File Type Date Recorded Patient Stewardesses Teacher Expl anation Advance Directives and Livin g Will 06/19/2019 7:53 AM Advance Directives and Livin g Will 08/25/2019 12:57 AM Documents on File Type Date Recorded Patient Stewardesses Teacher Expl anation Advance Directives and Livin g Will 06/19/2019 7:53 AM Advance Directives and Livin g Will 09/21/2019 9:38 PM Documents on File Type Date Recorded Patient Stewardesses Teacher Expl anation Advance Directives and Livin g Will 06/19/2019 7:53 AM Advance Directives and Livin g Will 03/10/2020 4:12 PM Documents on File Type Date Recorded Patient Stewardesses Teacher Expl anation Advance Directives and Livin g Will 06/19/2019 7:53 AM Advance Directives and Livin g Will 03/17/2020 5:33 PM Documents on File Type Date Recorded Patient Stewardesses Teacher Expl anation Advance Directives and Livin g Will 06/19/2019 7:53 AM Advance Directives and Livin g Will 03/17/2020 5:33 PM Documents on File Type Date Recorded Patient Stewardesses Teacher Expl anation Advance Directives and Livin g Will 06/19/2019 7:53 AM Advance Directives and Livin g Will 10/29/2020 2:22 PM Documents on File Type Date Recorded Patient Stewardesses Teacher Expl anation Advance Directives and Livin g Will 06/19/2019 7:53 AM Documents on File Type Date Recorded Patient Stewardesses Teacher Expl anation Advance Directives and Livin g Will 06/19/2019 7:53 AM Advance Directives and Livin g Will 10/29/2020 2:22 PM Documents on File Type Date Recorded Patient Stewardesses Teacher Expl anation Advance Directives and Livin g Will 10/29/2020 2:22 PM Advance Directives and Livin g Will 06/19/2019 7:53 AM Documents on File Type Date Recorded Patient Stewardesses Teacher Expl anation Advance Directives and Livin g Will 10/29/2020 2:22 PM Advance Directives and Livin g Will 06/19/2019 7:53 AM Documents on File Type Date Recorded Patient Stewardesses Teacher Expl anation Advance Directives and Livin g Will 04/05/2021 11:05 PM Advance Directives and Livin g Will 06/19/2019 7:53 AM Documents on File Type Date Recorded Patient Stewardesses Teacher Expl anation Advance Directives and Livin g Will 04/21/2021 11:05 PM Advance Directives and Livin g Will 06/19/2019 7:53 AM Documents on File Type Date Recorded Patient Stewardesses Teacher Expl anation Advance Directives and Livin g Will 04/28/2021 11:05 PM Advance Directives and Livin g Will 06/19/2019 7:53 AM Documents on File Type Date Recorded Patient Stewardesses Teacher Expl anation Advance Directives and Livin g Will 05/11/2021 11:05 PM Advance Directives and Livin g Will 06/19/2019 7:53 AM Documents on File Type Date Recorded Patient Stewardesses Teacher Expl anation Advance Directives and Livin g Will 07/12/2021 11:42 AM Advance Directives and Livin g Will 06/19/2019 7:53 AM Documents on File Type Date Recorded Patient Stewardesses Teacher Expl anation Advance Directives and Livin g Will 09/18/2021 2:08 PM Advance Directives and Livin g Will 06/19/2019 7:53 AM Documents on File Type Date Recorded Patient Stewardesses Teacher Expl anation Advance Directives and Livin g Will 09/18/2021 2:08 PM Advance Directives and Livin g Will 06/19/2019 7:53 AM Reason for Referral Status Reason Specialty Diagnoses / Procedures Referred By Contact Referred To Contact Authorized Specialty Services Required/Patient 's Best Interest Radiology Diagnoses Hypothyroidism, unspecified type Procedures US Soft Tissue Neck Marika Ortega, [employer] [address] [place] [address] Status Reason Specialty Diagnoses / Procedures Referred By Contact Referred To Contact Authorized Rehabilitation Diagnoses Acute pain of left knee Marika Ortega, [employer] [address] [place] [address] [facility] [address] [place] [id number] Status Reason Specialty Diagnoses / Procedures Referred By Contact Referred To Contact Authorized Specialty Services Required/Patie nt's Best Interest Orthopedics / Orthopedic Surgery Diagnoses Acute pain of left knee Marika Ortega, [employer] [address] [place] [address] [facility] [address] [place] [address] [place] [address] Status Reason Specialty Diagnoses / Procedures Referred By Contact Referred To Contact Closed Specialty Services Required/Patient' s Best Interest Radiology Diagnoses Hypothyroidism, unspecified type Procedures US Soft Tissue Neck Marika Ortega, [employer] RE[employer]ER [address] [place] [address] Status Reason Specialty Diagnoses / Procedures Referred By Contact Referred To Contact Authorized Patient Preference Rehab Diagnoses Left knee pain, unspecified chronicity Knee instability, left MadisonLiz morrison M, [employer]ER [address] [place] [address] Status Reason Specialty Diagnoses / Procedures Referre d By Contact Referred To Contact Closed Diagnoses Urinary incontinence, unspecified type Marika Ortega, [employer] RE[employer]ACER [address] [place] [address] Status Reason Specialty Diagnoses / Procedures Referred By Contact Referred To Contact Authorized Specialty Services Required/Patien t's Best Interest Cardiology Diagnoses Chest pain, unspecified type Procedures ECG 12 Lead Marika Ortega, JULIA [address] [place] [id number] Specialty Diagnoses / Procedures Referred By Contac t Referred To Contact Radiology Diagnoses Acute left flank pain Procedures CT Kidney Stone Margie Mirian, [employer]ER [address] [place], [place] [phone] Referral ID Status Reason Start Date Expiration Date V isits Requested Visits Authorized [id number] New Request 11/14/2021 11/14/2022 1 1 Specialty Diagnoses / Procedures Referred By Contac t Referred To Contact Marika Ortega CNP [address] [address] [place], [place] [phone] Referral ID Status Reason Start Date Expiration Date Visits Re quested Visits Authorized [id number] Closed 1 1 Specialty Diagnoses / Procedures Referred By Contac t Referred To Contact Radiology Diagnoses Screening mammogram for breast cancer Procedures Mammography Screening Bill Bilateral Marika Ortega CNP [address] [facility] [address] [place] [id number] Referral ID Status Reason Start Date Expiration Date Visits Requested Visits Authorized [id number] Pending Review Specialty Services Required/Pat ient's Best Interest 12/27/2021 12/27/2022 1 1 Specialty Diagnoses / Procedures Referred By Contac t Referred To Contact Diagnoses Localized edema Marika Ortega, JULIA [address] [place], [place] [phone] Referral ID Status Reason Start Date Expiration Date Visits Re quested Visits Authorized [id number] Closed 1 1 Referral ID Status Reason Start Date Expiration Date Visits Requested Visits Authorized [id number] Pending Review Specialty Services Required/Pat ient's Best Interest 02/06/2024 02/05/2025 1 1 Additional Source Comments Caron Loomis, DO - 10/04/2017 6:56 AM Александр Jenkins, DO - 10/04/2017 6:36 AM EST H&P Notes (unrecognized sect ion and content) INTERVAL HISTORY AND PHYSICAL Patient Name: Neda Lawrence Admit Date: [id number] MR #: [id number] : 1975 The H&P has been reviewed and the patient has been examined. I concur with the findings of the H&P. There are no significant changes. It is appropriate to proceed with the planned procedure. Caron Loomis, DO 10/04/2017 6:56 AM Formatting of this note may be different from the original. Assessment and Plan 1. Preoperative evaluation of a medical condition to rule out surgical contraindications (TAR required) Preoperative medical risk stratification indicates that the patient is at acceptable risk for elective/major surgery-TOTAL ABDOMINAL HYSTERECTOMY ROBOTIC POSSIBLE BILATERAL SALPINGECTOMY-OOPHERECTOMY--10/04/2017--pending laboratory. 2. Uterine leiomyoma, unspecified location 3. Menorrhagia with regular cycle 4. Pre-operative cardiovascular examination This patient has no active cardiac conditions and would be considered at a low risk for a major adverse cardiac event (MACE) based on a revised cardiac risk index (RCRI) score of 0. This patient has an activity level greater than 4 METS and would be considered at acceptable cardiac risk based on the 2014 [place] (ACC/AHA) guideline on Perioperative Cardiovascular Evaluation and Management of Patients Undergoing Noncardiac Surgery. 5. Acquired hypothyroidism Controlled on levothyroxine. 6. Iron deficiency anemia due to chronic blood loss On chronic ferrous sulfate preoperative hemoglobin ordered. 7. Risk factors for obstructive sleep apnea The patient was noted to have risk factors for obstructive sleep apnea as noted on screening today in the preoperative area assesment. This would place the patient at risk for postoperative respiratory compromise/hypoxia. Close respiratory monitoring and pulse oximetry monitoring should be instituted postoperatively. 8. Moderate obesity Body mass index is 32.89 kg/m . 9. No contraindication to deep vein thrombosis (DVT) prophylaxis Deep venous thrombosis prophylaxis per primary service. Recommend: 2011 Antithrombotic therapy for VTE disease: Antithrombotic Therapy and Prevention of Thrombosis, 9th ed: [place] Evidence- Based Clinical Practice Guidelines. Chief Complaint Patient presents with Pre-operative Medical Risk Stratification History of Present Illness Neda Lawrence is a 42 y.o. female who presents for preoperative medical risk stratification consult at the request of Jose Vigil MD prior to TOTAL ABDOMINAL HYSTERECTOMY ROBOTIC POSSIBLE BILATERAL SALPINGECTOMY-OOPHERECTOMY--10/04/2017--. States irregular heavy, severely painful menses for past 6 months with resulting anemia. The patient describes the pain as being suprapubic/pelvic in location, and sharp in character. Evaluation noted uterine fibroids. The patient denies any chest pain or chest heaviness. In addition, the patient states that she is able to walk up a flight of steps without becoming short of breath. Patient denies any prior history of postoperative nausea, postoperative sedation or any other anesthetic complications. Please see below regarding status of active medical conditions and assessment and plan regarding details of preoperative medical risk stratification. Past Medical History: Diagnosis Date Anemia Asthma last inhaler use years ago Complication of anesthesia Endometriosis Hypothyroidism 2017 still adjusting dose Obesity (BMI 30.0-34.9) PONV (postoperative nausea and vomiting) due to eating prior to surgery Varicose veins of legs ?? varicose veins Past Medical History Pertinent Negatives: Diagnosis Date Noted Bleeding disorder (HCC) 10/04/2017 Coronary artery disease 10/04/2017 Deep vein thrombosis (HCC) 10/04/2017 Family history of bleeding disorder 10/04/2017 Glaucoma 10/04/2017 History of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 Hypothyroidism 2017 still adjusting dose Obesity (BMI 30.0-34.9) PONV (postoperative nausea and vomiting) due to eating prior to surgery Varicose veins of legs ?? 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 Family History Problem Relation Age of Onset No Known Problems Mother No Known Problems Father No Known Problems Sister No Known Problems Brother Surgical complications Neg Hx Anesthesia problems Neg Hx Heart disease Neg Hx Clotting disorder Neg Hx Deep vein thrombosis Neg Hx Pulmonary embolism Neg Hx Social History Socioeconomic History Marital status: Spouse name: Not on file Number of children: Not on file Years of education: Not on file Highest education level: Not on file Social Needs Financial resource strain: Not on file Food insecurity - worry: Not on file Food insecurity - inability: Not on file Transportation needs - medical: Not on file Transportation needs - non-medical: Not on file Occupational History Not on file Tobacco Use Smoking status: Former Smoker Last attempt to quit: 10/04/2009 Years since quittin.1 Smokeless tobacco: Never Used Tobacco comment: 1 pack per week for 5 years-- quit 2009 Substance and Sexual Activity Alcohol use: No Drug use: No Sexual activity: Yes Partners: Male control/protection: Surgical Other Topics Concern Not on file Social History Narrative Not on file Previous Medications Medication Sig escitalopram oxalate (LEXAPRO) 10 MG tablet Take 1 (one) tablet (10 mg total) by mouth daily . fluconazole (DIFLUCAN) 150 MG tablet Take 1 (one) tablet (150 mg total) by mouth every other day . fluocinonide (LIDEX) 0.05 % cream Apply topically 2 (two) times a day . hydroCHLOROthiazide (MICROZIDE) 12.5 mg capsule Take 1 (one) capsule (12.5 mg total) by mouth daily. Lactobacillus acidophilus 0.5 mg (100 million cell) Tab TAKE 1 CAPSULE BY MOUTH DAILY levothyroxine (SYNTHROID, LEVOTHROID) 88 MCG tablet take 1 tablet by mouth every morning Allergies Allergen Reactions Amoxicillin Hydrocortisone Itching Penicillin G Causes yeast infection Latex Rash Contact dermatitis Review of Systems Gastrointestinal: Positive for diarrhea, nausea and vomiting. All other systems reviewed and are negative. Patient Vitals for the past 24 hrs: BP Temp Temp src Pulse Resp SpO2 Height Weight 12/09/18 1751 5' 7 117.9 kg (260 lb) 12/09/18 1746 112/85 97.6 F (36.4 C) Oral 86 16 100 % 5' 7 117.9 kg (260 lb) Physical Exam Constitutional: She appears well-developed. HENT: Head: Normocephalic. Eyes: Pupils are equal, round, and reactive to light. Cardiovascular: Normal rate, regular rhythm and normal heart sounds. Pulmonary/Chest: Effort normal and breath sounds normal. Abdominal: Soft. Normal appearance and bowel sounds are normal. Neurological: She is alert. Skin: Skin is warm and dry. Capillary refill takes less than 2 seconds. No cyanosis. Psychiatric: She has a normal mood and affect. Her behavior is normal. Abdomen shows no rebound or guarding Laboratory & Radiographic Imaging (if done): Results for orders placed or performed during the hospital encounter of 12/09/18 POC CBC and Differential Result Value Ref Range WBC 10.10 4.50 - 11.00 K/mcL RBC 4.92 4.00 - 5.20 M/mcL Hemoglobin 14.8 12.0 - 16.0 g/dL Hematocrit 43.9 36.0 - 46.0 % MCV 89.2 80.0 - 100.0 fL MCH 30.1 26.0 - 34.0 pg MCHC 33.7 31.0 - 37.0 g/dL RDW - CV 13.4 11.6 - 14.8 % Platelets 230 150 - 400 K/mcL MPV 10.3 9.0 - 15.5 fL Neutrophils 85.3 % Lymphocytes 8.7 % Mixed 6.0 % Neutrophil Abs 8.6 (H) 1.7 - 7.0 K/mcl Lymphocyte Abs 0.9 0.9 - 4.0 K/mcl Mixed Abs 0.6 K/mcl POC Basic Metabolic Panel Result Value Ref Range Glucose 109 (H) 65 - 99 mg/dL BUN 15 8 - 25 mg/dL Creatinine 0.9 0.4 - 1.1 mg/dL Sodium 140 135 - 145 mmol/L Potassium 3.8 3.5 - 5.1 mmol/L Chloride 102 98 - 108 mmol/L TCO2 28 21 - 32 mmol/L Calcium 9.4 8.4 - 10.2 mg/dL No orders to display Procedures MDM Number of Diagnoses or Management Options Diagnosis management comments: Symptoms are most consistent with acute gastroenteritis. Patient has some mild epigastric tenderness with no rebound or guarding. Will await labs and give fluids and IV Zofran make disposition after that. 7:05 PM. Patient is now feeling better and wants to be going home. Patient was likely has symptoms consistent with acute gastroenteritis. We will give her a prescription for Zofran patient will also be advised to take Tylenol and drink fluids. Patient will return to work tomorrow. The patient has been informed that they may have pre-hypertension or hypertension based on a blood pressure reading in the Emergency Department. I recommend that the patient call the primary care provider listed on their discharge instructions or a physician of their choice as soon as possible to arrange follow-up in the next 4 weeks for further evaluation of possible pre-hypertension or hypertension. . Clinical Impression: SNOMED CT(R) 1. Viral gastroenteritis VIRAL GASTROENTERITIS ED Disposition ED Disposition Condition Comment Discharge Stable Neda Lawrence discharged to home/self care in stable condition. Follow-up Information 1. Marika Ortega CNP. Specialty: Nurse Practitioner Why: As needed [address] [facility] [address] Contact information for after-discharge care Follow-up information has not been specified. New Prescriptions ondansetron (ZOFRAN ODT) 4 MG disintegrating tablet Dissolve 1 (one) tablet (4 mg total) on top of tongue every 8 (eight) hours as needed for nausea . Jessica Rojas MD 12/09/18 1907 Physician at bedside. Arrives to ed with c/o n/v/d/ and abdominal pain with dizziness that began today. 8/10 cramping pain. documented in this encounter ED PROVIDER NOTE [facility] EMERGENCY DEPARTMENT NAME: Neda Lawrence AGE: 43 y.o. : 1975 VISIT DATE: 02/19/2019 CSN: [id number] PCP: Marika Ortega CNP Chief Complaint Patient presents with Eye Pain 43-year-old female presents emergency department complaining of left eye irritation burning and discomfort today. 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 She was rubbing her face and I do not know if I got something in my or if I scratched my I am my own. States her tetanus has been up-to-date within the past 5 years. She tried washing her eyes out at home in the shower without significant improvement Past Medical History: Diagnosis Date Anemia Anxiety Asthma last inhaler use years ago Complication of anesthesia Depression Endometriosis Maureen-Mccullough infection Hypothyroidism 2017 still adjusting dose Obesity (BMI 30.0-34.9) PONV (postoperative nausea and vomiting) due to eating prior to surgery Varicose veins of legs ?? 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 Family History Problem Relation Age of Onset No Known Problems Mother No Known Problems Father No Known Problems Sister No Known Problems Brother Surgical complications Neg Hx Anesthesia problems Neg Hx Heart disease Neg Hx Clotting disorder Neg Hx Deep vein thrombosis Neg Hx Pulmonary embolism Neg Hx Social History Socioeconomic History Marital status: Spouse name: Not on file Number of children: Not on file Years of education: Not on file Highest education level: Not on file Occupational History Not on file Social Needs Financial resource strain: Not on file Food insecurity: Worry: Not on file Inability: Not on file Transportation needs: Medical: Not on file Non-medical: Not on file Tobacco Use Smoking status: Former Smoker Last attempt to quit: 10/04/2009 Years since quittin.3 Smokeless tobacco: Never Used Tobacco comment: 1 pack per week for 5 years-- quit 2009 Substance and Sexual Activity Alcohol use: No Drug use: No Sexual activity: Yes Partners: Male control/protection: Surgical Lifestyle Physical activity: Days per week: Not on file Minutes per session: Not on file Stress: Not on file Relationships Social connections: Talks on phone: Not on file Gets together: Not on file Attends bahai service: Not on file Active member of club or organization: Not on file Attends meetings of clubs or organizations: Not on file Relationship status: Not on file Other Topics Concern Not on file Social History Narrative Not on file Previous Medications Medication Sig escitalopram oxalate (LEXAPRO) 10 MG tablet Take 1 (one) tablet (10 mg total) by mouth daily . hydroCHLOROthiazide (MICROZIDE) 12.5 mg capsule Take 1 (one) capsule (12.5 mg total) by mouth daily. levothyroxine (SYNTHROID, LEVOTHROID) 88 MCG tablet take 1 tablet by mouth every morning fluconazole (DIFLUCAN) 150 MG tablet Take 1 (one) tablet (150 mg total) by mouth every other day . fluocinonide (LIDEX) 0.05 % cream Apply topically 2 (two) times a day . Lactobacillus acidophilus 0.5 mg (100 million cell) Tab TAKE 1 CAPSULE BY MOUTH DAILY ondansetron (ZOFRAN ODT) 4 MG disintegrating tablet Dissolve 1 (one) tablet (4 mg total) on top of tongue every 8 (eight) hours as needed for nausea . Allergies Allergen Reactions Amoxicillin Hydrocortisone Itching Penicillin G Causes yeast infection Latex Rash Contact dermatitis Review of Systems Eyes: Positive for pain and itching. All other systems reviewed and are negative. Patient Vitals for the past 24 hrs: BP Temp Temp src Pulse Resp SpO2 Height Weight 02/19/19 1659 122/77 98.2 F (36.8 C) Oral 72 16 97 % 5' 6.5 117.9 kg (260 lb) Physical Exam Constitutional: She is oriented to person, place, and time. She appears well-developed and well-nourished. No distress (talking on cell phone). HENT: Head: Normocephalic and atraumatic. Right Ear: External ear normal. Left Ear: External ear normal. Nose: Nose normal. Mouth/Throat: Oropharynx is clear and moist. No oropharyngeal exudate. Eyes: EOM are normal. Pupils are equal, round, and reactive to light. Right eye exhibits no discharge. Left eye exhibits no discharge. Left conjunctival injection, no FB, small corneal abrasion to left medial sclera, negative seidels sign, no hypopion, no hyphema, no tear drop pupil Neck: Normal range of motion. Neck supple. Cardiovascular: Normal rate and regular rhythm. Pulmonary/Chest: Effort normal and breath sounds normal. No stridor. Abdominal: Soft. There is no tenderness. Musculoskeletal: Normal range of motion. She exhibits no deformity. Neurological: She is alert and oriented to person, place, and time. No cranial nerve deficit. She exhibits normal muscle tone. Coordination normal. Skin: Skin is warm and dry. Capillary refill takes less than 2 seconds. She is not diaphoretic. No erythema. Psychiatric: She has a normal mood and affect. Her behavior is normal. Nursing note and vitals reviewed. Laboratory & Radiographic Imaging (if done): No results found for this visit on 02/19/19. No orders to display Procedures MDM Number of Diagnoses or Management Options Diagnosis management comments: Patient seen and examined upon arrival. The patient appears to sustained a corneal abrasion from rubbing her eye yesterday. I do not see any foreign bodies within the eye. She states her tetanus shot is been updated within the past 5 years. Plan to send home with erythromycin ophthalmic ointment to prevent bacterial infection and also to send home with Naphcon-A drops and to follow-up with primary care provider for recheck within 1 week. No signs of a globe injury today. The patient has been informed that they may have pre-hypertension or hypertension based on a blood pressure reading in the Emergency Department. I recommend that the patient call the primary care provider listed on their discharge instructions or a physician of their choice as soon as possible to arrange follow-up in the next 4 weeks for further evaluation of possible pre-hypertension or hypertension. . Clinical Impression: SNOMED CT(R) 1. Abrasion of left cornea, initial encounter ABRASION OF LEFT CORNEA ED Disposition ED Disposition Condition Comment Discharge Stable Neda Lawrence discharged to home/self care in stable condition. Follow-up Information 1. Marika Ortega CNP. Specialty: Nurse Practitioner [address] [place] [address] Contact information for after-discharge care Follow-up information has not been specified. New Prescriptions erythromycin 0.5% (ROMYCIN) ophthalmic ointment Administer into the left eye 4 (four) times a day for 7 days . naphazoline-pheniramine (NAPHCON-A) 0.025-0.3 % ophthalmic solution Apply 2 drops into affected eye(s) every 6 hours as needed for irritation . David Whittington MD 02/19/19 6462 C/O left eye pain and itching, not much drainange since last night. States she may have a metal shaving in her eye causing the irritation. Denies use of contacts. Also c/o headache and photosensitivity. documented in this encounter PT reports SOB for two weeks; PT reports loosing inhalator. documented in this encounter ED PROVIDER NOTE [facility] EMERGENCY DEPARTMENT NAME: Neda Lawrence AGE: 43 y.o. : 1975 VISIT DATE: 09/21/2019 CSN: [id number] PCP: Marika Ortega CNP Chief Complaint Patient presents with Elbow Injury Chief complaint: Left elbow injury. History of chief complaint: This 43-year-old female presents to ER stating that she struck her elbow against a metal pole at work approximately 2 to 3 weeks ago. Since that time she has had a gradual increase in pain to the elbow especially over the medial and lateral condyle. She states the pain is worse with supination. She states the pain is relieved when the elbow is flexed and the arm held close to the body. Past Medical History: Diagnosis Date Anemia Anxiety Asthma last inhaler use years ago Complication of anesthesia Depression Endometriosis Maureen-Mccullough infection Hypothyroidism 2016 still adjusting dose Obesity (BMI 30.0-34.9) PONV (postoperative nausea and vomiting) due to eating prior to surgery Varicose veins of legs ?? 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 Family History Problem Relation Age of Onset No Known Problems Mother No Known Problems Father No Known Problems Sister No Known Problems Brother Surgical complications Neg Hx Anesthesia problems Neg Hx Heart disease Neg Hx Clotting disorder Neg Hx Deep vein thrombosis Neg Hx Pulmonary embolism Neg Hx Social History Socioeconomic History Marital status: Spouse name: Not on file Number of children: Not on file Years of education: Not on file Highest education level: Not on file Occupational History Not on file Social Needs Financial resource strain: Not on file Food insecurity Worry: Not on file Inability: Not on file Transportation needs Medical: Not on file Non-medical: Not on file Tobacco Use Smoking status: Former Smoker Last attempt to quit: 10/04/2009 Years since quittin.9 Smokeless tobacco: Never Used Tobacco comment: 1 pack per week for 5 years-- quit 2009 Substance and Sexual Activity Alcohol use: No Drug use: No Sexual activity: Yes Partners: Male control/protection: Surgical Lifestyle Physical activity Days per week: Not on file Minutes per session: Not on file Stress: Not on file Relationships Social connections Talks on phone: Not on file Gets together: Not on file Attends bahai service: Not on file Active member of club or organization: Not on file Attends meetings of clubs or organizations: Not on file Relationship status: Not on file Other Topics Concern Not on file Social History Narrative Not on file Previous Medications Medication Sig [id number] 1.5 mg iron- 8.73 mg CpID Take by mouth . Lactobacillus acidophilus 0.5 mg (100 million cell) Tab Take 1 capsule by mouth daily . levothyroxine (SYNTHROID, LEVOTHROID) 88 MCG tablet Take 1 (one) tablet (88 mcg total) by mouth every morning . ProAir HFA 90 mcg/actuation inhaler Inhale 2 (two) puffs every 6 (six) hours as needed for wheezing . [DISCONTINUED] azithromycin (Z-JAIME) 5 day dose pack Two tabs given in ER already today (day 1). Please take 1 tablet by mouth daily on days 2-5. . [DISCONTINUED] fluocinonide (LIDEX) 0.05 % cream Apply topically 2 (two) times a day . [DISCONTINUED] hydroCHLOROthiazide (MICROZIDE) 12.5 mg capsule Take 1 (one) capsule (12.5 mg total) by mouth daily . Allergies Allergen Reactions Amoxicillin Hydrocortisone Itching Penicillin G Causes yeast infection Latex Rash Contact dermatitis Review of Systems Constitutional: Negative. HENT: Negative. Eyes: Negative. Respiratory: Negative. Cardiovascular: Negative. Gastrointestinal: Negative. Endocrine: Negative. Genitourinary: Negative. Musculoskeletal: Positive for arthralgias. Pain in left elbow especially over the medial and lateral epicondyle. Increased pain with elbow movement. Skin: Negative. Allergic/Immunologic: Negative. Neurological: Negative. Hematological: Negative. Psychiatric/Behavioral: Negative. All other systems reviewed and are negative. Patient Vitals for the past 24 hrs: BP Temp Temp src Pulse Resp SpO2 Height Weight 09/21/19 2103 109/89 98.2 F (36.8 C) Oral 87 16 98 % 5' 7 127 kg (280 lb) Physical Exam Vitals signs and nursing note reviewed. Constitutional: General: She is not in acute distress. Appearance: Normal appearance. She is not ill-appearing, toxic-appearing or diaphoretic. HENT: Head: Normocephalic and atraumatic. Nose: Nose normal. Eyes: Extraocular Movements: Extraocular movements intact. Pupils: Pupils are equal, round, and reactive to light. Neck: Musculoskeletal: Normal range of motion and neck supple. Cardiovascular: Rate and Rhythm: Normal rate and regular rhythm. Pulses: Normal pulses. Heart sounds: Normal heart sounds. Pulmonary: Effort: Pulmonary effort is normal. Breath sounds: Normal breath sounds. Abdominal: General: Abdomen is flat. Musculoskeletal: Normal range of motion. General: Tenderness present. No deformity. Comments: There is pain to palpation over the left elbow most notably over the medial and lateral epicondyle. No significant pain over the ulnar nerve area. Flexion extension of the elbow is intact. There is increased pain at the elbow with attempts at supination. Skin: General: Skin is warm and dry. Capillary Refill: Capillary refill takes less than 2 seconds. Findings: No bruising or erythema. Neurological: General: No focal deficit present. Mental Status: She is alert and oriented to person, place, and time. Psychiatric: Mood and Affect: Mood normal. Behavior: Behavior normal. Laboratory & Radiographic Imaging (if done): No results found for this visit on 09/21/19. XR Elbow Left 3+ Views (Standard) Final Result FINDINGS/ No evidence of acute fracture or dislocation. Joint spaces appear maintained. No sizable joint effusion. Overlying soft tissues are grossly unremarkable. Workstation ID: [id number] Procedures MDM The patient has been informed that they may have pre-hypertension or hypertension based on a blood pressure reading in the Emergency Department. I recommend that the patient call the primary care provider listed on their discharge instructions or a physician of their choice as soon as possible to arrange follow-up in the next 4 weeks for further evaluation of possible pre-hypertension or hypertension. . Clinical Impression: 1. Contusion of left elbow, initial encounter ED Disposition ED Disposition Condition Comment Discharge Stable Neda Lawrence discharged to home/self care in stable condition. Follow-up Information 1. [facility]. [facility] [phone] Contact information for after-discharge care Follow-up information has not been specified. Discontinued Medications Disp Refills Start End azithromycin (Z-JAIME) 5 day dose pack 4 tablet 0 08/25/2019 09/21/2019 Sig: Two tabs given in ER already today (day 1). Please take 1 tablet by mouth daily on days 2-5. . Class: Print Reason for Discontinue: Error fluocinonide (LIDEX) 0.05 % cream 120 g 2 11/10/2018 09/21/2019 Sig: Apply topically 2 (two) times a day . Route: Topical Reason for Discontinue: Error hydroCHLOROthiazide (MICROZIDE) 12.5 mg capsule 90 capsule 3 02/20/2019 09/21/2019 Sig: Take 1 (one) capsule (12.5 mg total) by mouth daily . Route: Oral Reason for Discontinue: Error Martin Nation DO 09/22/19 0102 Struck elbow at work approx 3 weeks ago. States thought it would get better on its own. States at this point, pt is struggling lifting arm or moving left elbow. Pt states has tried otc meds, and various splints, wraps and braces, without relief. SKILLED LABOR < 3 sec. Pulses present. + edema. documented in this encounter Patient has no questions or concerns upon discharge; no signs of distress noted upon departure. Swelling also noted to patient's hands. ED PROVIDER NOTE [facility] EMERGENCY DEPARTMENT NAME: Neda Lawrence AGE: 44 y.o. : 1975 VISIT DATE: 03/10/2020 CSN: [id number] PCP: Marika Ortega CNP Chief Complaint Patient presents with Leg Swelling redness, pain, swelling. States she's constantly on her legs, pain and swelling increased over the past few days. 44-year-old female presents to the emergency department for lower extremity edema with increasing redness of the right lower extremity. States that she has peripheral edema though does not take her water pill as she does not like to urinate that much. She states that she is having increasing pain in the right lower extremity with redness and streaks of the right lower extremity. No traumatic injury. No fever or chills. No recent travel or prolonged immobilization. No history of DVT or PE. No chest pain palpitations or shortness of breath. No history of MRSA. No other associated symptoms or complaints Past Medical History: Diagnosis Date Anemia Anxiety Asthma last inhaler use years ago Complication of anesthesia Depression Endometriosis Maureen-Mccullough infection Hypothyroidism 2017 still adjusting dose Obesity (BMI 30.0-34.9) PONV (postoperative nausea and vomiting) due to eating prior to surgery Varicose veins of legs ?? 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 Family History Problem Relation Age of Onset No Known Problems Mother No Known Problems Father No Known Problems Sister No Known Problems Brother Surgical complications Neg Hx Anesthesia problems Neg Hx Heart disease Neg Hx Clotting disorder Neg Hx Deep vein thrombosis Neg Hx Pulmonary embolism Neg Hx Social History Socioeconomic History Marital status: Spouse name: Not on file Number of children: Not on file Years of education: Not on file Highest education level: Not on file Occupational History Not on file Social Needs Financial resource strain: Not on file Food insecurity Worry: Not on file Inability: Not on file Transportation needs Medical: Not on file Non-medical: Not on file Tobacco Use Smoking status: Former Smoker Last attempt to quit: 10/04/2009 Years since quittin.4 Smokeless tobacco: Never Used Tobacco comment: 1 pack per week for 5 years-- quit 2009 Substance and Sexual Activity Alcohol use: No Drug use: No Sexual activity: Yes Partners: Male control/protection: Surgical Lifestyle Physical activity Days per week: Not on file Minutes per session: Not on file Stress: Not on file Relationships Social connections Talks on phone: Not on file Gets together: Not on file Attends bahai service: Not on file Active member of club or organization: Not on file Attends meetings of clubs or organizations: Not on file Relationship status: Not on file Other Topics Concern Not on file Social History Narrative Not on file Previous Medications Medication Sig busPIRone (BUSPAR) 10 MG tablet Take 1 (one) tablet (10 mg total) by mouth 3 (three) times a day . FLUoxetine (PROZAC) 20 MG capsule Take 1 (one) capsule (20 mg total) by mouth daily . hydroCHLOROthiazide (MICROZIDE) 12.5 mg capsule Take 1 (one) capsule (12.5 mg total) by mouth daily as needed (swelling) . [id number]-DL-[id number]-[id number]-[id number]-be-mv 1.5 mg iron- 8.73 mg CpID Take by mouth . Lactobacillus acidophilus 0.5 mg (100 million cell) Tab Take 1 capsule by mouth daily . levothyroxine (SYNTHROID, LEVOTHROID) 88 MCG tablet take 1 tablet by mouth every morning ProAir HFA 90 mcg/actuation inhaler Inhale 2 (two) puffs every 6 (six) hours as needed for wheezing . Allergies Allergen Reactions Amoxicillin Hydrocortisone Itching Penicillin G Causes yeast infection Latex Rash Contact dermatitis Review of Systems Musculoskeletal: As per HPI Skin: As per HPI All other systems reviewed and are negative. Patient Vitals for the past 24 hrs: BP Temp Temp src Pulse Resp SpO2 Height Weight 03/10/20 1555 (!) 133/96 98.4 F (36.9 C) Oral 73 16 97 % 5' 7 127 kg (280 lb) Physical Exam Vitals signs and nursing note reviewed. Constitutional: General: She is not in acute distress. Appearance: Normal appearance. She is obese. She is not ill-appearing, toxic-appearing or diaphoretic. HENT: Head: Normocephalic and atraumatic. Right Ear: Tympanic membrane, ear canal and external ear normal. Left Ear: Tympanic membrane, ear canal and external ear normal. Mouth/Throat: Mouth: Mucous membranes are moist. Pharynx: Oropharynx is clear. No posterior oropharyngeal erythema. Eyes: Conjunctiva/sclera: Conjunctivae normal. Cardiovascular: Rate and Rhythm: Normal rate and regular rhythm. Pulses: Normal pulses. Heart sounds: Normal heart sounds. Pulmonary: Effort: Pulmonary effort is normal. Breath sounds: Normal breath sounds. Musculoskeletal: Comments: Patient has chronic appearing edema bilateral lower extremities. There is some circumferential erythema of the right lower extremity mid tib-fib distally ending above the ankle. There are some proximal streaks. No crepitus. No significant tenderness. No palpable cord or clinical evidence of DVT. Knee ankle and foot exam normal. Remainder of extremity exam is normal. Skin: Capillary Refill: Capillary refill takes less than 2 seconds. Comments: Erythema right lower extremity as notated above. Skin exam is otherwise normal. No petechiae or purpura Neurological: General: No focal deficit present. Mental Status: She is alert and oriented to person, place, and time. Sensory: No sensory deficit. Motor: No weakness. Psychiatric: Mood and Affect: Mood normal. Behavior: Behavior normal. Laboratory & Radiographic Imaging (if done): Results for orders placed or performed during the hospital encounter of 03/10/20 POC CBC and Differential Result Value Ref Range WBC 6.20 4.50 - 11.00 K/mcL RBC 4.66 4.00 - 5.20 M/mcL Hemoglobin 13.9 12.0 - 16.0 g/dL Hematocrit 41.0 36.0 - 46.0 % MCV 88.0 80.0 - 100.0 fL MCH 29.8 26.0 - 34.0 pg MCHC 33.9 31.0 - 37.0 g/dL RDW - CV 13.8 11.6 - 14.8 % Platelets 268 150 - 400 K/mcL MPV 10.4 9.4 - 12.4 fL Neutrophils 58.1 % Lymphocytes 34.1 % Mixed 7.8 % Neutrophil Abs 3.6 1.7 - 7.0 K/mcl Lymphocyte Abs 2.1 0.9 - 4.0 K/mcl Mixed Abs 0.5 K/mcl POC PT/INR Result Value Ref Range POC INR 1.0 0.8 - 1.1 POC Basic Metabolic Panel Result Value Ref Range Glucose 85 65 - 99 mg/dL BUN 13 8 - 25 mg/dL Creatinine 0.72 0.40 - 1.10 mg/dL GFR 101 >=60 mL/min/1.73 m2 Sodium 141 135 - 145 mmol/L Potassium 3.9 3.5 - 5.1 mmol/L Chloride 107 98 - 108 mmol/L TCO2 23 21 - 32 mmol/L Ionized Calcium 4.6 4.5 - 5.3 mg/dL POC D-dimer Result Value Ref Range POC D-Dimer 279 <350 ng/mL DDU No orders to display Procedures MDM Number of Diagnoses or Management Options Diagnosis management comments: No significant diagnostic abnormalities. Exam is not consistent with DVT, d-dimer is normal. Presentation is consistent with cellulitis. No evidence of sepsis. No evidence of necrotizing fasciitis. Patient has been advised to take her diuretic as prescribed. Based on her allergies she will be given a prescription for clindamycin. She has been referred back to her primary care provider for close outpatient follow-up The patient has been informed that they may have pre-hypertension or hypertension based on a blood pressure reading in the Emergency Department. I recommend that the patient call the primary care provider listed on their discharge instructions or a physician of their choice as soon as possible to arrange follow-up in the next 4 weeks for further evaluation of possible pre-hypertension or hypertension. . Clinical Impression: 1. Cellulitis of right lower extremity ED Disposition ED Disposition Condition Comment Discharge Good Neda Lawrence discharged to home/self care in stable condition. Follow-up Information 1. Marika Ortega CNP. Specialty: Nurse Practitioner [address] [place] [address] Contact information for after-discharge care Follow-up information has not been specified. New Prescriptions clindamycin (CLEOCIN) 150 MG capsule Take 3 (three) capsules (450 mg total) by mouth 3 (three) times a day for 7 days . HYDROcodone-acetaminophen (NORCO) 5-325 mg per tablet Take 1 (one) tablet by mouth every 6 (six) hours as needed for pain (Days supply per fill: {DAYS SUPPLY:3) . Leonid Echols DO 03/10/20 1651 Patient reports she has not been taking her water pill; reports swelling to BLE has increased significantly and pain is now intolerable. Some redness noted to right lower leg, no redness noted to LLE. Redness is not streaking. documented in this encounter Applied 6 FAHEEM wrap to pts left knee. Instructed on care and use. ED PROVIDER NOTE [facility] EMERGENCY DEPARTMENT NAME: Neda Lawrence AGE: 44 y.o. : 1975 VISIT DATE: 03/17/2020 CSN: [id number] PCP: Marika Ortega CNP Chief Complaint Patient presents with Knee Pain 44-year-old female presents to the emergency department for evaluation of left knee pain. Patient was seen approximately 1 week ago for cellulitis of the right lower extremity. D-dimer normal. She has been taking her antibiotics in the erythema of that extremity has resolved, she states that she has been favoring her right leg therefore putting more pressure on her left foot and now has pain of the left knee. Pain occurs with ambulation and weightbearing. Pain remains localized to the left knee. No calf discomfort or asymmetry. No erythema. No chest pain palpitations or shortness of breath. No fever. No recent travel or prolonged immobilization. No history of DVT or PE Past Medical History: Diagnosis Date Anemia Anxiety Asthma last inhaler use years ago Complication of anesthesia Depression Endometriosis Maureen-Mccullough infection Hypothyroidism 2017 still adjusting dose Obesity (BMI 30.0-34.9) PONV (postoperative nausea and vomiting) due to eating prior to surgery Varicose veins of legs ?? 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 Family History Problem Relation Age of Onset No Known Problems Mother No Known Problems Father No Known Problems Sister No Known Problems Brother Surgical complications Neg Hx Anesthesia problems Neg Hx Heart disease Neg Hx Clotting disorder Neg Hx Deep vein thrombosis Neg Hx Pulmonary embolism Neg Hx Social History Socioeconomic History Marital status: Spouse name: Not on file Number of children: Not on file Years of education: Not on file Highest education level: Not on file Occupational History Not on file Social Needs Financial resource strain: Not on file Food insecurity Worry: Not on file Inability: Not on file Transportation needs Medical: Not on file Non-medical: Not on file Tobacco Use Smoking status: Former Smoker Last attempt to quit: 10/04/2009 Years since quittin.4 Smokeless tobacco: Never Used Tobacco comment: 1 pack per week for 5 years-- quit 2009 Substance and Sexual Activity Alcohol use: No Drug use: No Sexual activity: Yes Partners: Male control/protection: Surgical Lifestyle Physical activity Days per week: Not on file Minutes per session: Not on file Stress: Not on file Relationships Social connections Talks on phone: Not on file Gets together: Not on file Attends bahai service: Not on file Active member of club or organization: Not on file Attends meetings of clubs or organizations: Not on file Relationship status: Not on file Other Topics Concern Not on file Social History Narrative Not on file Previous Medications Medication Sig busPIRone (BUSPAR) 10 MG tablet Take 1 (one) tablet (10 mg total) by mouth 3 (three) times a day . clindamycin (CLEOCIN) 150 MG capsule Take 3 (three) capsules (450 mg total) by mouth 3 (three) times a day for 7 days . FLUoxetine (PROZAC) 20 MG capsule Take 1 (one) capsule (20 mg total) by mouth daily . hydroCHLOROthiazide (MICROZIDE) 12.5 mg capsule Take 1 (one) capsule (12.5 mg total) by mouth daily as needed (swelling) . [id number]-be-mv 1.5 mg iron- 8.73 mg CpID Take by mouth . Lactobacillus acidophilus 0.5 mg (100 million cell) Tab Take 1 capsule by mouth daily . levothyroxine (SYNTHROID, LEVOTHROID) 88 MCG tablet take 1 tablet by mouth every morning ProAir HFA 90 mcg/actuation inhaler Inhale 2 (two) puffs every 6 (six) hours as needed for wheezing . Allergies Allergen Reactions Amoxicillin Hydrocortisone Itching Penicillin G Causes yeast infection Latex Rash Contact dermatitis Review of Systems Musculoskeletal: Left knee pain as per HPI All other systems reviewed and are negative. Patient Vitals for the past 24 hrs: BP Temp Temp src Pulse Resp SpO2 Height Weight 03/17/20 1717 (!) 128/90 97.8 F (36.6 C) Skin 74 16 98 % 5' 6 127 kg (280 lb) Physical Exam Vitals signs and nursing note reviewed. Constitutional: General: She is not in acute distress. Appearance: Normal appearance. She is obese. She is not ill-appearing, toxic-appearing or diaphoretic. HENT: Head: Normocephalic and atraumatic. Eyes: Conjunctiva/sclera: Conjunctivae normal. Cardiovascular: Rate and Rhythm: Normal rate and regular rhythm. Pulses: Normal pulses. Heart sounds: Normal heart sounds. Pulmonary: Effort: Pulmonary effort is normal. Breath sounds: Normal breath sounds. Musculoskeletal: Comments: Patient has trace edema bilateral lower extremity which is chronic per the patient. This is much improved from her last visit. She has reproducible soft tissue tenderness along the medial lateral joint line of the left knee as well as increased pain with flexion of the knee. There is no erythema or warmth. There is no asymmetry of the lower extremities. No palpable cord or calf discomfort. No clinical evidence of DVT. Skin: General: Skin is warm and dry. Capillary Refill: Capillary refill takes less than 2 seconds. Findings: No bruising, erythema or rash. Neurological: General: No focal deficit present. Mental Status: She is alert and oriented to person, place, and time. Psychiatric: Mood and Affect: Mood normal. Behavior: Behavior normal. Laboratory & Radiographic Imaging (if done): No results found for this visit on 03/17/20. XR Knee Left 2 Views (Standard) Non-public Result 1. No acute fracture or osseous abnormality identified as described above. 2. Some stable peripheral soft tissue varicose veins suspected. Correlate clinically. Workstation ID: [id number] Procedures MDM Number of Diagnoses or Management Options Diagnosis management comments: Faheem wrap will be applied by nursing staff. Patient does have a follow-up appointment tomorrow with primary care. The patient has been informed that they may have pre-hypertension or hypertension based on a blood pressure reading in the Emergency Department. I recommend that the patient call the primary care provider listed on their discharge instructions or a physician of their choice as soon as possible to arrange follow-up in the next 4 weeks for further evaluation of possible pre-hypertension or hypertension. . Clinical Impression: 1. Strain of left knee, initial encounter ED Disposition ED Disposition Condition Comment Discharge Good Neda Lawrence discharged to home/self care in stable condition. Follow-up Information 1. Marika Ortega CNP. Specialty: Nurse Practitioner Why: Tomorrow as scheduled [address] [phone] Contact information for after-discharge care Follow-up information has not been specified. Leonid Echols DO 03/17/20 1735 Pt was seen at [facility] on 03/10/20 with Dx of cellulitis to right leg. Pt states was putting more weight on left leg due to this. C/o right knee pain. More pain with weightbearing and movement. 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 : 1975 VISIT DATE: 10/29/2020 CSN: [id number] PCP: Marika Ortega CNP Chief Complaint Patient presents with Knee Pain Chief complaint: Left knee pain. History chief complaint: This 45-year-old female presents to ER stating that she was walking to the store today approximately 2 PM when she felt a sudden pop and sharp pain in the left medial knee. She now complains of pain to the area which is worse with weightbearing. Patient has a history of previous knee sprains but has never been evaluated for this. She states she is helping her mother who was incapacitated which may be increasing strain on her knees. Past Medical History: Diagnosis Date Anemia Anxiety Asthma last inhaler use years ago Complication of anesthesia Depression Endometriosis Maureen-Mccullough infection Hypothyroidism 2016 still adjusting dose Obesity (BMI 30.0-34.9) PONV (postoperative nausea and vomiting) due to eating prior to surgery Varicose veins of legs ?? 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 Family History Problem Relation Age of Onset No Known Problems Mother No Known Problems Father No Known Problems Sister No Known Problems Brother Surgical complications Neg Hx Anesthesia problems Neg Hx Heart disease Neg Hx Clotting disorder Neg Hx Deep vein thrombosis Neg Hx Pulmonary embolism Neg Hx Social History Socioeconomic History Marital status: Spouse name: Not on file Number of children: Not on file Years of education: Not on file Highest education level: Not on file Occupational History Not on file Social Needs Financial resource strain: Not on file Food insecurity Worry: Often true Inability: Often true Transportation needs Medical: Not on file Non-medical: Not on file Tobacco Use Smoking status: Former Smoker Quit date: 10/04/2009 Years since quittin.0 Smokeless tobacco: Never Used Tobacco comment: 1 pack per week for 5 years-- quit 2009 Substance and Sexual Activity Alcohol use: No Drug use: No Sexual activity: Yes Partners: Male control/protection: Surgical Lifestyle Physical activity Days per week: Not on file Minutes per session: Not on file Stress: Not on file Relationships Social connections Talks on phone: Not on file Gets together: Once a week Attends bahai service: Not on file Active member of club or organization: Not on file Attends meetings of clubs or organizations: Not on file Relationship status: Not on file Other Topics Concern Not on file Social History Narrative Not on file Previous Medications Medication Sig FLUoxetine (PROZAC) 20 MG capsule Take 1 (one) capsule (20 mg total) by mouth daily . hydroCHLOROthiazide (HYDRODIURIL) 25 MG tablet Take 1 (one) tablet (25 mg total) by mouth daily . [id number]-SZ-fww-pdd-HEG-HHKN-be-mv 1.5 mg iron- 8.73 mg CpID Take by mouth . L.acidophilus,helvet-B.bifidum (Acidophilus Probiotic Complex) 250 million cell cap Take 1 capsule by mouth daily . levothyroxine (SYNTHROID, LEVOTHROID) 88 MCG tablet Take 1 (one) tablet (88 mcg total) by mouth every morning . nitrofurantoin, macrocrystal-monohydrate, (Macrobid) 100 MG capsule Take 1 (one) capsule (100 mg total) by mouth 2 (two) times a day . oxybutynin (DITROPAN-XL) 10 MG 24 hr tablet Take 1 (one) tablet (10 mg total) by mouth daily . ProAir HFA 90 mcg/actuation inhaler Inhale 2 (two) puffs every 6 (six) hours as needed for wheezing . [DISCONTINUED] Lactobacillus acidophilus 0.5 mg (100 million cell) Tab Take 1 capsule by mouth daily . Allergies Allergen Reactions Amoxicillin Hydrocortisone Itching Penicillin G Causes yeast infection Latex Rash Contact dermatitis Review of Systems Constitutional: Negative. HENT: Negative. Eyes: Negative. Respiratory: Negative. Cardiovascular: Negative. Gastrointestinal: Negative. Endocrine: Negative. Genitourinary: Negative. Musculoskeletal: Positive for arthralgias and myalgias. Pain in left medial knee. Skin: Negative. Allergic/Immunologic: Negative. Neurological: Negative. Hematological: Negative. Psychiatric/Behavioral: Negative. All other systems reviewed and are negative. Patient Vitals for the past 24 hrs: BP Temp Pulse Resp SpO2 Height Weight 10/29/20 1424 (!) 118/98 97 F (36.1 C) 99 18 98 % 5' 7 109.8 kg (242 lb) Physical Exam Vitals signs and nursing note reviewed. Constitutional: General: She is not in acute distress. Appearance: Normal appearance. She is not ill-appearing, toxic-appearing or diaphoretic. HENT: Head: Normocephalic and atraumatic. Right Ear: External ear normal. Left Ear: External ear normal. Nose: Nose normal. Mouth/Throat: Mouth: Mucous membranes are moist. Pharynx: No oropharyngeal exudate. Eyes: Extraocular Movements: Extraocular movements intact. Pupils: Pupils are equal, round, and reactive to light. Neck: Musculoskeletal: Normal range of motion and neck supple. Cardiovascular: Rate and Rhythm: Normal rate and regular rhythm. Pulses: Normal pulses. Heart sounds: Normal heart sounds. Pulmonary: Effort: Pulmonary effort is normal. Breath sounds: Normal breath sounds. Musculoskeletal: Normal range of motion. General: Tenderness present. Comments: There is tenderness to palpation over the left medial knee. Anterior and posterior drawer tests are negative. There is increased pain with MCL testing. Straight leg raise is nearly 90 degrees with no obvious crepitus. There is no popliteal pain. Skin: General: Skin is warm and dry. Capillary Refill: Capillary refill takes less than 2 seconds. Neurological: General: No focal deficit present. Mental Status: She is alert and oriented to person, place, and time. Psychiatric: Mood and Affect: Mood normal. Behavior: Behavior normal. Laboratory & Radiographic Imaging (if done): No results found for this visit on 10/29/20. XR Knee Left 2 Views (Standard) Final Result No evidence for acute fracture or malalignment. Workstation ID: [id number] Procedures MDM Number of Diagnoses or Management Options Sprain of left knee, unspecified ligament, initial encounter Diagnosis management comments: X-ray left knee negative. On testing it appears patient may have MCL injury. She will need further evaluation by orthopedics if continued problems. Patient will be sent home with an Faheem wrap, RICE instructions and a prescription for NSAIDs. The patient has been informed that they may have pre-hypertension or hypertension based on a blood pressure reading in the Emergency Department. I recommend that the patient call the primary care provider listed on their discharge instructions or a physician of their choice as soon as possible to arrange follow-up in the next 4 weeks for further evaluation of possible pre-hypertension or hypertension. . Clinical Impression: 1. Sprain of left knee, unspecified ligament, initial encounter ED Disposition ED Disposition Condition Comment Discharge Stable Neda Lawrence discharged to home/self care in stable condition. Follow-up Information 1. Marika Ortega CNP. Specialty: Nurse Practitioner [address] [place] [id number] 2. Ana Darling MD. Specialty: Orthopedic Surgery Why: As needed, If symptoms worsen Renetta Zayas [facility] [id number] Contact information for after-discharge care Follow-up information has not been specified. New Prescriptions naproxen sodium (ANAPROX) 550 MG tablet Take 1 (one) tablet (550 mg total) by mouth 2 (two) times a day as needed (pain) . Martin Nation DO 10/29/20 1553 Martin Nation DO 10/29/20 1639 PT C/P LEFT KNEE PAIN, STATES SHE HAS HURT IT IN THE PAST, TODAY SHE FELT SOMETHING POP, STATES THE PAIN FEELS LIKE SOMEONE IS STABBING SOMETHING THROUGH HER KNEE, +MSP documented in this encounter Care Teams (unrecognized sec tion and content) Seo Professional Relationship Specialty Start Date End Date Marika Ortega CNP PCP - General Nurse Practitioner 12/06/17 Seo Professional Relationship Specialty Start Date End Date OrtegaMartchristopher Reyesa, [employer] RE[employer]ACER [address] [place] [id number] PCP - General Nurse Practitioner 12/06/17 Seo Professional Relationship Specialty Start Date End Date Ortega Marika Reyesa, [employer] [address] [place] [phone] PCP - General Nurse Practitioner 12/06/17 Seo Professional Relationship Specialty Start Date End Date Ortega Marika Bermudez, [employer]ER [address] [place] [id number] PCP - General Nurse Practitioner 12/06/17 Seo Professional Relationship Specialty Start Date End Date Ortega Marika Bermudez, [employer] RE[employer]ACER [address] [place] [id number] PCP - General Nurse Practitioner 12/06/17 Seo Professional Relationship Specialty Start Date End Date Juan Alberto Marika Bermudez, [employer]ER [address] [place] [phone] PCP - General Nurse Practitioner 12/06/17 Seo Professional Relationship Specialty Start Date End Date Ortega Marika Bermudez, [employer] RE[employer]ER [address] [place] [id number] PCP - General Nurse Practitioner 12/06/17 Seo Professional Relationship Specialty Start Date End Date Ortega Marika Bermudez, [employer] RE[employer]ER [address] [place] [id number] PCP - General Nurse Practitioner 12/06/17 Seo Professional Relationship Specialty Start Date End Date Marika Ortega, [employer] RE[employer]ER [address] [place] [address], [place] [address] PCP - General Nurse Practitioner 12/06/17 Seo Professional Relationship Specialty Start Date End Date Marika Ortega, [employer] [address] [place] [address], [place] [address] PCP - General Nurse Practitioner 12/06/17 Seo Professional Relationship Specialty Start Date End Date Marika Ortega, [employer]PL[employer]ER [address] [place] [address], [place] [address] PCP - General Nurse Practitioner 12/06/17 Seo Professional Relationship Specialty Start Date End Date Marika Ortega, [employer]ER [address] [place] [address], [place] [address] PCP - General Nurse Practitioner 12/06/17 Seo Professional Relationship Specialty Start Date End Date Marika Ortega, [employer]ER [address] [place] [address], [place] [address] PCP - General Nurse Practitioner 12/06/17 Seo Professional Relationship Specialty Start Date End Date Marika Ortega, [employer]ER [address] [place] [address], [place] [address] PCP - General Nurse Practitioner 12/06/17 Seo Professional Relationship Specialty Start Date End Date Marika Ortega, [employer]ER [address] [place] [address], [place] [address] PCP - General Nurse Practitioner 12/06/17 Seo Professional Relationship Specialty Start Date End Date Marika Ortega, [employer]ER [address] [place] [address], [place] [address] PCP - General Nurse Practitioner 12/06/17 Seo Professional Relationship Specialty Start Date End Date Marika Ortega, [employer]ER [address] [place] [address], [place] [address] PCP - General Nurse Practitioner 12/06/17 Seo Professional Relationship Specialty Start Date End Date Marika Ortega, [employer]ER [address] [place] [address], [place] [address] PCP - General Nurse Practitioner 12/06/17 Seo Professional Relationship Specialty Start Date End Date OrtegaMarika CNP [address] [place] [address], [place] [address] PCP - General Nurse Practitioner 12/06/17 Seo Professional Relationship Specialty Start Date End Date Marika Ortega CNP [address] [place] [address], [place] [address] PCP - General Nurse Practitioner 12/06/17 Seo Professional Relationship Specialty Start Date End Date Ortega Marika Lara [employer] [address] [place] [address], [place] [address] PCP - General Nurse Practitioner 12/06/17 Seo Professional Relationship Specialty Start Date End Date Juan Alberto Marika ReyesaJULIA [address] [place] [address], [place] [address] PCP - General Nurse Practitioner 12/06/17 Seo Professional Relationship Specialty Start Date End Date Marika Ortega CNP [address] [place] [address], [place] [address] PCP - General Nurse Practitioner 12/06/17 Arpita Coto, sack sorterSecond Officer 04/19/23 Seo Professional Relationship Specialty Start Date End Date Ortega Marika LaraJULIA [address] [place] [address], [place] [address] PCP - General Nurse Practitioner 12/06/17 Seo Professional Relationship Specialty Start Date End Date Ortega Marika Bermudez CNP [address] [place] [address], [place] [address] PCP - General Nurse Practitioner 12/06/17 Seo Professional Relationship Specialty Start Date End Date OrtegaMarika [employer] [address] [place] [address], [place] [address] PCP - General Nurse Practitioner 12/06/17 Seo Professional Relationship Specialty Start Date End Date OrtegaMarika, [employer]PL[employer]ER [address] [place] [address] PCP - General Nurse Practitioner 12/06/17 Seo Professional Relationship Specialty Start Date End Date Marika Ortega, [employer]PL[employer]ER [address] [place] [address], [place] [address] PCP - General Nurse Practitioner 12/06/17 Seo Professional Relationship Specialty Start Date End Date Marika Ortega, [employer]ER [address] [place] [address], [place] [address] PCP - General Nurse Practitioner 12/06/17 Seo Professional Relationship Specialty Start Date End Date Marika Ortega, [employer]ER [address] [place] [address], [place] [address] PCP - General Nurse Practitioner 12/06/17 Seo Professional Relationship Specialty Start Date End Date Marika Ortega, [employer]ER [address] [facility] [place] [address] PCP - General Nurse Practitioner 12/06/17 Seo Professional Relationship Specialty Start Date End Date Marika Ortega, [employer]ER [address] [place] [address] PCP - General Nurse Practitioner 12/06/17 Seo Professional Relationship Specialty Start Date End Date Marika Ortega CNP [address] [place] [address] PCP - General Nurse Practitioner 12/06/17 Seo Professional Relationship Specialty Start Date End Date Marika Ortega CNP [address] [place] [id number] PCP - General Nurse Practitioner 12/06/17 FOR RECORDS PERTAINING TO PATIENTS WHO ARE OR HAVE BEEN ENROLLED IN A CHEMICAL DEPENDENCY/SUBSTANCEABUSE PROGRAM, SOME INFORMATION MAY BE OMITTED. This clinical summary was aggregated from multiple sources. Caution should be exercised in using it in the provision of clinical care. This summary normalizes information from multiple sources, and as a consequence, information in this document may materially change the coding, format and clinical context of patient data. In addition, data may be omitted in some cases. CLINICAL DECISIONS SHOULD BE BASED ON THE PRIMARY CLINICAL RECORDS. [facility]. provides no warranty or guarantee of the accuracy or completeness of information in this document.
== END | disposition home or self-care (01) ==
PROVIDERS: Visit Provider Physician Assistant Surgical
DX: N89.8 Other specified noninflammatory disorders of vagina (principal); R39.15 Urgency of urination
CPT/HCPCS: 87086